=== PATIENT | female | born 1940 | race African-American/Black ===

== ENCOUNTER 2016-08-02 13:31 | Emergency (ER) | payer MEDICARE ==
[~2016-08-02] VITALS: Ht 160 cm; Wt 90.0 kg
[~2016-08-02 13:31] MED LIST changes: -CHLO25TA2 PO; -CLON0.1T PO; -HYDR-3800 PO; -HYDR25TA5 PO; -HYDR50TA15 PO; -METO100T9 PO
[2016-08-02 13:33] VITALS: BP 206/113; PULSE 68; RESP 14; TEMP 97.6; O2SAT 94
[2016-08-09] MEDS ORDERED: LOVA10TA PO (10:55)
[2016-08-09] MEDS ORDERED: HYDR25TA35 PO (10:55)
[2016-08-09] MEDS ORDERED: POTA-163 PO (10:55)
[2016-09-01] MEDS ORDERED: METO100T9 PO (11:51)
[2016-09-01] MEDS ORDERED: HYDR25TA5 PO (11:51)
[2016-09-13] MEDS ORDERED: HYDR25TA5 PO (10:25)
[2016-11-28] MEDS ORDERED: CHLO25TA2 PO (16:07)
[2016-11-28] MEDS ORDERED: HYDR50TA15 PO (16:07)
[2016-11-28] MEDS ORDERED: CLON0.1T PO ×2 (16:12→16:43)
[2016-12-30] MEDS ORDERED: HYDR-3800 PO (10:49)
[2016-12-30] MEDS ORDERED: CHLO25TA2 PO (10:49)
[2016-12-30] MEDS ORDERED: CLON0.1T PO (10:49)
[2017-01-10] MEDS ORDERED: METO100T PO (10:21)
== END 2016-08-02 18:50 | disposition left against medical advice (07) ==
LOC: NED 13:31
DX: R53.1 Weakness (principal)
CPT/HCPCS: 99281

== ENCOUNTER → 2016-08-02 | Outpatient (CLI) | payer MEDICARE ==
[~2016-08-02] MED LIST: ACET325T11 PO; CETI10 PO; CHLO25TA2 PO; CLON.1 PO; CLON0.1T PO; HYDR-2768 PO; HYDR-3800 PO; HYDR25TA35 PO; HYDR25TA5 PO; HYDR50TA15 PO; KCL20 PO; LOVA10TA PO; METO100T PO; METO100T9 PO; POTA-163 PO; PRED20 PO; VENTAER INH
[2016-08-02 15:37] LABS: AUTOMATED NEUTROPHIL # 4.2 TH/MM3 (1.8-7.7); BASOPHIL # 0.1 TH/MM3 (0-0.2); BASOPHIL % 1.3 % (0.0-2.0); EOSINOPHIL # 0.3 TH/MM3 (0-0.4); EOSINOPHIL % 3.6 % (0.0-4.0); HEMATOCRIT 45.7 % (35.0-46.0); HEMO FLAGS DIFF FINAL; LYMPH % 34.4 % (9.0-44.0); LYMPHOCYTE # 2.7 TH/MM3 (1.0-4.8); MEAN CELL VOLUME 78.1 FL (80.0-100.0); MEAN CORPUSCULAR HEMOGLOBIN 25.4 PG (27.0-34.0); MEAN CORPUSCULAR HGB CONC 32.5 % (32.0-36.0); MONO % 7.4 % (0.0-8.0); NEUT % 53.3 % (16.0-70.0); PLATELET COUNT 255 TH/MM3 (150-450); RED BLOOD COUNT 5.85 MIL/MM3 (4.00-5.30); RED CELL DISTRIBUTION WIDTH 15.7 % (11.6-17.2); WHITE BLOOD COUNT 7.9 TH/MM3 (4.0-11.0)
[2016-08-02 16:13] LABS: ALT (GPT) 33 U/L (10-53); ANION GAP 5 MEQ/L (5-15); AST (GOT) 23 U/L (15-37); BICARBONATE 33.3 MEQ/L (21.0-32.0); BLOOD UREA NITROGEN 9 MG/DL (7-18); CHLORIDE 98 MEQ/L (98-107); GLOMERULAR FILTRATION RATE 80 ML/MIN (>89); GLUCOSE,FASTING 96 MG/DL (74-99); SODIUM (NA) 136 MEQ/L (136-145)
[2016-08-02 16:31] LABS: POTASSIUM 3.7 MEQ/L (3.5-5.1)
[2016-08-02 16:36] LABS: ALKALINE PHOSPHATASE 70 U/L (45-117); TOTAL BILIRUBIN ADULT 0.6 MG/DL (0.2-1.0)
== END ==
LOC: CLAB 15:23
PROVIDERS: ATTEND Family Medicine
DX: E53.8 Deficiency of other specified B group vitamins (principal); J43.9 Emphysema, unspecified; E87.6 Hypokalemia; I10 Essential (primary) hypertension; D64.9 Anemia, unspecified
CPT/HCPCS: 36415; 80053; 82607; 85025

== ENCOUNTER → 2016-08-03 | Outpatient (CLI) | payer MEDICARE ==
[~2016-08-03] MED LIST changes: +CHLO25TA2 PO; +CLON0.1T PO; +HYDR-3800 PO; +HYDR25TA5 PO; +HYDR50TA15 PO; +METO100T9 PO
[2016-08-03 13:15] LABS: HDL CHOLESTEROL 48.8 MG/DL (40.0-60.0); LDL CHOLESTEROL 106 MG/DL (0-99)
[2016-08-03 17:31] LABS: HEMOGLOBIN A1a 1.2 %; HEMOGLOBIN A1b 0.9 %; HEMOGLOBIN Ao 85.1 %; HEMOGLOBIN F 1.2 %; HEMOGLOBIN LA1C 1.9 %; HEMOGLOBIN P3 3.6 %
== END ==
LOC: CLAB 12:17
PROVIDERS: ATTEND Family Medicine
DX: E78.5 Hyperlipidemia, unspecified (principal); M79.2 Neuralgia and neuritis, unspecified; R73.09 Other abnormal glucose
CPT/HCPCS: 36415; 80061; 83036

== ENCOUNTER → 2016-09-12 | Outpatient (CLI) | payer MEDICARE ==
[~2016-09-12] MED LIST changes: -ACET325T11 PO; -CETI10 PO; -HYDR-2768 PO; -KCL20 PO; -PRED20 PO
--- NOTE | 2016-09-14 08:59 | RSPPFT ---
DATE OF PROCEDURE: 09/12/16 COMMENTS: Spirometry shows FVC is 1.5 at 71% of predicted, FEV1 of 1.3 at 87%, FEV1/FVC ratio is normal. Flow is decreased at FEF 25, FEF 50, FEF 25-75. There is no response following acutely inhaled bronchodilator treatment. Lung volumes show residual volume is increased. TLC is normal. Diffusion capacity is decreased. Flow volume loop indicates a normal pattern. IMPRESSION: 1. Mild small airways obstructive lung disease. 2. No response after bronchodilator treatment. 3. Lung volumes show hyperinflation. 4. Moderate loss in diffusion capacity.
== END ==
LOC: HRSP 09:06
PROVIDERS: ATTEND Specialist
DX: J84.10 Pulmonary fibrosis, unspecified (principal)
CPT/HCPCS: 94060; 94726; 94729

== ENCOUNTER 2016-12-15 11:03 | Emergency (ER) | payer MEDICARE ==
[~2016-12-15 11:03] MED LIST changes: -HYDR-3800 PO; -HYDR25TA35 PO; -HYDR25TA5 PO; -METO100T PO
[2016-12-15 11:05] VITALS: BP 204/104; PULSE 90; RESP 20; TEMP 97.8; O2SAT 92
[2016-12-15 11:45] VITALS: O2SAT 96
[2016-12-15] MEDS ORDERED: SODIUM CHLORIDE 0.9% FLUSH 10 ML FLUSH IV FLUSH PRN (11:45)
[2016-12-15 12:05] LABS: AUTOMATED NEUTROPHIL # 2.6 TH/MM3 (1.8-7.7); BASOPHIL # 0.1 TH/MM3 (0-0.2); EOSINOPHIL # 0.1 TH/MM3 (0-0.4); EOSINOPHIL % 2.4 % (0.0-4.0); HEMATOCRIT 42.7 % (35.0-46.0); HEMO FLAGS DIFF FINAL; LYMPH % 42.1 % (9.0-44.0); LYMPHOCYTE # 2.3 TH/MM3 (1.0-4.8); MEAN CELL VOLUME 77.9 FL (80.0-100.0); MEAN CORPUSCULAR HEMOGLOBIN 25.9 PG (27.0-34.0); MEAN CORPUSCULAR HGB CONC 33.3 % (32.0-36.0); MONO % 7.3 % (0.0-8.0); NEUT % 47.2 % (16.0-70.0); PLATELET COUNT 240 TH/MM3 (150-450); RED BLOOD COUNT 5.48 MIL/MM3 (4.00-5.30); RED CELL DISTRIBUTION WIDTH 14.5 % (11.6-17.2); WHITE BLOOD COUNT 5.5 TH/MM3 (4.0-11.0)
[2016-12-15 12:20] LABS: BACTERIA, URINE RARE /hpf; BLOOD, URINE NEG (NEG); COMMENT (UR) CULT NOT INDICATED; CULTURE IF INDICATED CULT NOT INDICATED; GLUCOSE,URINE NEG (NEG); KETONE, URINE NEG (NEG); NITRITE,URINE NEG (NEG); PH, URINE 7.5 (5.0-8.5); RENAL EPITHELIAL CELLS <1 /hpf; SQUAMOUS EPITHELIAL CELL URINE 4 /hpf (0-5); TRANSITIONAL EPI CELLS, URINE <1 /hpf; URINE COLOR LIGHT-YELLOW (YELLW/STRAW)
[2016-12-15 12:27] LABS: ALT (GPT) 28 U/L (10-53); ANION GAP 8 MEQ/L (5-15); AST (GOT) 27 U/L (15-37); BICARBONATE 31.2 MEQ/L (21.0-32.0); BLOOD UREA NITROGEN 12 MG/DL (7-18); CHLORIDE 96 MEQ/L (98-107); GLOMERULAR FILTRATION RATE 79 ML/MIN (>89); POTASSIUM 3.2 MEQ/L (3.5-5.1); SODIUM (NA) 135 MEQ/L (136-145)
[2016-12-15 12:30] LABS: ALKALINE PHOSPHATASE 71 U/L (45-117); TOTAL BILIRUBIN ADULT 0.5 MG/DL (0.2-1.0)
--- NOTE | 2016-12-15 12:46 | RADRPT ---
EXAM DATE/TIME: 12/15/2016 12:06 [facility] COMPARISON: No previous studies available for comparison. INDICATIONS : Left leg swelling. MEDICAL HISTORY : Congestive heart failure. Hypercholesterolemia. Osteoporosis. Cataracts. Cardiomegaly. Chest pain. HTN. COPD. Dyspnea. Ulcer. GERD. Spinal stenosis. Arthritis. Anemia. SURGICAL HISTORY : Tubal ligation. Partial hysterectomy from tubal . Left breast biopsy. Blood transfusions. ENCOUNTER: Initial ACUITY: 4 - 6 days PAIN SCORE: 4/10 LOCATION: Left leg. TECHNIQUE: Venous ultrasound of the leg was performed from the inguinal ligament to the proximal calf. Real-yahaira e, color Doppler and spectral tracing, compression and augmentation techniques were used. FINDINGS: There is normal compressibility of the deep venous system from the inguinal region to the proximal ca lf. No echogenic clot is seen in the lumen of the common femoral, femoral, popliteal, and posterior tibial veins. There is a normal response of the venous system to proximal and distal augmentation an d respiration. CONCLUSION: No DVT is identified within the left lower extremity. Jose A Zhu MD on December 15, 2016 at 12:43 Board Certified Radiologist. This report was verified electronically.
--- NOTE | 2016-12-15 12:57 | PD ---
HPI Chief Complaint: Abdominal Pain Time Seen by Provider: 11:25 Travel History International Travel<30 days: No Contact w/Intl Traveler<30days: No Traveled to known affect area: No History of Present Illness HPI 76-year-old female complains of left leg pain and swelling with radiation into the L abdomen. As a stabbing quality. She reports feeling somewhat lightheaded which she describes as "feeling sick" with some intermittent cloudiness of vision. Dyspnea on exertion and orthopnea also reported. Patient recently changed multiple medications. She thinks that might be causing her symptoms. PFSH Past Medical History Hx Anticoagulant Therapy: No Anemia: Yes Arthritis: Yes Autoimmune Disease: No Cancer: No Cardiovascular Problems: No High Cholesterol: Yes Chemotherapy: No Chest Pain: Yes Congestive Heart Failure: Yes COPD: Yes Cerebrovascular Accident: No Diabetes: No Diminished Hearing: No Endocrine: Yes Gastrointestinal Disorders: Yes GERD: Yes Genitourinary: No Hypertension: Yes Immune Disorder: No Musculoskeletal: Yes ("DISC PROBLEMS" SPINAL STENOSIS) Neurologic: Yes Psychiatric: No Reproductive: No Respiratory: Yes Immunizations Current: Yes Ulcer: Yes (1979) Menopausal: Yes Tubal Ligation: Yes Past Surgical History Gynecologic Surgery: Yes (PARTIAL HYSTERECTOMY FOM TUBAL ) Hysterectomy: No Oral Surgery: Yes (TEETH PULLED) Other Surgery: Yes (BIOPSY LEFT BREAST, RESULTS NEGATIVE) Social History Alcohol Use: No Tobacco Use: No (QUIT SMOKING 1992 After 30 years) Substance Use: No Allergies-Medications (Allergen,Severity, Reaction): Coded Allergies: No Known Allergies (Unverified , 12/15/16) Reported Meds & Prescriptions Reported Meds & Active Scripts Active Clonidine (Clonidine HCl) 0.1 Mg Tab 0.1 Mg PO Q8HR PRN Chlorthalidone 25 Mg Tab 25 Mg PO DAILY Potassium Chloride ER (Potassium Chloride) 20 Meq Tab 20 Meq PO DAILY Ventolin Hfa 18 GM Inh (Albuterol Sulfate) 90 Mcg/Act Aer 2 Puff INH Q6H PRN Reported Metoprolol Tartrate 100 Mg Tab 100 Mg PO BID Hydralazine HCl 50 Mg Tablet 50 Mg PO TID Review of Systems Except as stated in HPI: all other systems reviewed are Neg Physical Exam Narrative GENERAL: 76 yo F, WNWD, NAD SKIN: Warm and dry. HEAD: Atraumatic. Normocephalic. EYES: Pupils equal and round. No scleral icterus. No injection or drainage. ENT: No nasal bleeding or discharge. Mucous membranes pink and moist. NECK: Trachea midline. No JVD. CARDIOVASCULAR: Regular rate and rhythm. RESPIRATORY: No accessory muscle use. Clear to auscultation. Breath sounds equal bilaterally. GASTROINTESTINAL: Abdomen soft, non-tender, nondistended. Hepatic and splenic margins not palpable. LLQ non-tender. MUSCULOSKELETAL: Minimal swelling LLE. No erythema/warmth/induration. Ambulatory. NEUROLOGICAL: Awake and alert. No obvious cranial nerve deficits. Motor grossly within normal limits. Five out of 5 muscle strength in the arms and legs. Normal speech. PSYCHIATRIC: Appropriate mood and affect; insight and judgment normal. Data Data Last Documented VS Vital Signs Date Time Temp Pulse Resp B/P Pulse Ox O2 Delivery O2 Flow Rate FiO2 12/15/16 11:45 96 Room Air 12/15/16 11:05 97.8 90 20 204/104 Orders Complete Blood Count With Diff (12/15/16 11:45) Comprehensive Metabolic Panel (12/15/16 11:45) Lipase (12/15/16 11:45) Urinalysis - C+S If Indicated (12/15/16 11:45) Iv Access Insert/Monitor (12/15/16 11:45) Ecg Monitoring (12/15/16 11:45) Oximetry (12/15/16 11:45) Sodium Chloride 0.9% Flush (Ns Flush) (12/15/16 11:45) Us Leg Venous Doppler (12/15/16 ) B-Type Natriuretic Peptide (12/15/16 12:57) Ckmb (Isoenzyme) Profile (12/15/16 12:57) Troponin I (12/15/16 12:57) Chest, Single Ap (12/15/16 12:57) Sodium Chloride 0.9% Flush (Ns Flush) (12/15/16 13:00) CKMB (12/15/16 11:45) CKMB% (12/15/16 11:45) Electrocardiogram (12/15/16 11:32) Labs Laboratory Tests Test 12/15/16 12/15/16 11:30 11:45 Urine Color LIGHT-YELLOW Urine Turbidity HAZY Urine pH 7.5 Urine Specific [place] 1.007 Urine Protein NEG mg/dL Urine Glucose (UA) NEG mg/dL Urine Ketones NEG mg/dL Urine Occult Blood NEG Urine Nitrite NEG Urine Bilirubin NEG Urine Urobilinogen LESS THAN 2.0 MG/DL Urine Leukocyte Esterase MOD Urine RBC 1 /hpf Urine WBC 8 /hpf Urine Squamous Epithelial 4 /hpf Cells Urine Transitional Epithelial <1 /hpf Cells Urine Renal Epithelial Cells <1 /hpf Urine Bacteria RARE /hpf Microscopic Urinalysis Comment CULT NOT INDICATED White Blood Count 5.5 TH/MM3 Red Blood Count 5.48 MIL/MM3 Hemoglobin 14.2 GM/DL Hematocrit 42.7 % Mean Corpuscular Volume 77.9 FL Mean Corpuscular Hemoglobin 25.9 PG Mean Corpuscular Hemoglobin 33.3 % Concent Red Cell Distribution Width 14.5 % Platelet Count 240 TH/MM3 Mean Platelet Volume 8.8 FL Neutrophils (%) (Auto) 47.2 % Lymphocytes (%) (Auto) 42.1 % Monocytes (%) (Auto) 7.3 % Eosinophils (%) (Auto) 2.4 % Basophils (%) (Auto) 1.0 % Neutrophils # (Auto) 2.6 TH/MM3 Lymphocytes # (Auto) 2.3 TH/MM3 Monocytes # (Auto) 0.4 TH/MM3 Eosinophils # (Auto) 0.1 TH/MM3 Basophils # (Auto) 0.1 TH/MM3 CBC Comment DIFF FINAL Differential Comment Sodium Level 135 MEQ/L Potassium Level 3.2 MEQ/L Chloride Level 96 MEQ/L Carbon Dioxide Level 31.2 MEQ/L Anion Gap 8 MEQ/L Blood Urea Nitrogen 12 MG/DL Creatinine 0.85 MG/DL Estimat Glomerular Filtration 79 ML/MIN Rate Random Glucose 106 MG/DL Calcium Level 9.3 MG/DL Total Bilirubin 0.5 MG/DL Aspartate Amino Transf 27 U/L (AST/SGOT) Alanine Aminotransferase 28 U/L (ALT/SGPT) Alkaline Phosphatase 71 U/L Total Creatine Kinase 231 U/L Creatine Kinase MB 1.2 NG/ML Creatine Kinase MB % 0.5 % Troponin I LESS THAN 0.02 NG/ML B-Type Natriuretic Peptide 50 PG/ML Total Protein 8.6 GM/DL Albumin 4.0 GM/DL Lipase 154 U/L [facility] Medical Decision Making Medical Screen Exam Complete: Yes Emergency Medical Condition: Yes Medical Record Reviewed: Yes Differential Diagnosis DVT, CHF, PNA, Cellulitis Narrative Course CBC & BMP Diagram 12/15/16 11:45 LFTs normal Lipase 154 BNP 50 Tn < 0.02 Total CK 231 UA: No UTI Last 24 hours Impressions Chest X-Ray 12/15/16 1257 Signed Impressions: Service Date/Time: November 12:59 - CONCLUSION: Stable chest x-ray with low lung volumes and chronic interstitial lung disease bilaterally. Jose A Zhu MD Lower Extremity Ultrasound 12/15/16 0000 Signed Impressions: Service Date/Time: November 12:06 - CONCLUSION: No DVT is identified within the left lower extremity. Jose A Zhu MD The patient is resting comfortably and feels better, is alert and in no distress. The patients results and examination findings were discussed. The repeat examination is unremarkable and benign. The history, exam, diagnostic testing, and current condition do not suggest any significant pathology to warrant further testing, continued ED treatment, admission, or surgical evaluation at this point. The vital signs have been stable. The patient does not have uncontrollable pain, intractable vomiting, or other significant symptoms. The patient's condition is stable and appropriate for discharge. The patient will pursue further outpatient evaluation with a primary care physician or other designated or consulting physician as indicated in the discharge instructions. The patient expressed understanding and was agreeable with this plan. Diagnosis Primary Impression: Leg pain, left Additional Impressions: Dyspnea Qualified Code: R06.00 - Dyspnea, unspecified type Hypertension Referrals: Anselmo Cope MD R3 2 days Additional Instructions: You have a choice when it comes to health care, and we are glad that you chose [facility]. Hopefully, we have met your expectations on today's visit. You are welcome to return to [facility] at any time, as we are committed to meeting the health care needs of our community. Med/Other Pt SpecificInfo: Med Stopped Disposition: DISCHARGE HOME Condition: Stable Escobar Sanchez MD December 15, 2016 12:57
[2016-12-15] MEDS ORDERED: SODIUM CHLORIDE 0.9% FLUSH 10 ML FLUSH IVF PRN (13:00)
--- NOTE | 2016-12-15 13:22 | RADRPT ---
EXAM DATE/TIME: 12/15/2016 12:59 [facility] COMPARISON: CT PULMONARY ANGIOGRAM, April 19, 2013, 21:14. CHEST PA & LAT, July 22, 2014, 9:47. CHEST S DESMOND AP, April 19, 2013, 18:33. INDICATIONS : Short of breath MEDICAL HISTORY : Hypertension. Chronic obstructive pulmonary disease. SURGICAL HISTORY : None. ENCOUNTER: Initial ACUITY: 4 - 6 days PAIN SCORE: 0/10 LOCATION: Bilateral chest FINDINGS: Portable AP view of the chest demonstrates a normal-sized cardiac silhouette. Lung volumes remain dec reased. There are normal coarse interstitial reticular opacities bilaterally being more severe in the mid and lower lung zones. No pleural effusion or pneumothorax is identified. The bones and soft tiss ues demonstrate no acute finding. There are degenerative changes of the right glenohumeral joint. CONCLUSION: Stable chest x-ray with low lung volumes and chronic interstitial lung disease bilaterally. Jose A Zhu MD on December 15, 2016 at 13:19 Board Certified Radiologist. This report was verified electronically.
[2016-12-15 13:38] LABS: CREATINE KINASE 231 U/L (26-192)
[2016-12-15 13:50] LABS: CKMB 1.2 NG/ML (0.5-3.6)
[2016-12-15] MEDS ORDERED: HYDR-3800 PO (14:57)
[2016-12-15] MEDS ORDERED: METO100T PO (15:01)
--- NOTE | 2016-12-16 14:31 | EKG ---
Date Performed: 12/15/2016 Time Performed: 11:32:02 PTAGE: 76 years EKG: Sinus rhythm NORMAL ECG Compared to prior tracing no significant change PREVIOUS TRACING : 04/19/2013 18.01 DOCTOR: Taran Becerra Interpretating Date/Time 12/16/2016 14:24:53
[2016-12-30] MEDS ORDERED: HYDR-3800 PO (10:49)
[2016-12-30] MEDS ORDERED: CLON0.1T PO (10:49)
[2016-12-30] MEDS ORDERED: CHLO25TA2 PO (10:49)
[2017-01-10] MEDS ORDERED: METO100T PO (10:21)
== END 2016-12-15 15:24 | disposition home or self-care (01) ==
LOC: NEPD 11:03
DX: M79.605 Pain in left leg (principal); R06.00 Dyspnea, unspecified; I10 Essential (primary) hypertension; D64.9 Anemia, unspecified
CPT/HCPCS: 71010; 80053; 81001; 82550; 82552; 83690; 83880; 84484; 85025; 93005; 93971; 99285

== ENCOUNTER 2017-03-13 07:07 | Observation (INO) | payer MEDICARE ==
[~2017-03-13] VITALS: Ht 160 cm; Wt 89.0 kg
[~2017-03-13 07:07] MED LIST changes: +HYDR-3800 PO; -HYDR50TA15 PO; -LOVA10TA PO; +METO100T PO; -METO100T9 PO
[2017-03-13 07:11] VITALS: BP 164/83; PULSE 80; RESP 24; TEMP 97.8; O2SAT 97
[2017-03-13 08:00] LABS: AUTOMATED NEUTROPHIL # 3.8 TH/MM3 (1.8-7.7); BASOPHIL # 0.1 TH/MM3 (0-0.2); BASOPHIL % 1.1 % (0.0-2.0); EOSINOPHIL # 0.2 TH/MM3 (0-0.4); EOSINOPHIL % 3.6 % (0.0-4.0); HEMATOCRIT 41.5 % (35.0-46.0); HEMO FLAGS DIFF FINAL; LYMPH % 29.8 % (9.0-44.0); MEAN CELL VOLUME 78.8 FL (80.0-100.0); MEAN CORPUSCULAR HEMOGLOBIN 25.5 PG (27.0-34.0); MEAN CORPUSCULAR HGB CONC 32.4 % (32.0-36.0); MONO % 8.3 % (0.0-8.0); NEUT % 57.2 % (16.0-70.0); PLATELET COUNT 191 TH/MM3 (150-450); RED BLOOD COUNT 5.27 MIL/MM3 (4.00-5.30); RED CELL DISTRIBUTION WIDTH 15.4 % (11.6-17.2); WHITE BLOOD COUNT 6.6 TH/MM3 (4.0-11.0)
[2017-03-13 08:14] LABS: APTT (PATIENT) 27.7 SEC (24.3-30.1); PROTHROMBIN TIME - PATIENT 10.6 SEC (9.8-11.6)
--- NOTE | 2017-03-13 08:17 | RADRPT ---
EXAM DATE/TIME: 03/13/2017 08:09 [facility] COMPARISON: CHEST SINGLE AP, December 15, 2016, 12:59. CHEST PA & LAT, July 22, 2014, 9:47. INDICATIONS : Pain on left side radiating down left shoulder and arm. MEDICAL HISTORY : Hypertension. Chronic obstructive pulmonary disease. SURGICAL HISTORY : None. ENCOUNTER: Initial ACUITY: 1 day PAIN SCORE: 7/10 LOCATION: Left chest FINDINGS: Redemonstration of diffuse mid to lower lobe predominance chronic interstitial opacities. There is im proved aeration in the left lower lung zone compared to remote prior exam. No significant new focal p leural or parenchymal opacities. Cardiomediastinal contours are within normal limits. Remainder of ex am is unchanged. CONCLUSION: 1. Stable chronic interstitial lung disease. 2. No significant interval change. Brock Chiu MD on March 13, 2017 at 8:11 Board Certified Radiologist. This report was verified electronically.
[2017-03-13 08:23] LABS: ANION GAP 6 MEQ/L (5-15); BLOOD UREA NITROGEN 10 MG/DL (7-18); CHLORIDE 93 MEQ/L (98-107); GLOMERULAR FILTRATION RATE 92 ML/MIN (>89); POTASSIUM 3.5 MEQ/L (3.5-5.1); SODIUM (NA) 131 MEQ/L (136-145)
[2017-03-13 08:27] LABS: CREATINE KINASE 108 U/L (26-192)
[2017-03-13 08:41] LABS: CKMB 0.8 NG/ML (0.5-3.6)
[2017-03-13 09:17] VITALS: BP 179/84; PULSE 85; RESP 20; TEMP 97.7; O2SAT 96
[2017-03-13] MEDS ORDERED: TYLE325T PO (09:28)
--- NOTE | 2017-03-13 09:55 | PD ---
HPI Chief Complaint: Chest Pain Time Seen by Provider: 09:16 Travel History International Travel<30 days: No Contact w/Intl Traveler<30days: No Traveled to known affect area: No History of Present Illness HPI c/o cp, pressure, 8/10, intermittently occurring for past 2 days, last episode about 4 hrs ago. no alleviating/aggravating factors PFSH Past Medical History Hx Anticoagulant Therapy: No Anemia: Yes Arthritis: Yes Autoimmune Disease: No Cancer: No Cardiovascular Problems: No High Cholesterol: Yes Chemotherapy: No Chest Pain: Yes Congestive Heart Failure: Yes COPD: Yes Cerebrovascular Accident: No Diabetes: No Diminished Hearing: No Endocrine: Yes Gastrointestinal Disorders: Yes GERD: Yes Genitourinary: No Hypertension: Yes Immune Disorder: No Implanted Vascular Access Dvce: No Musculoskeletal: Yes ("DISC PROBLEMS" SPINAL STENOSIS) Neurologic: Yes Psychiatric: No Reproductive: No Respiratory: Yes Immunizations Current: Yes Ulcer: Yes (1979) ?: Not Menopausal: Yes Tubal Ligation: Yes Past Surgical History Gynecologic Surgery: Yes (PARTIAL HYSTERECTOMY FOM TUBAL ) Hysterectomy: Yes (partial) Oral Surgery: Yes (TEETH PULLED) Other Surgery: Yes (BIOPSY LEFT BREAST, RESULTS NEGATIVE) Social History Alcohol Use: No Tobacco Use: No (QUIT SMOKING 1992 After 30 years) Substance Use: No Allergies-Medications (Allergen,Severity, Reaction): Coded Allergies: No Known Allergies (Unverified , 03/13/17) Reported Meds & Prescriptions Reported Meds & Active Scripts Active Metoprolol Tartrate 100 Mg Tab 100 Mg PO BID Hydralazine HCl 50 Mg Tablet 50 Mg PO TID Clonidine (Clonidine HCl) 0.1 Mg Tab 0.1 Mg PO Q8HR PRN Chlorthalidone 25 Mg Tab 25 Mg PO DAILY Potassium Chloride ER (Potassium Chloride) 20 Meq Tab 20 Meq PO DAILY Ventolin Hfa 18 GM Inh (Albuterol Sulfate) 90 Mcg/Act Aer 2 Puff INH Q6H PRN Reported Tylenol (Acetaminophen) 325 Mg Tab 500 Mg PO Q6H PRN Physical Exam Narrative GENERAL: SKIN: Warm and dry. no rash noted on chest wall HEAD: Atraumatic. Normocephalic. EYES: Pupils equal and round. No scleral icterus. No injection or drainage. ENT: No nasal bleeding or discharge. Mucous membranes pink and moist. NECK: Trachea midline. No JVD. CARDIOVASCULAR: Regular rate and rhythm. RESPIRATORY: No accessory muscle use. Clear to auscultation. Breath sounds equal bilaterally. GASTROINTESTINAL: Abdomen soft, non-tender, nondistended. Hepatic and splenic margins not palpable. MUSCULOSKELETAL: Extremities without clubbing, cyanosis, or edema. No obvious deformities. NEUROLOGICAL: Awake and alert. No obvious cranial nerve deficits. Motor grossly within normal limits. Five out of 5 muscle strength in the arms and legs. Normal speech. PSYCHIATRIC: Appropriate mood and affect; insight and judgment normal. Data Data Last Documented VS Vital Signs Date Time Temp Pulse Resp B/P (MAP) Pulse Ox O2 Delivery O2 Flow Rate FiO2 03/13/17 09:17 97.7 85 20 179/84 (115) 96 Room Air Orders Orders Electrocardiogram (03/13/17 07:19) Complete Blood Count With Diff (03/13/17 07:19) Basic Metabolic Panel (Bmp) (03/13/17 07:19) Ckmb (Isoenzyme) Profile (03/13/17 07:19) Troponin I (03/13/17 07:19) Iv Access Insert/Monitor (03/13/17 07:19) Ecg Monitoring (03/13/17 07:19) Oxygen Administration (03/13/17 07:19) Oximetry (03/13/17 07:19) Magnesium (Mg) (03/13/17 07:22) Prothrombin Time / Inr (Pt) (03/13/17 07:22) Act Partial Throm Time (Ptt) (03/13/17 07:22) Chest, Pa & Lat (03/13/17 07:19) CKMB (03/13/17 07:37) CKMB% (03/13/17 07:37) Labs Laboratory Tests Test 03/13/17 07:37 White Blood Count 6.6 TH/MM3 Red Blood Count 5.27 MIL/MM3 Hemoglobin 13.4 GM/DL Hematocrit 41.5 % Mean Corpuscular Volume 78.8 FL Mean Corpuscular Hemoglobin 25.5 PG Mean Corpuscular Hemoglobin Concent 32.4 % Red Cell Distribution Width 15.4 % Platelet Count 191 TH/MM3 Mean Platelet Volume 7.9 FL Neutrophils (%) (Auto) 57.2 % Lymphocytes (%) (Auto) 29.8 % Monocytes (%) (Auto) 8.3 % Eosinophils (%) (Auto) 3.6 % Basophils (%) (Auto) 1.1 % Neutrophils # (Auto) 3.8 TH/MM3 Lymphocytes # (Auto) 2.0 TH/MM3 Monocytes # (Auto) 0.5 TH/MM3 Eosinophils # (Auto) 0.2 TH/MM3 Basophils # (Auto) 0.1 TH/MM3 CBC Comment DIFF FINAL Differential Comment Prothrombin Time 10.6 SEC Prothromb Time International Ratio 1.0 RATIO Activated Partial Thromboplast Time 27.7 SEC Blood Urea Nitrogen 10 MG/DL Creatinine 0.74 MG/DL Random Glucose 107 MG/DL Calcium Level 8.4 MG/DL Sodium Level 131 MEQ/L Potassium Level 3.5 MEQ/L Chloride Level 93 MEQ/L Carbon Dioxide Level 32.0 MEQ/L Anion Gap 6 MEQ/L Estimat Glomerular Filtration Rate 92 ML/MIN Magnesium Level 2.0 MG/DL Total Creatine Kinase 108 U/L Creatine Kinase MB 0.8 NG/ML Troponin I LESS THAN 0.02 NG/ML MDM Medical Decision Making Medical Screen Exam Complete: Yes Emergency Medical Condition: Yes Medical Record Reviewed: Yes Interpretation(s) nsr 80, baseline motion artifact, j point elevation noted, no stemi pattern Differential Diagnosis pna v ptx v mi v nonstemi Narrative Course due to patient essentially neg cxr (only chronic interstitial changes), no pna found. based on evaluation, first set neg of troponin...however due to age and h/o cardiomegaly i believe it would be prudent to evaluate for possibility of nonstemi. Diagnosis Primary Impression: cp r/o mi Admitting Information Admitting Physician Requests: Observation Hong Hawthorne MD Mar 13, 2017 09:55
[2017-03-13] MEDS ORDERED: ASPIRIN 81 MG CHEW TAB PO ONE (10:15)
[2017-03-13] MEDS ORDERED: MORPHINE SULFATE 4 MG/ML INJ IV PUSH ONE (10:15)
[2017-03-13] MEDS ORDERED: NITROGLYCERIN 2% OINT 1 GM PACKET TOP ONE (10:15)
[2017-03-13 11:23] VITALS: BP 136/85
--- NOTE | 2017-03-13 12:36 | EKG ---
Date Performed: 03/13/2017 Time Performed: 07:30:14 PTAGE: 76 years EKG: Sinus rhythm POSSIBLE RIGHT VENTRICULAR CONDUCTION DELAY BORDERLINE ECG PREVIOUS TRACING : 12/15/2016 11.32 No significant change from previous tracing noted. DOCTOR: Juvencio Lazcano Interpretating Date/Time 03/13/2017 12:35:12
[2017-03-13] MEDS ORDERED: SODIUM CHLORIDE 0.9% FLUSH 10 ML FLUSH IV FLUSH PRN (12:45)
[2017-03-13] MEDS ORDERED: ONDANSETRON HCL 4 MG/2 ML VIAL IV PRN (12:45)
[2017-03-13] MEDS ORDERED: NITROGLYCERIN 0.4 MG SL 25 TABS/BTL SL PRN (12:45)
[2017-03-13] MEDS ORDERED: ACETAMINOPHEN 500 MG CPLT PO PRN (12:45)
[2017-03-13 13:30] VITALS: O2SAT 92
[2017-03-13 13:37] LABS: CREATINE KINASE 101 U/L (26-192)
[2017-03-13 13:49] LABS: CKMB 0.9 NG/ML (0.5-3.6)
--- NOTE | 2017-03-13 14:29 | HHI.HP ---
HPI Primary Care Physician Avila Becerra MD Chief Complaint Chest discomfort History of Present Illness Mrs. Neal is a 76-year-old female patient with a known medical history of COPD , hypertension, CHF, and dyslipidemia who presented to the ED with complaints of chest discomfort. Patient states that she has been having an intermittent, aching pain in her left chest, an 8/10 on pain scale, area radiating to her left arm and to her left posterior back for 5 days now. Does state it is worse with movement. Denies any relieving factors. Admits to associated dyspnea. Patient has been following up with Dr. Loco in the outpatient setting for chronic bronchitis, has been given a steroid taper and antibiotics 3 weeks ago with noticeable improvement in her breathing. She does state that the pain she has been having the last 5 days is a different pain than the pain related to her bronchitis. Does have a previous smoking history but has quit over 30 years ago. Review of Systems Respiratory: COMPLAINS OF: See HPI, Cough, Shortness of breath Cardiovascular: COMPLAINS OF: See HPI, Chest pain Past Family Social History Allergies: Coded Allergies: No Known Allergies (Unverified , 03/13/17) Past Medical History COPD HTN Dyslipidemia Anemia Arthritis CHF GERD Spinal stenosis Past Surgical History Partial hysterectomy Left breast biopsy Reported Medications Reported Meds & Active Scripts Active Metoprolol Tartrate 100 Mg Tab 100 Mg PO BID Hydralazine HCl 50 Mg Tablet 50 Mg PO TID Clonidine (Clonidine HCl) 0.1 Mg Tab 0.1 Mg PO Q8HR PRN Chlorthalidone 25 Mg Tab 25 Mg PO DAILY Potassium Chloride ER (Potassium Chloride) 20 Meq Tab 20 Meq PO DAILY Ventolin Hfa 18 GM Inh (Albuterol Sulfate) 90 Mcg/Act Aer 2 Puff INH Q6H PRN Reported Tylenol (Acetaminophen) 325 Mg Tab 500 Mg PO Q6H PRN Active Ordered Medications Current Medications Medications (Trade) Dose Ordered Sig/Damien Route Start Time Stop Time Status Last Admin (NS Flush) 2 ml UNSCH PRN IV FLUSH 03/13/17 12:45 (NS Flush) 2 ml BID IV FLUSH 03/13/17 21:00 (Tylenol) 500 mg Q4H PRN PO 03/13/17 12:45 (Zofran Inj) 4 mg Q6H PRN IV 03/13/17 12:45 (Nitrostat Sl) 0.4 mg Q5M PRN SL 03/13/17 12:45 (Aspirin) 325 mg DAILY PO 03/14/17 09:00 Family History Maternal family medical history significant for hypertension and SD at the age of 74 years. Patient's sister had an SD at the ago of 60. Social History Denies any current tobacco use. Denies any alcohol use. Denies any illicit drug use. Physical Exam Vital Signs Vital Signs Date Time Temp Pulse Resp B/P (MAP) Pulse Ox O2 Delivery O2 Flow Rate FiO2 03/13/17 13:30 92 21 03/13/17 11:23 136/85 (102) 03/13/17 09:17 97.7 85 20 179/84 (115) 96 Room Air 03/13/17 09:17 97.7 85 20 179/84 (115) 96 Room Air 03/13/17 09:17 85 20 96 Room Air 03/13/17 09:17 96 Room Air 03/13/17 07:11 97.8 80 24 164/83 (110) 97 Room Air Physical Exam GENERAL: Well-developed, obese female patient lying in bed comfortably, in nad. SKIN: Warm and dry. No rash. HEAD: Atraumatic. Normocephalic. EYES: Pupils equal and round. No scleral icterus. No injection or drainage. ENT: No nasal bleeding or discharge. Mucous membranes pink and moist. NECK: Trachea midline. No JVD. CARDIOVASCULAR: Regular rate and rhythm. No murmur appreciated. S1 and S2. RESPIRATORY: No accessory muscle use. Clear to auscultation. Breath sounds equal bilaterally. GASTROINTESTINAL: Abdomen soft, non-tender, obese. MUSCULOSKELETAL: Extremities without clubbing, cyanosis, or edema. No obvious deformities. NEUROLOGICAL: Awake and alert. No obvious cranial nerve deficits. Motor grossly within normal limits. Five out of 5 muscle strength in the arms and legs. Normal speech. PSYCHIATRIC: Appropriate mood and affect; insight and judgment normal. Laboratory Laboratory Tests Test 03/13/17 07:37 03/13/17 12:40 White Blood Count 6.6 Red Blood Count 5.27 Hemoglobin 13.4 Hematocrit 41.5 Mean Corpuscular Volume 78.8 Mean Corpuscular Hemoglobin 25.5 Mean Corpuscular Hemoglobin Concent 32.4 Red Cell Distribution Width 15.4 Platelet Count 191 Mean Platelet Volume 7.9 Neutrophils (%) (Auto) 57.2 Lymphocytes (%) (Auto) 29.8 Monocytes (%) (Auto) 8.3 Eosinophils (%) (Auto) 3.6 Basophils (%) (Auto) 1.1 Neutrophils # (Auto) 3.8 Lymphocytes # (Auto) 2.0 Monocytes # (Auto) 0.5 Eosinophils # (Auto) 0.2 Basophils # (Auto) 0.1 CBC Comment DIFF FINAL Differential Comment Prothrombin Time 10.6 Prothromb Time International Ratio 1.0 Activated Partial Thromboplast Time 27.7 Blood Urea Nitrogen 10 Creatinine 0.74 Random Glucose 107 Calcium Level 8.4 Sodium Level 131 Potassium Level 3.5 Chloride Level 93 Carbon Dioxide Level 32.0 Anion Gap 6 Estimat Glomerular Filtration Rate 92 Magnesium Level 2.0 Total Creatine Kinase 108 101 Creatine Kinase MB 0.8 0.9 Troponin I LESS THAN 0.02 LESS THAN 0.02 Result Diagram: 03/13/17 0737 03/13/17 0737 Caprini VTE Risk Assessment Caprini VTE Risk Assessment: No/Low Risk (score <= 1) Caprini Risk Assessment Model Point Value = 1 Point Value = 2 Point Value = 3 Point Value = 5 Age 41-60 Minor surgery BMI > 25 kg/m2 Swollen legs Varicose veins or History of unexplained or recurrent spontaneous Oral contraceptives or hormone replacement Sepsis (< 1 month) Serious lung disease, including pneumonia (< 1 month) Abnormal pulmonary function Acute myocardial infarction Congestive heart failure (< 1 month) History of inflammatory bowel disease Medical patient at bed rest Age 61-74 Arthroscopic surgery Major open surgery (> 45 min) Laparoscopic surgery (> 45 min) Malignancy Confined to bed (> 72 hours) Immobilizing plaster cast Central venous access Age >= 75 History of VTE Family history of VTE Factor V Leiden Prothrombin [id number] Lupus anticoagulant Anticardiolipin antibodies Elevated serum homocysteine Heparin-induced thrombocytopenia Other congenital or acquired thrombophilia Stroke (< 1 month) Elective arthroplasty Hip, pelvis, or leg fracture Acute spinal cord injury (< 1 month) Prophylaxis Regimen Total Risk Factor Score Risk Level Prophylaxis Regimen 0-1 Low Early ambulation 2 Moderate Order ONE of the following: *Sequential Compression Device (SCD) *Heparin 5000 units SQ BID 3-4 Higher Order ONE of the following medications: *Heparin 5000 units SQ TID *Enoxaparin/Lovenox 40 mg SQ daily (WT < 150 kg, CrCl > 30 mL/min) *Enoxaparin/Lovenox 30 mg SQ daily (WT < 150 kg, CrCl > 10-29 mL/min) *Enoxaparin/Lovenox 30 mg SQ BID (WT < 150 kg, CrCl > 30 mL/min) AND/OR *Sequential Compression Device (SCD) 5 or more Highest Order ONE of the following medications: *Heparin 5000 units SQ TID (Preferred with Epidurals) *Enoxaparin/Lovenox 40 mg SQ daily (WT < 150 kg, CrCl > 30 mL/min) *Enoxaparin/Lovenox 30 mg SQ daily (WT < 150 kg, CrCl > 10-29 mL/min) *Enoxaparin/Lovenox 30 mg SQ BID (WT < 150 kg, CrCl > 30 mL/min) AND *Sequential Compression Device (SCD) Assessment and Plan Assessment and Plan #1 Atypical chest pain: Admitted to the chest pain. Serial EKGs and troponins ordered for ruling out purposes. Troponin x 2 negative, awaiting third set. EKG unremarkable. CXR unremarkable for any acute cardiac disease. Patient was seen by Dr. Delgado in the chest pain center with recommendations to undergo a Lexiscan due to her risk factors. Also, Toradol 30 mg IV x 1 will be given for possible musculoskeletal source of pain as well. Patient is refusing further work up despite thorough education about the indication and importance of the test. Patient states she wants to follow up with her doctor in the outpatient setting and to take longer to think about undergoing the Lexiscan. Patient will be discharged and will be encouraged to follow up with PCP. #2 Hypertension: Continue home medications. Patient is stable at this time and adamant about refusal of Lexiscan. She is agreeable to the plan. Juanita Marlow Mar 13, 2017 14:29
--- NOTE | 2017-03-13 15:02 | HHI.DCPOC ---
Discharge Care Plan Diagnosis: (1) Musculoskeletal chest pain Goals to Promote Your Health * To prevent worsening of your condition and complications * To maintain your health at the optimal level Directions to Meet Your Goals Take your medications as prescribed Follow your dietary instruction Follow activity as directed Keep your appointments as scheduled Take your immunizations and boosters as scheduled If your symptoms worsen call your PCP, if no PCP go to Urgent Care Center or Emergency Room Smoking is Dangerous to Your Health. Avoid second hand smoke Call the 24-hour hour crisis hotline for domestic abuse at Juanita Marlow Mar 13, 2017 15:02
[2017-03-13] MEDS ORDERED: KETOROLAC TROMETHAMINE 30 MG/ML (IVP) VIAL IV PUSH ONE (15:15)
[2017-03-13 16:59] VITALS: BP 160/82
[2017-03-13] MEDS ORDERED: SODIUM CHLORIDE 0.9% FLUSH 10 ML FLUSH IV FLUSH SCH (21:00)
[2017-03-14] MEDS ORDERED: ASPIRIN 325 MG TAB PO SCH (09:00)
--- NOTE | 2017-03-14 16:36 | EKG ---
Date Performed: 03/13/2017 Time Performed: 12:48:47 PTAGE: 76 years EKG: Sinus rhythm POSSIBLE RIGHT VENTRICULAR CONDUCTION DELAY BORDERLINE ECG Since PREVIOUS TRACING , no significant change noted PREVIOUS TRACIN03/13/2017 07.30 DOCTOR: Yuliya Saenz Interpretating Date/Time 03/14/2017 16:35:25
[2017-04-13] MEDS ORDERED: CHOL1CAP6 PO (09:35)
[2017-04-13] MEDS ORDERED: DILT0.05 PO (09:52)
[2017-04-13] MEDS ORDERED: POTA-163 PO (10:05)
[2017-04-13] MEDS ORDERED: CHLO25TA2 PO (10:05)
[2017-04-13] MEDS ORDERED: CLON0.1T PO (10:05)
[2017-04-13] MEDS ORDERED: HYDR-3800 PO (10:05)
== END 2017-03-13 16:59 | disposition home or self-care (01) ==
LOC: NEPD 07:07 → NEDA 10:03
DX: R07.89 Other chest pain (principal); E78.00 Pure hypercholesterolemia, unspecified; I11.0 Hypertensive heart disease with heart failure; I50.9 Heart failure, unspecified; J44.9 Chronic obstructive pulmonary disease, unspecified; K21.9 Gastro-esophageal reflux disease without esophagitis; D64.9 Anemia, unspecified; M19.90 Unspecified osteoarthritis, unspecified site; Z87.891 Personal history of nicotine dependence; E78.5 Hyperlipidemia, unspecified; Z79.899 Other long term (current) drug therapy
CPT/HCPCS: 71020; 80048; 82550; 82552; 83735; 84484; 85025; 85610; 85730; 93005; 96374; 96375; 99285; G0378; J1885; J2270

== ENCOUNTER → 2017-03-17 | Outpatient (CLI) | payer MEDICARE ==
[~2017-03-17] MED LIST changes: +CHOL1CAP6 PO; +DILT0.05 PO; +TYLE325T PO
[2017-03-17 09:03] LABS: HEMATOCRIT 40.3 % (35.0-46.0); MEAN CELL VOLUME 78.3 FL (80.0-100.0); MEAN CORPUSCULAR HEMOGLOBIN 24.9 PG (27.0-34.0); MEAN CORPUSCULAR HGB CONC 31.8 % (32.0-36.0); PLATELET COUNT 196 TH/MM3 (150-450); RED BLOOD COUNT 5.15 MIL/MM3 (4.00-5.30); REVIEW FLAG FINAL; WHITE BLOOD COUNT 5.2 TH/MM3 (4.0-11.0)
[2017-03-17 09:38] LABS: ANION GAP 8 MEQ/L (5-15); AST (GOT) 20 U/L (15-37); BICARBONATE 27.9 MEQ/L (21.0-32.0); BLOOD UREA NITROGEN 7 MG/DL (7-18); CHLORIDE 95 MEQ/L (98-107); GLOMERULAR FILTRATION RATE 91 ML/MIN (>89); GLUCOSE,FASTING 112 MG/DL (74-99); POTASSIUM 3.3 MEQ/L (3.5-5.1); SODIUM (NA) 131 MEQ/L (136-145)
[2017-03-17 09:39] LABS: ALT (GPT) 28 U/L (10-53)
[2017-03-17 09:41] LABS: ALKALINE PHOSPHATASE 66 U/L (45-117); TOTAL BILIRUBIN ADULT 0.6 MG/DL (0.2-1.0)
== END ==
LOC: CLAB 08:33
PROVIDERS: ATTEND Family Medicine
DX: I10 Essential (primary) hypertension (principal); D64.9 Anemia, unspecified; R06.02 Shortness of breath; E55.9 Vitamin D deficiency, unspecified
CPT/HCPCS: 36415; 80053; 82306; 85027

== ENCOUNTER → 2017-04-20 | Outpatient (CLI) | payer MEDICARE ==
[~2017-04-20] MED LIST changes: +ALBUAER3 INH; +FLUT1INH7 INH; +LEVO500T8 PO; +METO50TA PO; +ZITH250T PO
[2017-04-20 09:26] LABS: POTASSIUM 3.4 MEQ/L (3.5-5.1)
[2017-04-20 15:47] LABS: HEMOGLOBIN A1a 1.2 %; HEMOGLOBIN A1b 0.9 %; HEMOGLOBIN Ao 84.2 %; HEMOGLOBIN F 1.3 %; HEMOGLOBIN LA1C 1.9 %; HEMOGLOBIN P3 3.9 %
== END ==
LOC: CLAB 08:19
PROVIDERS: ATTEND Family Medicine
DX: R73.01 Impaired fasting glucose (principal); E87.6 Hypokalemia
CPT/HCPCS: 36415; 83036; 84132

== ENCOUNTER 2017-05-17 09:29 | Inpatient (IN) | payer MEDICARE ==
[2017-05-17] VITALS (7 sets, daily range): BP systolic 156–210; BP diastolic 83–104; PULSE 88–103; RESP 18–24; TEMP 95.7–97.8; O2SAT 92–98
[~2017-05-17] VITALS: Ht 160 cm; Wt 86.1 kg
[~2017-05-17 09:29] MED LIST changes: -ALBUAER3 INH; -FLUT1INH7 INH; -LEVO500T8 PO; -METO50TA PO; -ZITH250T PO
[2017-05-17] MEDS ORDERED: FLUT1INH7 INH ×2 (09:50→16:34)
[2017-05-17] MEDS ORDERED: METO50TA PO (09:50)
[2017-05-17] MEDS ORDERED: ZITH250T PO (09:50)
--- NOTE | 2017-05-17 10:24 | PD ---
HPI Chief Complaint: Respiratory Symptoms Time Seen by Provider: 09:49 Travel History International Travel<30 days: No Contact w/Intl Traveler<30days: No Traveled to known affect area: No History of Present Illness HPI PATIENT C/O SOB, COUGH, ONGOING FOR AT LEAST A WEEK, PATIENT WAS GIVEN ZPAK, PREDNISONE AND SAW PCP YESTERDAY AFTER STATING IT HAD NOT GOTTEN BETTER, AND GIVEN LEVAQUIN....HOWEVER THROUGH ALL OF THIS PATIENT HAS BEEN HESITANT TO FULLY FINISH ANY OF HER REGIMEN PRESCRIBED...PATIENTS PCP IS [facility]. PULMONARY PCP: [facility] PMHX: COPD PFSH Past Medical History Hx Anticoagulant Therapy: No Anemia: Yes Arthritis: Yes Autoimmune Disease: No Cancer: No Cardiovascular Problems: Yes High Cholesterol: Yes Chemotherapy: No Chest Pain: Yes Congestive Heart Failure: Yes COPD: Yes Cerebrovascular Accident: No Diabetes: No Diminished Hearing: No Endocrine: Yes Gastrointestinal Disorders: Yes GERD: Yes Genitourinary: No Hypertension: Yes Immune Disorder: No Implanted Vascular Access Dvce: No Musculoskeletal: Yes ("DISC PROBLEMS" SPINAL STENOSIS) Neurologic: Yes Psychiatric: No Reproductive: No Respiratory: Yes Immunizations Current: Yes Ulcer: Yes (1979) Menopausal: Yes Tubal Ligation: Yes Past Surgical History Gynecologic Surgery: Yes (PARTIAL HYSTERECTOMY FOM TUBAL ) Hysterectomy: Yes (partial) Oral Surgery: Yes (TEETH PULLED) Other Surgery: Yes (BIOPSY LEFT BREAST, RESULTS NEGATIVE) Social History Alcohol Use: No Tobacco Use: No (QUIT SMOKING 1992 After 30 years) Substance Use: No Allergies-Medications (Allergen,Severity, Reaction): Coded Allergies: No Known Allergies (Unverified , 05/17/17) Reported Meds & Prescriptions Reported Meds & Active Scripts Active Hydralazine HCl 50 Mg Tablet 50 Mg PO TID Clonidine (Clonidine HCl) 0.1 Mg Tab 0.1 Mg PO Q8HR PRN Chlorthalidone 25 Mg Tab 25 Mg PO DAILY Potassium Chloride ER (Potassium Chloride) 20 Meq Tab 20 Meq PO DAILY Diltiazem ER 24 HR 180 Mg Belle 180 Mg PO DAILY Vitamin D-3 (Cholecalciferol) 1,000 Unit Cap 1,000 Units PO DAILY Ventolin Hfa 18 GM Inh (Albuterol Sulfate) 90 Mcg/Act Aer 2 Puff INH Q6H PRN Reported Breo Ellipta Inh (Fluticasone/Vilanterol) 200-25 Mcg/Act Inh 1 Puff INH DAILY Use daily at the same time. Proair Hfa 8.5 GM Inh (Albuterol Sulfate) 90 Mcg/Act Aer 2 Puff INH Q6H PRN 108 mcg/actuation Breo Ellipta Inh (Fluticasone/Vilanterol) 200-25 Mcg/Act Inh 1 Puff INH DAILY Use daily at the same time. Metoprolol Tartrate 50 Mg Tab 50 Mg PO BID Tylenol (Acetaminophen) 325 Mg Tab 500 Mg PO Q6H PRN Review of Systems Except as stated in HPI: all other systems reviewed are Neg General / Constitutional: No: Fever Eyes: No: Visual changes HENT: No: Headaches Cardiovascular: No: Chest Pain or Discomfort Respiratory: Positive: Cough, Shortness of Breath Gastrointestinal: No: Abdominal Pain Genitourinary: No: Dysuria Musculoskeletal: No: Pain Skin: No Rash Neurologic: No: Weakness Psychiatric: No: Depression Endocrine: No: Polydipsia Hematologic/Lymphatic: No: Easy Bruising Physical Exam Narrative GENERAL: SKIN: Warm and dry. HEAD: Atraumatic. Normocephalic. EYES: Pupils equal and round. No scleral icterus. No injection or drainage. ENT: No nasal bleeding or discharge. Mucous membranes pink and moist. NECK: Trachea midline. No JVD. CARDIOVASCULAR: Regular rate and rhythm. RESPIRATORY: No accessory muscle use. WHEEZING, GOOD TIDAL VOLUME, LEFT ?RONCHI? GASTROINTESTINAL: Abdomen soft, non-tender, nondistended. MUSCULOSKELETAL: Extremities without clubbing, cyanosis, or edema. No obvious deformities. NEUROLOGICAL: Awake and alert. No obvious cranial nerve deficits. Motor grossly within normal limits. Five out of 5 muscle strength in the arms and legs. Normal speech. PSYCHIATRIC: Appropriate mood and affect; insight and judgment normal. Data Data Last Documented VS Vital Signs Date Time Temp Pulse Resp B/P (MAP) Pulse Ox O2 Delivery O2 Flow Rate FiO2 05/17/17 10:21 98 Room Air 05/17/17 10:00 102 05/17/17 09:59 24 05/17/17 09:31 97.8 Orders Orders Electrocardiogram (05/17/17 09:59) Complete Blood Count With Diff (05/17/17 09:59) Comprehensive Metabolic Panel (05/17/17 09:59) Ckmb (Isoenzyme) Profile (05/17/17 09:59) Troponin I (05/17/17 09:59) B-Type Natriuretic Peptide (05/17/17 09:59) Prothrombin Time / Inr (Pt) (05/17/17 09:59) Act Partial Throm Time (Ptt) (05/17/17 09:59) Influenzae A/B Antigen (05/17/17 09:59) Chest, Single Ap (05/17/17 09:59) Iv Access Insert/Monitor (05/17/17 09:59) Ecg Monitoring (05/17/17 09:59) Oximetry (05/17/17 09:59) Ct Pulmonary Angiogram (05/17/17 10:01) CKMB (05/17/17 10:05) CKMB% (05/17/17 10:05) Iohexol 350 Inj (Omnipaque 350 Inj) (05/17/17 11:15) Admit Order (Ed Use Only) (05/17/17 13:25) Border Guard / Telemetry JOLIE.Q8H (05/17/17 13:25) Diet Npo (05/17/17 Lunch) Activity Bed Rest (05/17/17 13:25) Notify Dr: Other (05/17/17 13:25) Labs Laboratory Tests Test 05/17/17 10:05 White Blood Count 6.7 TH/MM3 Red Blood Count 5.28 MIL/MM3 Hemoglobin 13.4 GM/DL Hematocrit 40.3 % Mean Corpuscular Volume 76.3 FL Mean Corpuscular Hemoglobin 25.4 PG Mean Corpuscular Hemoglobin Concent 33.2 % Red Cell Distribution Width 16.6 % Platelet Count 226 TH/MM3 Mean Platelet Volume 8.3 FL Neutrophils (%) (Auto) 58.8 % Lymphocytes (%) (Auto) 26.8 % Monocytes (%) (Auto) 7.3 % Eosinophils (%) (Auto) 6.1 % Basophils (%) (Auto) 1.0 % Neutrophils # (Auto) 3.9 TH/MM3 Lymphocytes # (Auto) 1.8 TH/MM3 Monocytes # (Auto) 0.5 TH/MM3 Eosinophils # (Auto) 0.4 TH/MM3 Basophils # (Auto) 0.1 TH/MM3 CBC Comment DIFF FINAL Differential Comment Prothrombin Time 11.2 SEC Prothromb Time International Ratio 1.0 RATIO Activated Partial Thromboplast Time 27.6 SEC Blood Urea Nitrogen 8 MG/DL Creatinine 0.84 MG/DL Random Glucose 118 MG/DL Total Protein 8.9 GM/DL Albumin 3.9 GM/DL Calcium Level 9.5 MG/DL Alkaline Phosphatase 77 U/L Aspartate Amino Transf (AST/SGOT) 24 U/L Alanine Aminotransferase (ALT/SGPT) 25 U/L Total Bilirubin 0.5 MG/DL Sodium Level 132 MEQ/L Potassium Level 3.3 MEQ/L Chloride Level 97 MEQ/L Carbon Dioxide Level 27.0 MEQ/L Anion Gap 8 MEQ/L Estimat Glomerular Filtration Rate 80 ML/MIN Total Creatine Kinase 197 U/L Creatine Kinase MB 1.3 NG/ML Creatine Kinase MB % 0.7 % Troponin I LESS THAN 0.02 NG/ML B-Type Natriuretic Peptide 33 PG/ML MDM Medical Decision Making Medical Screen Exam Complete: Yes Emergency Medical Condition: Yes Medical Record Reviewed: Yes Interpretation(s) NSR 92, IRBBB, NO STEMI PATTERN Differential Diagnosis COPD V PE V PNA V PTX V PERICARDIAL EFFUSION Narrative Course during evaluation patient cxr did not show any ptx/pna, but cat scan ordered to ensure no pericardial effusion was present. pt did not have pericardial effusion but did show multiple pleural based masses (malignancy is implied , possibly mesothelioma)...this finding was communicated to patient and made her aware that these findings were not noted on cxr but only on cat scan, however there is need for further evaluation and care. however this could explain her "fail outpt therapy" scenarios Critical Care Narrative CRITICAL CARE NOTE: With evaluation of the patient, labs, EKG, receipt of radiologic studies, administration of medications, reevaluation the patient and discussion of the patient with the admitting physicians, the total critical care time was [30] minutes. Time to perform other separately billable procedures was not included in the critical care time. Diagnosis Primary Impression: Dyspnea Qualified Codes: R06.09 - Other forms of dyspnea Additional Impression: MULTIPLE LEFT PLEURAL MASSES Admitting Information Admitting Physician Requests: Admit Scripts Prednisone (Prednisone) 20 Mg Tab 40 MG PO DAILY, #3 TAB 0 Refills Prov: Mike Dillon MD R3 05/19/17 Hong Hawthorne MD May 17, 2017 10:24
[2017-05-17 10:28] LABS: AUTOMATED NEUTROPHIL # 3.9 TH/MM3 (1.8-7.7); BASOPHIL # 0.1 TH/MM3 (0-0.2); EOSINOPHIL # 0.4 TH/MM3 (0-0.4); EOSINOPHIL % 6.1 % (0.0-4.0); HEMATOCRIT 40.3 % (35.0-46.0); HEMO FLAGS DIFF FINAL; LYMPH % 26.8 % (9.0-44.0); LYMPHOCYTE # 1.8 TH/MM3 (1.0-4.8); MEAN CELL VOLUME 76.3 FL (80.0-100.0); MEAN CORPUSCULAR HEMOGLOBIN 25.4 PG (27.0-34.0); MEAN CORPUSCULAR HGB CONC 33.2 % (32.0-36.0); MONO % 7.3 % (0.0-8.0); NEUT % 58.8 % (16.0-70.0); PLATELET COUNT 226 TH/MM3 (150-450); RED BLOOD COUNT 5.28 MIL/MM3 (4.00-5.30); RED CELL DISTRIBUTION WIDTH 16.6 % (11.6-17.2); WHITE BLOOD COUNT 6.7 TH/MM3 (4.0-11.0)
[2017-05-17 10:34] LABS: APTT (PATIENT) 27.6 SEC (24.3-30.1); PROTHROMBIN TIME - PATIENT 11.2 SEC (9.8-11.6)
--- NOTE | 2017-05-17 10:38 | RADRPT ---
EXAM DATE/TIME: 05/17/2017 10:14 [facility] COMPARISON: CHEST PA & LAT, July 22, 2014, 9:47. CHEST PA & LAT, March 13, 2017, 8:09. INDICATIONS : Short of breath, wheezing MEDICAL HISTORY : Chronic obstructive pulmonary disease. enlarged heart, cystic fibrosis SURGICAL HISTORY : None. ENCOUNTER: Initial ACUITY: 1 day PAIN SCORE: 0/10 LOCATION: Bilateral chest FINDINGS: Coarse bilateral interstitial opacities are again noted, similar to prior studies. No definite acute pneumonia. No pleural effusion or pneumothorax. Heart size stable, within normal limits. CONCLUSION: Chronic findings without definite acute infiltrate. Jose A Mustafa MD on May 17, 2017 at 10:35 Board Certified Radiologist. This report was verified electronically.
[2017-05-17 10:48] LABS: ANION GAP 8 MEQ/L (5-15); AST (GOT) 24 U/L (15-37); BLOOD UREA NITROGEN 8 MG/DL (7-18); CHLORIDE 97 MEQ/L (98-107); GLOMERULAR FILTRATION RATE 80 ML/MIN (>89); POTASSIUM 3.3 MEQ/L (3.5-5.1); SODIUM (NA) 132 MEQ/L (136-145)
[2017-05-17 10:54] LABS: ALKALINE PHOSPHATASE 77 U/L (45-117); ALT (GPT) 25 U/L (10-53); CREATINE KINASE 197 U/L (26-192); TOTAL BILIRUBIN ADULT 0.5 MG/DL (0.2-1.0)
[2017-05-17 11:07] LABS: CKMB 1.3 NG/ML (0.5-3.6)
[2017-05-17] MEDS ORDERED: IOHEXOL 350 MG/ML 10 ML VIAL (for RAD DIAG) IVCONTRAST ONE (11:15)
--- NOTE | 2017-05-17 11:40 | RADRPT ---
EXAM DATE/TIME: 05/17/2017 11:14 [facility] COMPARISON: CT PULMONARY ANGIOGRAM, April 19, 2013, 21:14. INDICATIONS : Chest discomfort and short of breath , evaluate for pulmonary emoblism IV CONTRAST: 89 cc Omnipaque 350 (iohexol) IV RADIATION DOSE: 23.25 CTDIvol (mGy) MEDICAL HISTORY : Congestive hearrt failure. Hypertension. Chronic obstructive pulmonary disease. SURGICAL HISTORY : Tubal ligation. Hysterectomy. ENCOUNTER: Initial ACUITY: 1 week PAIN SCALE: 3/10 LOCATION: chest TECHNIQUE: Volumetric scanning of the chest was performed using a pulmonary embolism protocol MIP images were re constructed. Using automated exposure control and adjustment of the mA and/or kV according to patien t size, radiation dose was kept as low as reasonably achievable to obtain optimal diagnostic quality images. DICOM format image data is available electronically for review and comparison. Follow-up recommendations for detected pulmonary nodules are based at a minimum on nodule size and pa tient risk factors according to Fleischner Society Guidelines. FINDINGS: There is no pulmonary embolus. Large pleural-based mass is seen of the left upper lobe, no. The mass is very irregular but appr oximately 2.5 x 6.8 cm in greatest transaxial dimension and 6.2 cm craniocaudal. Several similar mass es abut the left diaphragmatic pleura, largest measuring 1.8 and 2.3 cm in size. A 2.2 x 4.5 cm left paramediastinal mass is seen on series 4 image 47. There is a 2.2 x 3.9 cm subcarinal lymph node. Chr onic interstitial changes with subpleural fibrosis again noted of both lungs. Heart size within normal limits. Coronary artery calcification noted, most conspicuous proximall y of the left main. Upper abdomen only partly included on this study. Numerous small to medium stones are seen in th e gallbladder. CONCLUSION: 1. No pulmonary embolus. 2. Multiple left-sided pleural-based masses, malignant until proven otherwise. Metastatic disease and mesothelioma would be in the differential. 3. Subcarinal lymphadenopathy of concern for metastatic disease. 4. Chronic pulmonary fibrosis again noted. Jose A Mustafa MD on May 17, 2017 at 11:33 Board Certified Radiologist. This report was verified electronically.
--- NOTE | 2017-05-17 14:09 | HHI.HP ---
[facility] Service Family Medicine Primary Care Physician Avila Becerra MD Admission Diagnosis LEFT PLEURAL BASED MASSES/COPD EXACERBATION Diagnoses: International Travel<30 Days: No Contact w/Intl Traveler<30days: No Known Affected Area: No History of Present Illness 77 year old female with a history of COPD and pulmonary fibrosis, followed by Dr. Loco (scagliola mechanic), presents with chronic left sided chest pain and increasing shortness of breath. Symptoms started 6 months ago but have been worsening over the past week. She saw Dr. Loco for the worsening shortness of breath and was put on Azithromycin 5 days course (last dose today) and prednisone. The chest pain is located down the entire left side of her thorax and is associated with breathing. She reports increased wheezing and coughing up phlegm that ranges from white to yellow. She has no hemoptysis. She becomes short of breath just walking across the house. She feels generally fatigued. She has no fevers. She reports weight loss but chart review reveals no weight loss. She quit smoking 40 years ago but smoked a PPD before then. She had an ECHO done in 2010 that showed increased right ventricular pressure and mild LVH but normal ejection fraction. She reports no recent travel. She reports no sick contacts. She is accompanied by her and daughter. The etiology of her pulmonary fibrosis is not clear from the records, will continued to investigate. She reports no history of rheumatoid arthritis, lupus, or sarcoidosis. Review of Systems Constitutional: COMPLAINS OF: Fatigue, Weight loss, Night Sweats, DENIES: Fever , Weight gain, Chills Endocrine: COMPLAINS OF: Heat/cold intolerance, Polyuria, DENIES: Polydipsia, Polyphagia Eyes: DENIES: Blurred vision, Diplopia, Eye pain, Vision loss, Double Vision Ears, nose, mouth, throat: COMPLAINS OF: Nasal discharge, Running Nose, DENIES : Throat pain, Epistaxis Respiratory: COMPLAINS OF: Cough, Wheezing, Sputum production, Shortness of breath, DENIES: Snoring, Hemoptysis Cardiovascular: COMPLAINS OF: Chest pain, Dyspnea on Exertion, Orthopnea, DENIES: Syncope, Lower Extremity Edema Gastrointestinal: COMPLAINS OF: Constipation, DENIES: Black stools, Bloody stools, Diarrhea, Nausea, Vomiting, Difficulty Swallowing Genitourinary: COMPLAINS OF: Urinary frequency, Urgency, Dysuria, Nocturia, DENIES: Abnormal vaginal bleeding, Urinary incontinence Hematologic/lymphatic: DENIES: Lymphadenopathy Immunologic/allergic: DENIES: Urticaria Neurologic: COMPLAINS OF: Headache, DENIES: Seizures Psychiatric: COMPLAINS OF: Anxiety, DENIES: Mood changes, Depression Past Family Social History Past Medical History COPD Pulmonary fibrosis: unknown etiology Hypertension Bilateral cataracts Anemia Low B12 Medical non-compliance Dr. Loco : scagliola mechanic Dr. Avila Becerra: PCP Dr. Marcelino (Ophthomologist) Other studies: ECHO 11/04/2010 55-60% EF, mild LVH, increased pressure in R ventricle and pulm arteries ECHO 11/2015 ejection fraction of 55-60% -Health Maintenance: Pt states Last Pap smear in 2007. As we do not have one on file would like to complete one here, and if normal does not need anymore. Pt continues to decline breast, pelvic exam, and rectal exam. Pt has never had colonoscopy, states her sister had a bad experience with perforation of bowel and continues to decline. Discussed CT Colonogram as alternative for colon cancer screening. Pt has not completed, states she "needs help with her insurance" before she can get these completed. Urged her to get these done. The patient's last tetanus shot was in September 2004. Declines Flu shot. Declines Pneumovax. Past Surgical History Tubal with removal of right tube and ovary 1960s left breast biopsy for benign breast condition many years ago Reported Medications Reported Meds & Active Scripts Active Hydralazine HCl 50 Mg Tablet 50 Mg PO TID Clonidine (Clonidine HCl) 0.1 Mg Tab 0.1 Mg PO Q8HR PRN Chlorthalidone 25 Mg Tab 25 Mg PO DAILY Potassium Chloride ER (Potassium Chloride) 20 Meq Tab 20 Meq PO DAILY Diltiazem ER 24 HR 180 Mg Belle 180 Mg PO DAILY Vitamin D-3 (Cholecalciferol) 1,000 Unit Cap 1,000 Units PO DAILY Ventolin Hfa 18 GM Inh (Albuterol Sulfate) 90 Mcg/Act Aer 2 Puff INH Q6H PRN Reported Breo Ellipta Inh (Fluticasone/Vilanterol) 200-25 Mcg/Act Inh 1 Puff INH DAILY Use daily at the same time. Zithromax (Azithromycin) 250 Mg Tab 250 Mg PO DIRECTED Take 2 tabs (500 mg) on day 1 then 1 tab daily x 4 days. Metoprolol Tartrate 50 Mg Tab 50 Mg PO BID Tylenol (Acetaminophen) 325 Mg Tab 500 Mg PO Q6H PRN Allergies: Coded Allergies: No Known Allergies (Unverified , 05/17/17) Active Ordered Medications Inpatient Medications Acetaminophen (Tylenol) 650 mg Q4H PRN PO Temp > 100.4; Start 05/17/17 at 15: 30; Status UNV Albuterol Sulfate (Albuterol Neb) 2.5 mg Q2HR NEB PRN INH SHORTNESS OF BREATH; Start 05/17/17 at 15:30; Status UNV Albuterol/ Ipratropium (Duoneb Neb) 1 ampule Q4HR NEB INH ; Start 05/17/17 at 16:00; Status UNV Bisacodyl (Dulcolax Supp) 10 mg DAILY PRN RECTAL SEVERE CONSITIPATION; Start 05/17/17 at 15:30; Status UNV Clonidine (Catapres) 0.1 mg Q8HR PRN PO SBP>160, DBP>90; Start 05/17/17 at 14: 45; Status UNV Diltiazem HCl (Cardizem Cd) 180 mg DAILY PO ; Start 05/18/17 at 09:00; Status UNV Enoxaparin Sodium (Lovenox Inj) 40 mg Q24H SQ ; Start 05/17/17 at 15:30; Status UNV Fluticasone/ Vilanterol (Breo Ellipta 200-25 Inh) 1 puff DAILY INH ; Start at 09:00; Status UNV Hydralazine HCl (Apresoline) 50 mg TID PO ; Start 05/17/17 at 18:00; Status UNV Lactulose (Lactulose Liq) 30 ml DAILY PRN PO SEVERE CONSITIPATION; Start 05/17 at 15:30; Status UNV Magnesium Hydroxide (Milk Of Magnesia Liq) 30 ml Q12H PRN PO Mild constipation ; Start 05/17/17 at 15:30; Status UNV Metoprolol Tartrate (Lopressor) 50 mg BID PO ; Start 05/17/17 at 21:00; Status UNV Naloxone HCl (Narcan Inj) 0.4 mg UNSCH PRN IV PUSH SEE LABEL COMMENTS; Start 05/17/17 at 15:30; Status UNV Non-Formulary Medication 1,000 units DAILY PO ; Start 05/18/17 at 09:00; Status UNV Ondansetron HCl (Zofran Inj) 4 mg Q6H PRN IV PUSH NAUSEA; Start 05/17/17 at 15 :30; Status UNV Potassium Chloride (KCl) 20 meq DAILY PO ; Start 05/18/17 at 09:00; Status UNV Prednisone (Deltasone) 40 mg DAILY PO ; Start 05/18/17 at 09:00; Status UNV Senna/Docusate Sodium (Bre-Colace) 1 tab BID PO ; Start 05/17/17 at 21:00; Status UNV Sennosides (Senokot) 17.2 mg Q12H PRN PO Moderate constipation; Start at 15:30; Status UNV Sodium Chloride (NS Flush) 2 ml BID IV FLUSH ; Start 05/17/17 at 21:00; Status UNV Family History Stroke, CVD, CHF, cataracts, glaucoma. No cancers, no diabetes. Social History Smoking: Quit smoking 30 years ago, was PPD, started very young Alcohol: Quit 30 years ago Drug use: none Physical Exam Vital Signs Vital Signs Date Time Temp Pulse Resp B/P (MAP) Pulse Ox O2 Delivery O2 Flow Rate FiO2 05/17/17 10:21 98 Room Air 05/17/17 10:00 102 05/17/17 09:59 102 24 182/91 (121) 98 Room Air 05/17/17 09:52 99 Room Air 05/17/17 09:31 97.8 103 20 210/104 (139) 94 Room Air Physical Exam General: Sitting up in bed, no acute distress, normal O2 saturation on room air , pleasant demeanor Skin: No rashes or lesions HEENT: Normocephalic, no conjunctivitis, no nasal discharge, no oral ulcers, pharynx normal, dentures in place. Neck: No lymphadenopathy, no thyromegaly. CV: RRR, no murmurs, rubs, or gallops. Pulses symmetrical and intact. Normal capillary refill. Hypertensive. Lungs: Significant rales present bilaterally. On room air, no respiratory distress. Productive cough during exam. Pain in left chest with deep inspiration. Abdomen: Soft, nontender, non-distended. No abdominal masses felt. Ext: No edema, fair range of motion. Neuro: Awake, alert. CN intact. Normal strength and sensation peripherally. Laboratory Laboratory Tests Test 05/17/17 10:05 White Blood Count 6.7 Red Blood Count 5.28 Hemoglobin 13.4 Hematocrit 40.3 Mean Corpuscular Volume 76.3 Mean Corpuscular Hemoglobin 25.4 Mean Corpuscular Hemoglobin Concent 33.2 Red Cell Distribution Width 16.6 Platelet Count 226 Mean Platelet Volume 8.3 Neutrophils (%) (Auto) 58.8 Lymphocytes (%) (Auto) 26.8 Monocytes (%) (Auto) 7.3 Eosinophils (%) (Auto) 6.1 Basophils (%) (Auto) 1.0 Neutrophils # (Auto) 3.9 Lymphocytes # (Auto) 1.8 Monocytes # (Auto) 0.5 Eosinophils # (Auto) 0.4 Basophils # (Auto) 0.1 CBC Comment DIFF FINAL Differential Comment Prothrombin Time 11.2 Prothromb Time International Ratio 1.0 Activated Partial Thromboplast Time 27.6 Blood Urea Nitrogen 8 Creatinine 0.84 Random Glucose 118 Total Protein 8.9 Albumin 3.9 Calcium Level 9.5 Alkaline Phosphatase 77 Aspartate Amino Transf (AST/SGOT) 24 Alanine Aminotransferase (ALT/SGPT) 25 Total Bilirubin 0.5 Sodium Level 132 Potassium Level 3.3 Chloride Level 97 Carbon Dioxide Level 27.0 Anion Gap 8 Estimat Glomerular Filtration Rate 80 Total Creatine Kinase 197 Creatine Kinase MB 1.3 Creatine Kinase MB % 0.7 Troponin I LESS THAN 0.02 B-Type Natriuretic Peptide 33 Date/Time Source Procedure Growth Status 05/17/17 10:05 Nasal Washing Influenza Types A,B Antigen (KARLA) - Final NEGATIVE FOR FLU A AND B ANTIGEN.... Complete Result Diagram: 05/17/17 1005 05/17/17 1005 Imaging Last [address] Angiography 05/17/17 1001 Signed Impressions: Service Date/Time: Wednesday, May 17, 2017 11:14 - CONCLUSION: 1. No pulmonary embolus. 2. Multiple left-sided pleural-based masses, malignant until proven otherwise. Metastatic disease and mesothelioma would be in the differential. 3. Subcarinal lymphadenopathy of concern for metastatic disease. 4. Chronic pulmonary fibrosis again noted. Jose A Mustafa MD Chest X-Ray 05/17/17 0967 Signed Impressions: Service Date/Time: Wednesday, May 17, 2017 10:14 - CONCLUSION: Chronic findings without definite acute infiltrate. Jose A Mustafa MD Septic Shock Reassessment Heart: Regular rate and rhythm Lungs: Course, Other (Rales) Skin: Warm Capillary Refill: <2 seconds Caprini VTE Risk Assessment Caprini VTE Risk Assessment: Mod/High Risk (score >= 2) Caprini Risk Assessment Model Point Value = 1 Point Value = 2 Point Value = 3 Point Value = 5 Age 41-60 Minor surgery BMI > 25 kg/m2 Swollen legs Varicose veins or History of unexplained or recurrent spontaneous Oral contraceptives or hormone replacement Sepsis (< 1 month) Serious lung disease, including pneumonia (< 1 month) Abnormal pulmonary function Acute myocardial infarction Congestive heart failure (< 1 month) History of inflammatory bowel disease Medical patient at bed rest Age 61-74 Arthroscopic surgery Major open surgery (> 45 min) Laparoscopic surgery (> 45 min) Malignancy Confined to bed (> 72 hours) Immobilizing plaster cast Central venous access Age >= 75 History of VTE Family history of VTE Factor V Leiden Prothrombin [id number] Lupus anticoagulant Anticardiolipin antibodies Elevated serum homocysteine Heparin-induced thrombocytopenia Other congenital or acquired thrombophilia Stroke (< 1 month) Elective arthroplasty Hip, pelvis, or leg fracture Acute spinal cord injury (< 1 month) Prophylaxis Regimen Total Risk Factor Score Risk Level Prophylaxis Regimen 0-1 Low Early ambulation 2 Moderate Order ONE of the following: *Sequential Compression Device (SCD) *Heparin 5000 units SQ BID 3-4 Higher Order ONE of the following medications: *Heparin 5000 units SQ TID *Enoxaparin/Lovenox 40 mg SQ daily (WT < 150 kg, CrCl > 30 mL/min) *Enoxaparin/Lovenox 30 mg SQ daily (WT < 150 kg, CrCl > 10-29 mL/min) *Enoxaparin/Lovenox 30 mg SQ BID (WT < 150 kg, CrCl > 30 mL/min) AND/OR *Sequential Compression Device (SCD) 5 or more Highest Order ONE of the following medications: *Heparin 5000 units SQ TID (Preferred with Epidurals) *Enoxaparin/Lovenox 40 mg SQ daily (WT < 150 kg, CrCl > 30 mL/min) *Enoxaparin/Lovenox 30 mg SQ daily (WT < 150 kg, CrCl > 10-29 mL/min) *Enoxaparin/Lovenox 30 mg SQ BID (WT < 150 kg, CrCl > 30 mL/min) AND *Sequential Compression Device (SCD) Assessment and Plan Assessment and Plan 77 year old female with a history of emphysema/COPD and pulmonary fibrosis presents with shortness of breath. CTA showing multiple left-sided pleural based masses and subcarinal lymphadenopathy suspicious for malignant process. Code Status FULL CODE Discussed Condition With Will discuss with Dr. Templeton Problem List: (1) Shortness of breath ICD Codes: R06.02 - Shortness of breath Status: Acute Plan: Presenting with shortness of breath and left sided chest pain that is chronic. PE ruled out with CTA. Has history of COPD. Last ECHO 2010 showed PA peak pressure of 36 mmHg, EF of 55-60%, mild LVH, increased right ventricular systolic pressure. Has history of pulmonary fibrosis and sees Dr. Loco. Unclear etiology of pulmonary fibrosis, possibly idiopathic. BNP is normal. Initial Troponin and EKG is normal. Chest x-ray normal. CTA showing lung masses and subcarinal lymphadenopathy. - Trend Troponin levels and EKG's. - See plan for lung masses and pulmonary fibrosis, COPD. (2) Mass of left lung ICD Codes: R91.8 - Other nonspecific abnormal finding of lung field Status: Acute Plan: CTA for PE revealed multiple left-sided pleural based masses, malignant until proven otherwise. Also showed subcarinal lymphadenopathy concerning for possible metastatic disease. History of smoking, quit 30 years ago. Differential includes infection, inflammatory, malignancy, granulomata scars, fungi, mycobacteria, rheumatoid arthritis, amyloidosis, sarcoidosis, granulomatosis polyangiitis, abscesses. - Consult medical oncology. - Consult pulmonology - Consult IR for CT guided biopsy - Defer further imaging/workup to above, may need further imaging and possible biopsy. (3) Emphysema/COPD ICD Codes: J43.9 - Emphysema, unspecified Status: Chronic Plan: History of COPD/emphysema, follows with Dr. Loco. Possibly having a COPD exacerbation. Quit smoking 30 yrs ago. - Fluticasone/Vilanterol 200-25 1 puff daily continued from home - DuoNeb q4hrs - Albuterol PRN for SOB or wheezing - Continue prednisone 40 mg daily - Completed a 5 day course of Azithromycin - Consult pulmonology - Influenza and pneumococcal vaccine if not already done (4) pulmonary fibrosis Status: Chronic Plan: Unclear etiology, possibly idiopathic. - Consult her scagliola mechanic, Dr. Loco - Attempt to find more records, communicate with scagliola mechanic (5) Hypertension ICD Codes: I10 - Hypertension Status: Chronic Plan: Chronic hypertension, questionable compliance with blood pressure medicines at home. - Metoprolol 50 mg bid - Diltiazem 180 mg daily. - Hydralazine 50 mg tid - Chlorthalidone 25 mg daily - Clonidine 0.1 mg PRN (6) No contraindication to deep vein thrombosis (DVT) prophylaxis ICD Codes: Z78.9 - Other specified health status Status: Acute Plan: High risk of DVT/PE if malignant process is occurring - Lovenox 40 mg a day (7) Nutrition, metabolism, and development symptoms ICD Codes: R63.8 - Other symptoms and signs concerning food and fluid intake Status: Acute Plan: PO fluids Stable electrolytes Normal kidney function for age Hyponatremic/hypochloremic/hypokalemic mild Takes chlorthalidone for BP Encourage good PO intake Physician Certification 2 Midnight Certification Type: Admission for Inpatient Services Order for Inpatient Services The services are ordered in accordance with Medicare regulations or non- Medicare payer requirements, as applicable. In the case of services not specified as inpatient-only, they are appropriately provided as inpatient services in accordance with the 2-midnight benchmark. Estimated LOS (days): 3 days is the estimated time the patient will need to remain in the hospital, assuming treatment plan goals are met and no additional complications. Post-Hospital Plan: Not yet determined Mike Dillon MD R3 May 17, 2017 14:09
[2017-05-17] MEDS ORDERED: cloNIDine HCL 0.1 MG TAB PO PRN (14:45)
[2017-05-17] MEDS ORDERED: BISACODYL 10 MG SUPP RECTAL PRN (15:30)
[2017-05-17] MEDS ORDERED: ONDANSETRON HCL 4 MG/2 ML VIAL IV PUSH PRN (15:30)
[2017-05-17] MEDS ORDERED: LACTULOSE SYRUP 20 GM/30 ML CUP PO PRN (15:30)
[2017-05-17] MEDS ORDERED: RESP: ALBUTEROL 2.5 MG/3 ML NEB (PRN) INH (15:30)
[2017-05-17] MEDS ORDERED: MAGNESIUM HYDROXIDE SUSP 30 ML CUP PO PRN (15:30)
[2017-05-17] MEDS ORDERED: SENNOSIDES 8.6 MG TAB PO PRN (15:30)
[2017-05-17] MEDS ORDERED: NALOXONE HCL 0.4 MG/ML AMP IV PUSH PRN (15:30)
[2017-05-17] MEDS ORDERED: SODIUM CHLORIDE 0.9% FLUSH 10 ML FLUSH IV FLUSH PRN (15:30)
[2017-05-17] MEDS: hydrALAZINE HCL 50 MG TAB PO SCH (16:16)
[2017-05-17] MEDS: ENOXAPARIN SODIUM 40 MG/0.4 ML SYRINGE SQ SCH (16:17)
[2017-05-17] MEDS: RESP: ALBUTEROL 2.5 MG/IPRATROPIUM 0.5 MG NEB (SCH) INH ×2 (16:25→21:12)
[2017-05-17] MEDS ORDERED: ALBUAER3 INH (16:34)
[2017-05-17] MEDS ORDERED: LEVO500T8 PO (16:34)
[2017-05-17 19:16] LABS: BASOPHIL # 0.1 TH/MM3 (0-0.2); BASOPHIL % 1.1 % (0.0-2.0); EOSINOPHIL # 0.4 TH/MM3 (0-0.4); EOSINOPHIL % 5.2 % (0.0-4.0); HEMATOCRIT 39.1 % (35.0-46.0); HEMO FLAGS DIFF FINAL; LYMPH % 29.2 % (9.0-44.0); LYMPHOCYTE # 2.1 TH/MM3 (1.0-4.8); MEAN CELL VOLUME 75.9 FL (80.0-100.0); MEAN CORPUSCULAR HEMOGLOBIN 24.9 PG (27.0-34.0); MEAN CORPUSCULAR HGB CONC 32.8 % (32.0-36.0); NEUT % 56.5 % (16.0-70.0); PLATELET COUNT 247 TH/MM3 (150-450); RED BLOOD COUNT 5.16 MIL/MM3 (4.00-5.30); RED CELL DISTRIBUTION WIDTH 16.6 % (11.6-17.2); WHITE BLOOD COUNT 7.1 TH/MM3 (4.0-11.0)
[2017-05-17 19:26] LABS: APTT (PATIENT) 31.7 SEC (24.3-30.1); PROTHROMBIN TIME - PATIENT 11.2 SEC (9.8-11.6)
[2017-05-17] MEDS: DOCUSATE SODIUM 50 MG/SENNA 8.6 MG TAB PO SCH (20:23)
[2017-05-17] MEDS: METOPROLOL TARTRATE 50 MG TAB PO SCH (20:23)
[2017-05-17] MEDS: SODIUM CHLORIDE 0.9% FLUSH 10 ML FLUSH IV FLUSH SCH (20:31)
--- NOTE | 2017-05-17 21:05 | EKG ---
Date Performed: 05/17/2017 Time Performed: 10:15:27 PTAGE: 77 years EKG: Sinus rhythm NORMAL ECG PREVIOUS TRACING : 03/13/2017 12.48 Compared to prior tracing no significant change DOCTOR: Pushpa Mcqueen Interpretating Date/Time 05/17/2017 21:04:19
[2017-05-17 22:11] LABS: BLOOD, URINE NEG (NEG); COMMENT (UR) CULT NOT INDICATED; CULTURE IF INDICATED CULT NOT INDICATED; GLUCOSE,URINE NEG (NEG); KETONE, URINE NEG (NEG); NITRITE,URINE NEG (NEG); SQUAMOUS EPITHELIAL CELL URINE 1 /hpf (0-5); URINE COLOR LIGHT-YELLOW (YELLW/STRAW)
--- NOTE | 2017-05-17 22:49 | MB ---
cc: GALINDO VARGAS DATE OF CONSULTATION 05/17/[address] Mike Dillon REASON FOR CONSULTATION Shortness of breath and lung masses. HISTORY OF PRESENT ILLNESS Ms. Neal is a pleasant 77-year-old -[place] female with history of pulmonary fibrosis, pulmonary hypertension. The patient has not been doing well over the last week to 10 days. Earlier she was having intermittent chest pain. She was advised to see full stack web developer. She was seen in the office last week. She was complaining of cough and congestion, worsening shortness of breath. She was started on Zithromax. Yesterday she came back because she was not feeling well and more short of breath and had wheezing. She was started on IV steroids and Levaquin with the advice to come to the hospital if she does not get better. She did not feel any better and decided to come to the emergency room. She had a workup done. She had a CTA of the chest done. It does not show any pulmonary embolism. It shows multiple left-sided pleural base masses with subcarinal lymphadenopathy concerning for malignancy. She has chronic pulmonary fibrosis. Her CBC showed WBC count 6.7, hemoglobin 13.4, hematocrit 40.3, MCV 76, platelet count 226, sodium 132, potassium 3.3, chloride 97, CO2 27, BUN 8, creatinine 0.84. PAST MEDICAL HISTORY Significant history of pulmonary fibrosis, pulmonary hypertension, anemia. MEDICATIONS She is currently taking 1. Diltiazem 180 milligrams a day. 2. Breo Ellipta 200/25 once a day. 3. Potassium supplement. 4. Chlorthalidone 25 milligrams a day. 5. Vitamin D3 1,000 units a day. 6. Prednisone 40 milligrams a day. 7. Metoprolol 50 milligrams twice a day. 8. Lovenox 40 milligrams a day. 9. Hydralazine 50 milligrams three times a day. 10. Albuterol, Atrovent nebulizer treatment. ALLERGIES NO KNOWN DRUG ALLERGIES. SOCIAL HISTORY She is . She has no history of smoking, alcohol abuse. FAMILY HISTORY Noncontributory. REVIEW OF SYSTEMS She is normally up around and ative. Has been having increasing shortness of breath. No DVT or pulmonary embolism. No prior malignancy. No seizure, stroke or epilepsy. PHYSICAL EXAMINATION GENERAL: Elderly female, mild short of breath. VITAL SIGNS: Blood pressure 156/83, heart rate 76. Respiration 18, temperature 95.7. HEENT: On examination pupils are equal and reactive to light. Oral mucosa, nasal mucosa normal. NECK: Supple. JVP not raised. CHEST: Equal bilaterally. She has bilateral inspiratory rales. CARDIOVASCULAR: S1-S2 are normal. ABDOMEN: Soft, nontender, nondistended. Bowel sounds present. EXTREMITIES: No edema. IMPRESSION 1. Multiple lung masses pleural-based, need to rule out malignancy. Also possibility of sarcoidosis. She also has subcarinal lymphadenopathy. 2. Extensive pulmonary fibrosis. 3. Hypertension. 4. Pulmonary hypertension. I discussed with the patient, her daughter and at the bedside. She will need CT-guided lung biopsy. I explained the procedure and the complications including complication of anesthesia, pneumothorax requiring chest tube, bleeding complication, injury to the blood vessels, lungs, nerves, arrhythmia, hypoxia which she understood well and wanted to proceed. She will be scheduled for CT-guided lung biopsy. Will continue her aerosol treatment, p.o. steroids. She is currently stable on room air. I will also check her PFT and room air blood gas when she gets better. Further treatment will depend on the course in the hospital. Thank you Dr. Mike Dillon for this consultation. MD CLAUDY Lau/VIANCA /6:33 PM /10:16 PM NICOLASA
--- NOTE | 2017-05-17 23:30 | MB ---
cc: ISABELL STILL MD DATE OF CONSULTATION 05/17/17 REASON FOR CONSULTATION Pulmonary mass. HISTORY OF PRESENT ILLNESS Ms. Neal is a 77-year-old lady with a history of COPD, pulmonary fibrosis who follows with Dr. Loco in pulmonology clinic. She presented with left-sided chest pain and worsening shortness of breath that has been present for the past several months. The pain and shortness of breath worsened acutely over the past 1 week prompting her to go for further evaluation. She had a CT angiogram performed which showed a large pleural base mass seen in the left upper lobe. The mass is very regular but approximately 2.5 x 6.8 cm in greatest transaxial dimension and 6.2 cm cranial caudal. Several similar masses with the left diaphragmatic pleura largest measuring 1.8 and 2.3 cm in size. A 2.2 x 4.5 cm mediastinal mass is seen. There is a 2.2 x 3.9 cm subcarinal lymph node. Chronic interstitial changes with subpleural fibrosis again noted in both of the lungs. Laboratory studies from admission with normal coags. Total bili of 0.5. CBC with white blood cell count of 6.7, hemoglobin 13.4, MCV is 76.3 and a platelet count of 226,000. PAST MEDICAL HISTORY 1. COPD. 2. Pulmonary fibrosis. 3. Hypertension. PAST SURGICAL HISTORY 1. Tubal with removal of right fallopian tube and ovary in the 1960s. FAMILY HISTORY No family history of malignancy. Strong family history of coronary artery disease. SOCIAL HISTORY The patient lives in the [place] area. She has a good support system with her extended family. She has a past history of heavy smoking, however, she quit approximately 30 years ago. She also reports a past history of alcohol abuse and quit 30 years ago. ALLERGIES She has no known drug allergies. REVIEW OF SYSTEMS On review of systems she reports chronic left-sided chest pain and shortness of breath. All of her other review of systems are negative. PHYSICAL EXAMINATION GENERAL: Well-developed, well-nourished lady in no distress. EYES: With no scleral icterus. EAR, NOSE, THROAT: With clear oropharynx. CARDIOVASCULAR: Regular rate and rhythm with no murmurs. RESPIRATORY: Clear to auscultation bilaterally. ' GI: Soft, nontender, nondistended with bowel sounds present. SKIN: With no rashes or bruising. NEURO: No focal deficits. PSYCH: Appropriate mood and affect. HEME: Lymph, with no palpable lymph nodes in the cervical, supraclavicular areas. NECK: Neck is supple. ASSESSMENT/PLAN 1. Lung masses, suspicious for malignancy, status post consult by the pulmonology team with plan for bronchoscopy while inpatient. Will follow up results of pathology. Thank you for this consult. Isabell Still MD GROVER/VIANCA /7:11 PM /11:17 PM MTDD
[2017-05-18] VITALS (12 sets, daily range): BP systolic 111–146; BP diastolic 63–89; PULSE 75–99; RESP 16–24; TEMP 96.1–97.7; O2SAT 92–97
[2017-05-18] MEDS: RESP: ALBUTEROL 2.5 MG/IPRATROPIUM 0.5 MG NEB (SCH) INH ×6 (00:39→21:14)
[2017-05-18 01:40] LABS: BASOPHIL # 0.1 TH/MM3 (0-0.2); EOSINOPHIL # 0.4 TH/MM3 (0-0.4); EOSINOPHIL % 4.9 % (0.0-4.0); HEMO FLAGS DIFF FINAL; LYMPH % 33.5 % (9.0-44.0); LYMPHOCYTE # 2.5 TH/MM3 (1.0-4.8); MEAN CELL VOLUME 75.9 FL (80.0-100.0); MEAN CORPUSCULAR HEMOGLOBIN 24.9 PG (27.0-34.0); MEAN CORPUSCULAR HGB CONC 32.8 % (32.0-36.0); MONO % 7.7 % (0.0-8.0); NEUT % 52.9 % (16.0-70.0); PLATELET COUNT 227 TH/MM3 (150-450); RED BLOOD COUNT 5.14 MIL/MM3 (4.00-5.30); RED CELL DISTRIBUTION WIDTH 16.8 % (11.6-17.2); WHITE BLOOD COUNT 7.6 TH/MM3 (4.0-11.0)
[2017-05-18 02:01] LABS: ALT (GPT) 25 U/L (10-53); ANION GAP 8 MEQ/L (5-15); AST (GOT) 20 U/L (15-37); BLOOD UREA NITROGEN 6 MG/DL (7-18); CHLORIDE 96 MEQ/L (98-107); GLOMERULAR FILTRATION RATE 97 ML/MIN (>89); POTASSIUM 3.1 MEQ/L (3.5-5.1); SODIUM (NA) 133 MEQ/L (136-145)
[2017-05-18 02:05] LABS: ALKALINE PHOSPHATASE 74 U/L (45-117); TOTAL BILIRUBIN ADULT 0.6 MG/DL (0.2-1.0)
[2017-05-18] MEDS ORDERED: POTASSIUM CHLORIDE 10 MEQ CONTROLLED RELEASE TAB PO ONE (08:00)
[2017-05-18] MEDS: DOCUSATE SODIUM 50 MG/SENNA 8.6 MG TAB PO SCH ×2 (09:00→21:19)
[2017-05-18] MEDS ORDERED: DILTIAZEM-CD 180 MG CAP ER PO SCH (09:00)
[2017-05-18] MEDS ORDERED: PILL SPLITTER OTHER PRN (09:00)
[2017-05-18] MEDS: POTASSIUM CHLORIDE 20 MEQ CONTROLLED RELEASE TAB PO SCH (09:47)
[2017-05-18] MEDS: hydrALAZINE HCL 50 MG TAB PO SCH ×3 (09:49→18:00)
[2017-05-18] MEDS: CHOLECALCIFEROL (VIT D3) 1000 UNIT TAB PO SCH (09:49)
[2017-05-18] MEDS: predniSONE 20 MG TAB PO SCH (09:49)
[2017-05-18] MEDS: METOPROLOL TARTRATE 50 MG TAB PO SCH ×2 (09:49→21:20)
[2017-05-18] MEDS: CHLORTHALIDONE 50 MG TAB PO SCH (09:49)
[2017-05-18] MEDS: SODIUM CHLORIDE 0.9% FLUSH 10 ML FLUSH IV FLUSH SCH ×2 (09:58→21:18)
[2017-05-18] MEDS: FLUTICASONE 200 MCG/VILANTEROL 25 MCG INHALER INH SCH (10:17)
[2017-05-18] MEDS ORDERED: TEMAZEPAM 15 MG CAP PO PRN (11:00)
--- NOTE | 2017-05-18 11:41 | HHI.FPPN ---
Subjective Remarks Breathing much better this morning. No more wheezing overnight. Improved with breathing treatments and steroids. Left sided chest pain is gone. No abdominal pain, nausea, vomiting, diarrhea. No calf tenderness. Feels much better this morning. She is NPO and waiting for CT biopsy of lung masses. Discussed with two daughters and at bedside. (Mike Dillon MD R3) Objective Vitals Vital Signs Date Time Temp Pulse Resp B/P (MAP) Pulse Ox O2 Delivery O2 Flow Rate FiO2 05/18/17 08:36 96 05/18/17 08:00 97.1 96 18 144/89 (107) 92 05/18/17 07:24 93 21 05/18/17 04:00 97.6 80 20 119/81 (94) 95 05/18/17 00:00 97.7 84 18 146/84 (104) 96 05/17/17 19:35 96.8 88 20 163/94 (117) 92 05/17/17 19:29 88 05/17/17 16:26 98 21 05/17/17 16:25 95.7 88 18 156/83 (107) 96 05/17/17 15:47 I/O 05/17/17 05/17/17 05/17/17 05/18/17 05/18/17 05/18/17 07:00 15:00 23:00 07:00 15:00 23:00 Output Total 600 ml Balance -600 ml Output Urine Total 600 ml (Mike Dillon MD R3) Result Diagram: 05/18/17 0118 05/18/17 0118 Imaging Last [address] Angiography 05/17/17 1001 Signed Impressions: Service Date/Time: Wednesday, May 17, 2017 11:14 - CONCLUSION: 1. No pulmonary embolus. 2. Multiple left-sided pleural-based masses, malignant until proven otherwise. Metastatic disease and mesothelioma would be in the differential. 3. Subcarinal lymphadenopathy of concern for metastatic disease. 4. Chronic pulmonary fibrosis again noted. Jose A Mustafa MD Chest X-Ray 05/17/17 0959 Signed Impressions: Service Date/Time: Wednesday, May 17, 2017 10:14 - CONCLUSION: Chronic findings without definite acute infiltrate. Jose A Mustafa MD Objective Remarks General: Sitting up in bed, in good spirits, no breathing difficulties, no coughing heard, looks better than yesterday. Skin: No rashes or lesions HEENT: Normocephalic, no conjunctivitis, no nasal discharge, no oral ulcers, pharynx normal, dentures in place. Neck: No lymphadenopathy, no thyromegaly. CV: RRR, no murmurs, rubs, or gallops. Pulses symmetrical and intact. Normal capillary refill. Lungs: Significant rales present bilaterally. Wheezing is gone. Breathing comfortably. No coughing heard during exam. Abdomen: Soft, nontender, non-distended. No abdominal masses felt. Ext: No edema, fair range of motion. Neuro: Awake, alert. (Mike Dillon MD R3) A/P Assessment and Plan 77 year old female with a history of emphysema/COPD and pulmonary fibrosis presents with shortness of breath. CTA showing multiple left-sided pleural based masses and subcarinal lymphadenopathy suspicious for malignant process. Discharge Planning Pending biopsy results, recommendations from digitizer, arrangement with outpatient care as needed. (Mike Dillon MD R3) Attending Attestation A detailed discussion regarding patients diagnosis was held with Dr Dillon,Seen and examined EMR reviewed, Agree with contents of note and dianosis, See Orders.Discussed complication risk of needle biopsy with patient and family, (Andry Templeton MD) Problem List: (1) Shortness of breath ICD Codes: R06.02 - Shortness of breath Status: Acute Plan: Presenting with shortness of breath and left sided chest pain that is chronic. PE ruled out with CTA. Has history of COPD. Last ECHO 2010 showed PA peak pressure of 36 mmHg, EF of 55-60%, mild LVH, increased right ventricular systolic pressure. Has history of pulmonary fibrosis and sees Dr. Loco. Unclear etiology of pulmonary fibrosis, possibly idiopathic. BNP is normal. Initial Troponin and EKG is normal. Chest x-ray normal. CTA showing lung masses and subcarinal lymphadenopathy. Troponin and EKG's normal. - See plan for lung masses and pulmonary fibrosis, COPD. (2) Mass of left lung ICD Codes: R91.8 - Other nonspecific abnormal finding of lung field Status: Acute Plan: CTA for PE revealed multiple left-sided pleural based masses, malignant until proven otherwise. Also showed subcarinal lymphadenopathy concerning for possible metastatic disease. History of smoking, quit 30 years ago. Differential includes infection, inflammatory, malignancy, granulomata scars, fungi, mycobacteria, rheumatoid arthritis, amyloidosis, sarcoidosis, granulomatosis polyangiitis, abscesses. - Consult medical oncology. - Consult pulmonology - Consult IR for CT guided biopsy - Further workup depending on biopsy results. (3) Emphysema/COPD ICD Codes: J43.9 - Emphysema, unspecified Status: Chronic Plan: History of COPD/emphysema, follows with Dr. Loco. Possibly having a COPD exacerbation. Quit smoking 30 yrs ago. - Fluticasone/Vilanterol 200-25 1 puff daily continued from home - DuoNeb q4hrs - Albuterol PRN for SOB or wheezing - Continue prednisone 40 mg daily - Completed a 5 day course of Azithromycin - Consult pulmonology - Influenza and pneumococcal vaccine if not already done (4) pulmonary fibrosis Status: Chronic Plan: Unclear etiology, possibly idiopathic. - Consult her digitizer, Dr. Loco - Attempt to find more records, communicate with digitizer (5) Hypertension ICD Codes: I10 - Hypertension Status: Chronic Plan: Chronic hypertension, questionable compliance with blood pressure medicines at home. - Metoprolol 50 mg bid - Diltiazem 180 mg daily, reports she wasn't taking so will hold. - Hydralazine 50 mg tid - Chlorthalidone 25 mg daily - Clonidine 0.1 mg PRN (6) No contraindication to deep vein thrombosis (DVT) prophylaxis ICD Codes: Z78.9 - Other specified health status Status: Acute Plan: High risk of DVT/PE if malignant process is occurring - Lovenox 40 mg a day (7) Nutrition, metabolism, and development symptoms ICD Codes: R63.8 - Other symptoms and signs concerning food and fluid intake Status: Acute Plan: PO fluids Stable electrolytes Normal kidney function for age Encourage good PO intake (Mike Dillon MD R3) Mike Dillon MD R3 May 18, 2017 11:41 Andry Templeton MD May 19, 2017 15:22
--- NOTE | 2017-05-18 15:01 | EKG ---
Date Performed: 05/17/2017 Time Performed: 21:22:59 PTAGE: 77 years EKG: Sinus rhythm POSSIBLE RIGHT VENTRICULAR CONDUCTION DELAY BORDERLINE ECG PREVIOUS TRACING : 05/17/2017 10.15 Compared to prior tracing no significant change DOCTOR: Rola Garduno Interpretating Date/Time 05/18/2017 14:54:49
[2017-05-18] MEDS ORDERED: LIDOCAINE 1%/EPINEPHrine 1:100,000 SOLN 20 ML VIAL ONE (15:31)
[2017-05-18] MEDS ORDERED: MIDAZOLAM HCL 2 MG/2 ML VIAL ONE (15:40)
--- NOTE | 2017-05-18 16:43 | PD.RAD ---
Post CT Procedure Prog Note Pre Procedure Diagnosis: (1) Mass of left lung Post Procedure Diagnosis: (1) Mass of left lung Procedure Date: May 18, 2017 Supervising Radiologist: Dalton Infante JR Anesthesia: Conscious Sedation Plan of Activity Patient to Unit: [facility] Patient Condition: Good See PACS Report for procedural detail/treatment Biopsy Imaging Guidance: CT Side: Left Biopsy Procedure: Lung Specimen: Core Biopsy Findings: Two core samples and one micro sample of pleural based mass in left upper hemithorax. No PTX on post images. Jr. Naresh,Dalton Acuna MD May 18, 2017 16:43
[2017-05-18] MEDS ORDERED: oxyCODONE/ACETAMINOPHEN 5 MG/325 MG TAB PO PRN (16:45)
[2017-05-18] MEDS: ENOXAPARIN SODIUM 40 MG/0.4 ML SYRINGE SQ SCH (17:00)
--- NOTE | 2017-05-18 17:38 | RADRPT ---
EXAM DATE/TIME: 05/18/2017 16:16 [facility] COMPARISON: CT PULMONARY ANGIOGRAM, May 17, 2017, 11:14. INDICATIONS : Left lung masses with subcarinal lymphadenopathy. SEDATION TIME: 20 minutes BIOPSY SITE: Left Anterior chest MEDICATION(S): 1.) 3 mg midazolam (Versed) IV 2.) 150 mcg fentanyl (Sublimaze) IV DEVICE(S): 1.) 19 gauge micropuncture introducer 2.) 20 gauge Temno core biopsy needle MEDICAL HISTORY : Chronic obstructive pulmonary disease. Congestive heart failure. Hypertension. SURGICAL HISTORY : None. ENCOUNTER: Initial ACUITY: 1 day PAIN SCORE: 0/10 LOCATION: Left chest A total of two core specimen(s) were obtained and sent to the laboratory for pathologic evaluation. PROCEDURE: 1. CT guided lung biopsy. Prior to the procedure informed consent was obtained. Any appropriate prior imaging studies were rev iewed. Using automated exposure control and adjustment of the mA and/or kV according to patient size, radiation dose was kept as low as reasonably achievable to obtain optimal diagnostic quality images. DICOM format image data is available electronically for review and comparison. The site was prepped in a sterile fashion. Full sterile technique was used, including cap, mask, marilu rile gloves and gown and a large sterile sheet. Hand hygiene and 2% chlorhexidine and/or betadine/al cohol prep was utilized per protocol for cutaneous antisepsis. The skin and subcutaneous tissues wer e infiltrated with local anesthetic solution. With CT guidance the pleural based mass involving the anterior left hemithorax was localized. Biopsy was performed using a coaxial technique with 19 gauge introducer needle and 20 gauge core needle. 2 c ore samples were taken and placed in formalin. Micro-culture sample was also obtained. Adequate hemos tasis was obtained with compression at the puncture site. Follow-up CT scan reveals no pneumothorax. Conscious sedation was performed with the prescribed dosages and duration as above in the presence of an independent trained radiology nurse to assist in the monitoring of the patient. EKG and oximetry remained stable throughout the procedure. The patient tolerated the procedure well and there were no complications. The patient was sent to Radiology Outpatient Unit in stable condition. CONCLUSION: Uncomplicated CT guided biopsy of a pleural-based mass involving the left chest. Samples sent for his tology and microbiology. Dalton Infante Jr., MD on May 18, 2017 at 17:35 Board Certified Radiologist. This report was verified electronically.
--- NOTE | 2017-05-18 18:03 | HHI.PR ---
Subjective Remarks 77 YOAA female with lung masses, PF,PHTN Had CT guided bx done mild sob No Fever Objective Vital Signs Vital Signs Date Time Temp Pulse Resp B/P (MAP) Pulse Ox O2 Delivery O2 Flow Rate FiO2 05/18/17 17:30 83 16 119/63 (81) 96 05/18/17 17:15 85 16 111/67 (82) 96 05/18/17 17:00 96.8 85 16 120/74 (89) 94 05/18/17 08:36 96 05/18/17 08:00 97.1 96 18 144/89 (107) 92 05/18/17 07:24 93 21 05/18/17 04:00 97.6 80 20 119/81 (94) 95 05/18/17 00:00 97.7 84 18 146/84 (104) 96 05/17/17 19:35 96.8 88 20 163/94 (117) 92 05/17/17 19:29 88 I/O 05/17/17 05/17/17 05/17/17 05/18/17 05/18/17 05/18/17 07:00 15:00 23:00 07:00 15:00 23:00 Output Total 600 ml Balance -600 ml Output Urine Total 600 ml Result Diagram: 05/18/178 05/18/17117 Objective Remarks GENERAL: Elderly female, mild sob SKIN: Warm and dry. HEAD: Normocephalic. EYES: No scleral icterus. No injection or drainage. NECK: Supple, trachea midline. No JVD or lymphadenopathy. CARDIOVASCULAR: Regular rate and rhythm without murmurs, gallops, or rubs. RESPIRATORY: Breath sounds equal bilaterally. No accessory muscle use. GASTROINTESTINAL: Abdomen soft, non-tender, nondistended. MUSCULOSKELETAL: No cyanosis, or edema. BACK: Nontender without obvious deformity. No CVA tenderness. A/P Assessment and Plan Lung masses S/p CT guided bx PHTN Pulm Fibrosis HTN PLAN: Dw pt and family Check Bx results Cont steroids Aerosol Jamil Maldonado MD May 18, 2017 18:03
[2017-05-19] VITALS (9 sets, daily range): BP systolic 115–148; BP diastolic 73–90; PULSE 81–91; RESP 18–20; TEMP 96.3–97.9; O2SAT 93–97
[2017-05-19] MEDS: RESP: ALBUTEROL 2.5 MG/IPRATROPIUM 0.5 MG NEB (SCH) INH ×6 (00:10→20:48)
[2017-05-19] MEDS: ACETAMINOPHEN 325 MG TAB PO PRN ×4 (03:34→22:07)
[2017-05-19 07:42] LABS: HEMATOCRIT 38.5 % (35.0-46.0); MEAN CELL VOLUME 76.5 FL (80.0-100.0); MEAN CORPUSCULAR HEMOGLOBIN 25.2 PG (27.0-34.0); MEAN CORPUSCULAR HGB CONC 32.9 % (32.0-36.0); PLATELET COUNT 243 TH/MM3 (150-450); RED BLOOD COUNT 5.03 MIL/MM3 (4.00-5.30); RED CELL DISTRIBUTION WIDTH 17.2 % (11.6-17.2); REVIEW FLAG FINAL
[2017-05-19 07:58] LABS: BICARBONATE 27.4 MEQ/L (21.0-32.0); POTASSIUM 3.7 MEQ/L (3.5-5.1)
[2017-05-19] MEDS: FLUTICASONE 200 MCG/VILANTEROL 25 MCG INHALER INH SCH (08:52)
[2017-05-19] MEDS: predniSONE 20 MG TAB PO SCH (08:52)
[2017-05-19] MEDS: POTASSIUM CHLORIDE 20 MEQ CONTROLLED RELEASE TAB PO SCH (08:53)
[2017-05-19] MEDS: CHOLECALCIFEROL (VIT D3) 1000 UNIT TAB PO SCH (08:53)
[2017-05-19] MEDS: METOPROLOL TARTRATE 50 MG TAB PO SCH ×2 (08:53→22:02)
[2017-05-19] MEDS: CHLORTHALIDONE 50 MG TAB PO SCH (08:53)
[2017-05-19] MEDS: hydrALAZINE HCL 50 MG TAB PO SCH ×3 (08:53→17:31)
[2017-05-19] MEDS: SODIUM CHLORIDE 0.9% FLUSH 10 ML FLUSH IV FLUSH SCH ×2 (08:54→21:59)
[2017-05-19] MEDS: DOCUSATE SODIUM 50 MG/SENNA 8.6 MG TAB PO SCH ×2 (08:58→21:58)
[2017-05-19] MEDS ORDERED: DIAZEPAM 2 MG TAB PO PRN (11:15)
--- NOTE | 2017-05-19 11:18 | HHI.FPPN ---
Subjective Remarks No events overnight. Patient sitting up in chair. Breathing much better. Had one episode of coughing with shortness of breath overnight. Daughter in room believes it was partly due to anxiety. No problems with the procedure for biopsy yesterday. (Mike Dillon MD R3) Objective Vitals Vital Signs Date Time Temp Pulse Resp B/P (MAP) Pulse Ox O2 Delivery O2 Flow Rate FiO2 05/19/17 08:00 97.0 83 18 143/80 (101) 94 05/19/17 07:55 Room Air 05/19/17 07:30 82 05/19/17 04:00 97.4 81 20 148/86 (106) 96 05/19/17 00:13 94 05/19/17 00:00 97.3 90 18 115/73 (87) 95 05/18/17 21:13 95 21 05/18/17 21:00 96.1 90 24 130/82 (98) 96 05/18/17 19:50 96.2 99 22 143/81 (101) 96 05/18/17 17:30 83 16 119/63 (81) 96 05/18/17 17:15 85 16 111/67 (82) 96 05/18/17 17:00 96.8 86 20 120/74 (89) 93 05/18/17 17:00 96.8 85 16 120/74 (89) 94 05/18/17 12:00 96.7 75 18 125/82 (96) 97 I/O 05/18/17 05/18/17 05/18/17 05/19/17 05/19/17 05/19/17 07:00 15:00 23:00 07:00 15:00 23:00 Intake Total 480 ml 480 ml Output Total 600 ml Balance -600 ml 480 ml 480 ml Intake Oral 480 ml 480 ml Output Urine Total 600 ml # Voids 1 2 (Mike iDllon MD R3) Result Diagram: 05/19/1772005/19/17720 Imaging Last [address] Angiography 05/17/17 1001 Signed Impressions: Service Date/Time: Wednesday, May 17, 2017 11:14 - CONCLUSION: 1. No pulmonary embolus. 2. Multiple left-sided pleural-based masses, malignant until proven otherwise. Metastatic disease and mesothelioma would be in the differential. 3. Subcarinal lymphadenopathy of concern for metastatic disease. 4. Chronic pulmonary fibrosis again noted. Jose A Mustafa MD Chest X-Ray 05/17/17 0959 Signed Impressions: Service Date/Time: Wednesday, May 17, 2017 10:14 - CONCLUSION: Chronic findings without definite acute infiltrate. Jose A Mustafa MD Lung Biopsy CT 05/17/17 0000 Signed Impressions: Service Date/Time: April 16:16 - CONCLUSION: Uncomplicated CT guided biopsy of a pleural-based mass involving the left chest. Samples sent for histology and microbiology. Dalton Infante Jr., MD Objective Remarks General: Sitting up in chair, no distress Skin: No rashes or lesions HEENT: Normocephalic, no conjunctivitis, no nasal discharge, no oral ulcers, pharynx normal, dentures in place. Neck: No lymphadenopathy, no thyromegaly. CV: RRR, no murmurs, rubs, or gallops. Pulses symmetrical and intact. Normal capillary refill. Lungs: Significant rales present bilaterally. Wheezing is gone. Breathing comfortably. No coughing heard during exam. Abdomen: Soft, nontender, non-distended. No abdominal masses felt. Ext: No edema, fair range of motion. Neuro: Awake, alert. (Mike Dillon MD R3) A/P Assessment and Plan 77 year old female with a history of emphysema/COPD and pulmonary fibrosis presents with shortness of breath. CTA showing multiple left-sided pleural based masses and subcarinal lymphadenopathy suspicious for malignant process. Discharge Planning Patient had episode of coughing/shortness of breath overnight, patient and family more comfortable to be monitored today, if feeling better later she may go home or if not she may stay overnight for monitoring. Could follow up biopsy results as an outpatient. (Mike Dillon MD R3) Attending Attestation A detailed discussion regarding patients diagnosis was held with Dr Dillon,Seen and examied EMR reviewed, Agree with contents of note and dianosis, See Orders. (Andry Templeton MD) Problem List: (1) Shortness of breath ICD Codes: R06.02 - Shortness of breath Status: Acute Plan: Presenting with shortness of breath and left sided chest pain that is chronic. PE ruled out with CTA. Has history of COPD. Last ECHO 2010 showed PA peak pressure of 36 mmHg, EF of 55-60%, mild LVH, increased right ventricular systolic pressure. Has history of pulmonary fibrosis and sees Dr. Loco. Unclear etiology of pulmonary fibrosis, possibly idiopathic. BNP is normal. Initial Troponin and EKG is normal. Chest x-ray normal. CTA showing lung masses and subcarinal lymphadenopathy. Troponin and EKG's normal. - See plan for lung masses and pulmonary fibrosis, COPD. - Partly due to anxiety, in addition to COPD/fibrosis/masses. Will try low dose diazepam to see if improvement in symptoms. (2) Mass of left lung ICD Codes: R91.8 - Other nonspecific abnormal finding of lung field Status: Acute Plan: CTA for PE revealed multiple left-sided pleural based masses, malignant until proven otherwise. Also showed subcarinal lymphadenopathy concerning for possible metastatic disease. History of smoking, quit 30 years ago. Differential includes infection, inflammatory, malignancy, granulomata scars, fungi, mycobacteria, rheumatoid arthritis, amyloidosis, sarcoidosis, granulomatosis polyangiitis, abscesses. - Consult medical oncology. - Consult pulmonology - Further workup depending on biopsy results. (3) Emphysema/COPD ICD Codes: J43.9 - Emphysema, unspecified Status: Chronic Plan: History of COPD/emphysema, follows with Dr. Loco. Possibly having a COPD exacerbation. Quit smoking 30 yrs ago. - Fluticasone/Vilanterol 200-25 1 puff daily continued from home - DuoNeb q4hrs - Albuterol PRN for SOB or wheezing - Continue prednisone 40 mg daily - Completed a 5 day course of Azithromycin - Consult pulmonology - Influenza and pneumococcal vaccine if not already done (4) pulmonary fibrosis Status: Chronic Plan: Unclear etiology, possibly idiopathic. - Consult her forestry worker, Dr. Loco - Attempt to find more records, communicate with forestry worker (5) Hypertension ICD Codes: I10 - Hypertension Status: Chronic Plan: Chronic hypertension, questionable compliance with blood pressure medicines at home. - Metoprolol 50 mg bid - Diltiazem 180 mg daily, reports she wasn't taking so will hold. - Hydralazine 50 mg tid - Chlorthalidone 25 mg daily - Clonidine 0.1 mg PRN (6) No contraindication to deep vein thrombosis (DVT) prophylaxis ICD Codes: Z78.9 - Other specified health status Status: Acute Plan: High risk of DVT/PE if malignant process is occurring - Lovenox 40 mg a day (7) Nutrition, metabolism, and development symptoms ICD Codes: R63.8 - Other symptoms and signs concerning food and fluid intake Status: Acute Plan: PO fluids Stable electrolytes Normal kidney function for age Encourage good PO intake (Mike Dillon MD R3) Mike Dillon MD R3 May 19, 2017 11:18 Andry Templeton MD May 19, 2017 15:29
--- NOTE | 2017-05-19 12:09 | HHI.DCPOC ---
Discharge Care Plan Diagnosis: (1) pulmonary fibrosis (2) Shortness of breath (3) Mass of left lung Goals to Promote Your Health * To prevent worsening of your condition and complications * To maintain your health at the optimal level Directions to Meet Your Goals Take your medications as prescribed Follow your dietary instruction Follow activity as directed Keep your appointments as scheduled Take your immunizations and boosters as scheduled If your symptoms worsen call your PCP, if no PCP go to Urgent Care Center or Emergency Room Smoking is Dangerous to Your Health. Avoid second hand smoke Call the 24-hour hour crisis hotline for domestic abuse at Mike Dillon MD R3 May 19, 2017 12:09
[2017-05-19] MEDS ORDERED: PRED20 PO (12:10)
[2017-05-19] MEDS: ENOXAPARIN SODIUM 40 MG/0.4 ML SYRINGE SQ SCH (17:31)
--- NOTE | 2017-05-19 18:43 | HHI.PR ---
Subjective Remarks 77 YOAA female with lung masses, PF,PHTN Had CT guided bx done mild sob No Fever Feels weak Occ headache. Objective Vital Signs Vital Signs Date Time Temp Pulse Resp B/P (MAP) Pulse Ox O2 Delivery O2 Flow Rate FiO2 05/19/17 16:20 94 21 05/19/17 12:00 96.6 81 18 140/79 (99) 95 05/19/17 08:00 97.0 83 18 143/80 (101) 94 05/19/17 07:55 Room Air 05/19/17 07:30 82 05/19/17 04:00 97.4 81 20 148/86 (106) 96 05/19/17 00:13 94 05/19/17 00:00 97.3 90 18 115/73 (87) 95 05/18/17 21:13 95 21 05/18/17 21:00 96.1 90 24 130/82 (98) 96 05/18/17 19:50 96.2 99 22 143/81 (101) 96 I/O 05/18/17 05/18/17 05/18/17 05/19/17 05/19/17 05/19/17 07:00 15:00 23:00 07:00 15:00 23:00 Intake Total 480 ml 480 ml Output Total 600 ml Balance -600 ml 480 ml 480 ml Intake Oral 480 ml 480 ml Output Urine Total 600 ml # Voids 1 2 Result Diagram: 05/19/1772005/19/17720 Objective Remarks GENERAL: Elderly female, mild sob SKIN: Warm and dry. HEAD: Normocephalic. EYES: No scleral icterus. No injection or drainage. NECK: Supple, trachea midline. No JVD or lymphadenopathy. CARDIOVASCULAR: Regular rate and rhythm without murmurs, gallops, or rubs. RESPIRATORY: Breath sounds equal bilaterally. No accessory muscle use. GASTROINTESTINAL: Abdomen soft, non-tender, nondistended. MUSCULOSKELETAL: No cyanosis, or edema. BACK: Nontender without obvious deformity. No CVA tenderness. A/P Assessment and Plan Lung masses S/p CT guided bx PHTN Pulm Fibrosis HTN PLAN: Dw pt and family Check Bx results Cont steroids Aerosol nebs DC plans underway. Jamil Loco MD May 19, 2017 18:43
[2017-05-20] VITALS: BP 142/81; PULSE 90; RESP 16; TEMP 97.9; O2SAT 97
[2017-05-20] MEDS: RESP: ALBUTEROL 2.5 MG/IPRATROPIUM 0.5 MG NEB (SCH) INH ×4 (00:28→12:39)
[2017-05-20 06:25] LABS: HEMATOCRIT 40.6 % (35.0-46.0); MEAN CELL VOLUME 75.6 FL (80.0-100.0); MEAN CORPUSCULAR HEMOGLOBIN 24.4 PG (27.0-34.0); MEAN CORPUSCULAR HGB CONC 32.3 % (32.0-36.0); PLATELET COUNT 274 TH/MM3 (150-450); RED BLOOD COUNT 5.37 MIL/MM3 (4.00-5.30); RED CELL DISTRIBUTION WIDTH 16.6 % (11.6-17.2); REVIEW FLAG FINAL
[2017-05-20 06:38] LABS: BICARBONATE 27.7 MEQ/L (21.0-32.0); POTASSIUM 3.9 MEQ/L (3.5-5.1)
[2017-05-20 08:00] VITALS: BP 128/73; PULSE 92; RESP 18; TEMP 96.6; O2SAT 96
[2017-05-20] MEDS: CHOLECALCIFEROL (VIT D3) 1000 UNIT TAB PO SCH (08:35)
[2017-05-20] MEDS: predniSONE 20 MG TAB PO SCH (08:35)
[2017-05-20] MEDS: METOPROLOL TARTRATE 50 MG TAB PO SCH (08:35)
[2017-05-20] MEDS: CHLORTHALIDONE 50 MG TAB PO SCH (08:36)
[2017-05-20] MEDS: POTASSIUM CHLORIDE 20 MEQ CONTROLLED RELEASE TAB PO SCH (08:36)
[2017-05-20] MEDS: DOCUSATE SODIUM 50 MG/SENNA 8.6 MG TAB PO SCH (08:36)
[2017-05-20] MEDS: hydrALAZINE HCL 50 MG TAB PO SCH (08:36)
[2017-05-20 08:48] VITALS: O2SAT 95
--- NOTE | 2017-05-20 09:51 | HHI.FPPN ---
Subjective Remarks No acute issues overnight. Vitals are stable, patient remains afebrile. She denies any fevers, chills, chest pain, nausea or vomiting. She continues to cough after breathing treatments, however states that her cough has not worsened. She is feeling better overall. She is anxious to find out what her biopsy shows. Objective Vitals Vital Signs Date Time Temp Pulse Resp B/P (MAP) Pulse Ox O2 Delivery O2 Flow Rate FiO2 05/20/17 08:48 95 21 05/20/17 00:00 97.9 90 16 142/81 (101) 97 05/19/17 20:00 91 05/19/17 20:00 97.9 87 18 140/85 (103) 97 05/19/17 16:20 94 21 05/19/17 16:00 96.3 88 18 147/90 (109) 93 05/19/17 12:00 96.6 81 18 140/79 (99) 95 I/O 05/19/17 05/19/17 05/19/17 05/20/17 05/20/17 05/20/17 07:00 15:00 23:00 07:00 15:00 23:00 Intake Total 480 ml 600 ml 650 ml 480 ml Balance 480 ml 600 ml 650 ml 480 ml Intake Oral 480 ml 600 ml 650 ml 480 ml # Voids 2 3 2 1 # Bowel Movements 1 Result Diagram: 05/20/17 0600 05/20/17 [address] Angiography 05/17/17 1001 Signed Impressions: Service Date/Time: Wednesday, May 17, 2017 11:14 - CONCLUSION: 1. No pulmonary embolus. 2. Multiple left-sided pleural-based masses, malignant until proven otherwise. Metastatic disease and mesothelioma would be in the differential. 3. Subcarinal lymphadenopathy of concern for metastatic disease. 4. Chronic pulmonary fibrosis again noted. Jose A Mustafa MD Chest X-Ray 05/17/17 0959 Signed Impressions: Service Date/Time: Wednesday, May 17, 2017 10:14 - CONCLUSION: Chronic findings without definite acute infiltrate. Jose A Mustafa MD Lung Biopsy CT 05/17/17 0000 Signed Impressions: Service Date/Time: April 16:16 - CONCLUSION: Uncomplicated CT guided biopsy of a pleural-based mass involving the left chest. Samples sent for histology and microbiology. Dalton Infante Jr., MD Objective Remarks General: Sitting up in bed reading, no distress Skin: No rashes or lesions HEENT: Normocephalic, no conjunctivitis, no nasal discharge, no oral ulcers, pharynx normal, dentures in place. Neck: No lymphadenopathy, no thyromegaly. CV: RRR, no murmurs, rubs, or gallops. Pulses symmetrical and intact. Normal capillary refill. Lungs: Significant rales present bilaterally. Breathing comfortably. Occasional productive cough. Abdomen: Soft, nontender, non-distended. No abdominal masses felt. Ext: No edema, fair range of motion. Neuro: Awake, alert. A/P Assessment and Plan 77 year old female with a history of emphysema/COPD and pulmonary fibrosis presents with shortness of breath. CTA showing multiple left-sided pleural based masses and subcarinal lymphadenopathy suspicious for malignant process. Discharge Planning Discharge home today. Follow up biopsy results as an outpatient. Problem List: (1) Shortness of breath ICD Codes: R06.02 - Shortness of breath Status: Chronic Plan: Chronic shortness of breath and left sided chest pain. PE ruled out with CTA. Has history of COPD. Last ECHO 2010 showed PA peak pressure of 36 mmHg, EF of 55-60%, mild LVH, increased right ventricular systolic pressure. Has history of pulmonary fibrosis and sees Dr. Loco. Unclear etiology of pulmonary fibrosis , possibly idiopathic. BNP is normal. Initial Troponin and EKG is normal. Chest x-ray normal. CTA showing lung masses and subcarinal lymphadenopathy. Troponin and EKG's normal. - See plan for lung masses and pulmonary fibrosis, COPD. - Partly due to anxiety, in addition to COPD/fibrosis/masses. Will try low dose diazepam to see if improvement in symptoms. (2) Mass of left lung ICD Codes: R91.8 - Other nonspecific abnormal finding of lung field Status: Acute Plan: CTA for PE revealed multiple left-sided pleural based masses, malignant until proven otherwise. Also showed subcarinal lymphadenopathy concerning for possible metastatic disease. History of smoking, quit 30 years ago. Differential includes infection, inflammatory, malignancy, granulomata scars, fungi, mycobacteria, rheumatoid arthritis, amyloidosis, sarcoidosis, granulomatosis polyangiitis, abscesses. - Consult medical oncology. - Consult pulmonology - Further workup depending on biopsy results. (3) Emphysema/COPD ICD Codes: J43.9 - Emphysema, unspecified Status: Chronic Plan: History of COPD/emphysema, follows with Dr. Loco. Possibly having a COPD exacerbation. Quit smoking 30 yrs ago. - Fluticasone/Vilanterol 200-25 1 puff daily continued from home - DuoNeb q4hrs - Albuterol PRN for SOB or wheezing - Continue prednisone 40 mg daily - Completed a 5 day course of Azithromycin - Consult pulmonology - Influenza and pneumococcal vaccine if not already done (4) pulmonary fibrosis Status: Chronic Plan: Unclear etiology, possibly idiopathic. - Consult her housekeeping manager, Dr. Loco - Follow-up as outpatient (5) Hypertension ICD Codes: I10 - Hypertension Status: Chronic Plan: Chronic hypertension, questionable compliance with blood pressure medicines at home. - Metoprolol 50 mg bid - Diltiazem 180 mg daily, reports she wasn't taking so will hold. - Hydralazine 50 mg tid - Chlorthalidone 25 mg daily - Clonidine 0.1 mg PRN (6) No contraindication to deep vein thrombosis (DVT) prophylaxis ICD Codes: Z78.9 - Other specified health status Status: Acute Plan: High risk of DVT/PE if malignant process is occurring - Lovenox 40 mg a day (7) Nutrition, metabolism, and development symptoms ICD Codes: R63.8 - Other symptoms and signs concerning food and fluid intake Status: Acute Plan: PO fluids Stable electrolytes Normal kidney function for age Encourage good PO intake Problem Qualifiers (1) Emphysema/COPD: Qualified Codes: J43.9 - Emphysema, unspecified (2) Hypertension: Qualified Codes: I10 - Essential (primary) hypertension Liliana Roblero MD, R3 May 20, 2017 09:51
[2017-05-20 12:00] VITALS: BP 138/71; PULSE 102; RESP 18; TEMP 100.3; O2SAT 96
--- NOTE | 2017-05-22 14:07 | HHI.DS ---
Discharge Summary Admission Date May 17, 2017 at 13:31 Discharge Date: May 20, 2017 Admitting Diagnosis LEFT PLEURAL BASED MASSES/COPD EXACERBATION (1) Shortness of breath Diagnosis: Principal Plan: Chronic shortness of breath and left sided chest pain. PE ruled out with CTA. Has history of COPD. Last ECHO 2010 showed PA peak pressure of 36 mmHg, EF of 55-60%, mild LVH, increased right ventricular systolic pressure. Has history of pulmonary fibrosis and sees Dr. Loco. Unclear etiology of pulmonary fibrosis , possibly idiopathic. BNP is normal. Initial Troponin and EKG is normal. Chest x-ray normal. CTA showing lung masses and subcarinal lymphadenopathy. Troponin and EKG's normal. - See plan for lung masses and pulmonary fibrosis, COPD. - Partly due to anxiety, in addition to COPD/fibrosis/masses. Will try low dose diazepam to see if improvement in symptoms. ICD Codes: R06.02 - Shortness of breath Status: Chronic (2) Mass of left lung Diagnosis: Principal Plan: CTA for PE revealed multiple left-sided pleural based masses, malignant until proven otherwise. Also showed subcarinal lymphadenopathy concerning for possible metastatic disease. History of smoking, quit 30 years ago. Differential includes infection, inflammatory, malignancy, granulomata scars, fungi, mycobacteria, rheumatoid arthritis, amyloidosis, sarcoidosis, granulomatosis polyangiitis, abscesses. - Consult medical oncology. - Consult pulmonology - Further workup depending on biopsy results. ICD Codes: R91.8 - Other nonspecific abnormal finding of lung field Status: Acute (3) Emphysema/COPD Diagnosis: Principal Plan: History of COPD/emphysema, follows with Dr. Loco. Possibly having a COPD exacerbation. Quit smoking 30 yrs ago. - Fluticasone/Vilanterol 200-25 1 puff daily continued from home - DuoNeb q4hrs - Albuterol PRN for SOB or wheezing - Continue prednisone 40 mg daily - Completed a 5 day course of Azithromycin - Consult pulmonology - Influenza and pneumococcal vaccine if not already done ICD Codes: J43.9 - Emphysema, unspecified Status: Chronic (4) pulmonary fibrosis Diagnosis: Principal Plan: Unclear etiology, possibly idiopathic. - Consult her carburetor expert, Dr. Loco - Follow-up as outpatient Status: Chronic (5) Hypertension Diagnosis: Secondary Plan: Chronic hypertension, questionable compliance with blood pressure medicines at home. - Metoprolol 50 mg bid - Diltiazem 180 mg daily, reports she wasn't taking so will hold. - Hydralazine 50 mg tid - Chlorthalidone 25 mg daily - Clonidine 0.1 mg PRN ICD Codes: I10 - Hypertension Status: Chronic (6) No contraindication to deep vein thrombosis (DVT) prophylaxis Diagnosis: Secondary Plan: High risk of DVT/PE if malignant process is occurring - Lovenox 40 mg a day ICD Codes: Z78.9 - Other specified health status Status: Acute (7) Nutrition, metabolism, and development symptoms Diagnosis: Secondary Plan: PO fluids Stable electrolytes Normal kidney function for age Encourage good PO intake ICD Codes: R63.8 - Other symptoms and signs concerning food and fluid intake Status: Acute Consultants Pulmonology, oncology Procedures CT guided biopsy of lung Brief History 77 year old female with a history of COPD and pulmonary fibrosis, followed by Dr. Loco (carburetor expert), presents with chronic left sided chest pain and increasing shortness of breath. Symptoms started 6 months ago but have been worsening over the past week. She saw Dr. Loco for the worsening shortness of breath and was put on Azithromycin 5 days course (last dose today) and prednisone. The chest pain is located down the entire left side of her thorax and is associated with breathing. She reports increased wheezing and coughing up phlegm that ranges from white to yellow. She has no hemoptysis. She becomes short of breath just walking across the house. She feels generally fatigued. She has no fevers. She reports weight loss but chart review reveals no weight loss. She quit smoking 40 years ago but smoked a PPD before then. She had an ECHO done in 2010 that showed increased right ventricular pressure and mild LVH but normal ejection fraction. She reports no recent travel. She reports no sick contacts. She is accompanied by her and daughter. The etiology of her pulmonary fibrosis is not clear from the records, will continued to investigate. She reports no history of rheumatoid arthritis, lupus, or sarcoidosis. CBC/BMP: 05/20/17 0600 05/20/17 0600 Significant Findings Laboratory Tests Test 05/20/17 06:00 White Blood Count 12.0 TH/MM3 (4.0-11.0) Red Blood Count 5.37 MIL/MM3 (4.00-5.30) Mean Corpuscular Volume 75.6 FL (80.0-100.0) Mean Corpuscular Hemoglobin 24.4 PG (27.0-34.0) Sodium Level 131 MEQ/L (136-145) Chloride Level 94 MEQ/L (98-107) Estimat Glomerular Filtration Rate 74 ML/MIN (>89) PE at Discharge General: Sitting up in bed reading, no distress Skin: No rashes or lesions HEENT: Normocephalic, no conjunctivitis, no nasal discharge, no oral ulcers, pharynx normal, dentures in place. Neck: No lymphadenopathy, no thyromegaly. CV: RRR, no murmurs, rubs, or gallops. Pulses symmetrical and intact. Normal capillary refill. Lungs: Significant rales present bilaterally. Breathing comfortably. Occasional productive cough. Abdomen: Soft, nontender, non-distended. No abdominal masses felt. Ext: No edema, fair range of motion. Neuro: Awake, alert. Hospital Course 77 year old female with a history of COPD and pulmonary fibrosis, followed by Dr. Loco (carburetor expert), presented to the ED on 05/17/17 with chronic left sided chest pain and increasing shortness of breath. Symptoms started 6 months ago but became worse over the past week. She saw Dr. Loco about a week before presenting to the ED and was placed on a course of Azithromycin. The chest pain was located down the entire left side of her thorax and was associated with breathing. She also had increased wheezing and coughing up phlegm that ranged from white to yellow. CTA to rule out PE found multiple left sided pleural based masses and subcarinal lymphadenopathy. Last ECHO in 2010 showed a PA peak pressure of 36 mmHg, EF of 55-60%, mild LVH, increased right ventricular systolic pressure. Her pulmonary fibrosis has an unclear etiology, possibly idiopathic. Her BNP is normal. Her troponin and EKG's were normal. Chest x-ray was normal. She has a history of smoking, quit 30 years ago. Differential for the lung masses includes infection, inflammation, malignancy, granulomata scars , fungi, mycobacteria, rheumatoid arthritis, amyloidosis, sarcoidosis, granulomatosis, polyangiitis, abscesses. Her shortness of breath during hospital stay significantly improved with continued Breo from home, scheduled DuoNeb treatments, and a prednisone course. She has CT guided biopsy of her lung masses. She will follow up with her carburetor expert. She has pending lung biopsy results. Oncology is aware of her case and is able to accept her care if lung masses prove to be malignant. She will follow with her primary care doctor. Pt Condition on Discharge: Stable Discharge Disposition: Discharge Home Discharge Instructions DIET: Follow Instructions for: Heart Healthy Diet Activities you can perform: Regular-No Restrictions Follow up Referrals: PCP Follow-up - 1 Week Pulmonology - 1 Week New Medications: Prednisone (Prednisone) 20 Mg Tab 40 MG PO DAILY, #3 TAB 0 Refills Continued Medications: Acetaminophen (Tylenol) 325 Mg Tab 500 MG PO Q6H PRN for pain, TAB 0 Refills Albuterol 18 GM Inh (Ventolin Hfa 18 GM Inh) 90 Mcg/Act Aer 2 PUFF INH Q6H PRN for SHORTNESS OF BREATH, #1 INHALER 5 Refills Albuterol 8.5 GM Inh (Proair Hfa 8.5 GM Inh) 90 Mcg/Act Aer 2 PUFF INH Q6H PRN for SHORTNESS OF BREATH, #1 INHALER 0 Refills 108 mcg/actuation Chlorthalidone (Chlorthalidone) 25 Mg Tab 25 MG PO DAILY, #30 TAB 3 Refills Cholecalciferol (Vitamin D-3) 1,000 Unit Cap 1000 UNITS PO DAILY, #30 UNIT 5 Refills Clonidine (Clonidine) 0.1 Mg Tab 0.1 MG PO Q8HR PRN for SBP>160, DBP>90, #90 TAB 2 Refills Diltiazem ER 24 HR (Diltiazem ER 24 HR) 180 Mg Belle 180 MG PO DAILY, #30 TAB 3 Refills Fluticasone-Vilanterol Inh (Breo Ellipta Inh) 200-25 Mcg/Act Inh 1 PUFF INH DAILY, #1 INHALER 0 Refills Use daily at the same time. Fluticasone-Vilanterol Inh (Breo Ellipta Inh) 200-25 Mcg/Act Inh 1 PUFF INH DAILY, #1 INHALER 0 Refills Use daily at the same time. Hydralazine HCl (Hydralazine HCl) 50 Mg Tablet 50 MG PO TID, #90 TAB 5 Refills Metoprolol Tartrate (Metoprolol Tartrate) 50 Mg Tab 50 MG PO BID, #60 TAB 0 Refills Potassium Chloride ER (Potassium Chloride ER) 20 Meq Tab 20 MEQ PO DAILY for Electrolyte Replacement, #30 TAB 5 Refills Discontinued Medications: Azithromycin (Zithromax) 250 Mg Tab 250 MG PO DIRECTED for Infection, #6 TAB 0 Refills Take 2 tabs (500 mg) on day 1 then 1 tab daily x 4 days. Levofloxacin (Levofloxacin) 500 Mg Tablet 500 MG PO DAILY for Infection, TAB 0 Refills Mike Dillon MD R3 May 22, 2017 14:07
== END 2017-05-20 14:06 | disposition home or self-care (01) | DRG 164 ==
LOC: NEPE 09:29 → NEDA 13:31 → N06A 15:39
PROVIDERS: ADMIT Family Medicine; ATTEND Family Medicine
PROC: 0BD Respiratory System, Extraction (ICD-10-PCS; principal; 2017-05-18)
DX: J94.9 Pleural condition, unspecified (principal); J44.1 Chronic obstructive pulmonary disease with (acute) exacerbation; R06.09 Other forms of dyspnea; I11.0 Hypertensive heart disease with heart failure; I50.9 Heart failure, unspecified; E87.8 Other disorders of electrolyte and fluid balance, not elsewhere classified; I27.20 Pulmonary hypertension, unspecified; E87.1 Hypo-osmolality and hyponatremia; J84.10 Pulmonary fibrosis, unspecified; K21.9 Gastro-esophageal reflux disease without esophagitis; M19.90 Unspecified osteoarthritis, unspecified site; E78.00 Pure hypercholesterolemia, unspecified; E87.6 Hypokalemia; F41.9 Anxiety disorder, unspecified; G89.29 Other chronic pain; R59.1 Generalized enlarged lymph nodes; Z87.891 Personal history of nicotine dependence
CPT/HCPCS: 32405; 71010; 71275; 77012; 80048; 80053; 81001; 82550; 82552; 83880; 84484; 85025; 85027; 85610; 85730; 87015; 87040; 87070; 87205; 87804; 88305; 88341; 88342; 93005; 94640; 94664; J1650; J2250; J3010; J7512; Q9967

== ENCOUNTER 2017-08-16 19:49 | Observation (INO) | payer MEDICARE ==
[~2017-08-16] VITALS: Ht 160 cm; Wt 69.5 kg
[~2017-08-16 19:49] MED LIST changes: +ALBUAER3 INH; -CHOL1CAP6 PO; +D31000CA3 PO; -DILT0.05 PO; +FLUT1INH7 INH; -METO100T PO; +METO50TA PO
[2017-08-16 19:51] VITALS: BP 185/103; PULSE 116; RESP 20; TEMP 97.8; O2SAT 97
[2017-08-16 20:21] VITALS: BP 169/109; TEMP 98.5; O2SAT 95
[2017-08-16] MEDS ORDERED: SODIUM CHLORIDE 0.9% FLUSH 10 ML FLUSH IV FLUSH PRN (20:30)
--- NOTE | 2017-08-16 20:57 | RADRPT ---
EXAM DATE/TIME: 08/16/2017 20:26 [facility] COMPARISON: CHEST SINGLE AP, May 17, 2017, 10:14. INDICATIONS : Altered mental status for 2 weeks, syncopal episode today MEDICAL HISTORY : Chronic obstructive pulmonary disease. enlarged heart, cystic fibrosis SURGICAL HISTORY : None. ENCOUNTER: Initial ACUITY: 1 day PAIN SCORE: Non-responsive. LOCATION: Bilateral chest FINDINGS: There is increased airspace disease at the left lung base compared with May 17. Underlying pulmon megan fibrosis. Mild cardiomegaly. No significant effusion. No pneumothorax. CONCLUSION: 1. Left basilar airspace disease new since May 17. Differential diagnosis includes pneumonia and aspiration. Underlying fibrotic changes. Alexandr Felipe MD on August 16, 2017 at 20:54 Board Certified Radiologist. This report was verified electronically.
[2017-08-16 21:00] VITALS: TEMP 98.5
[2017-08-16] MEDS ORDERED: VANCOMYCIN 1 GM/200 ML INJ 200 ML IV ONE (21:00)
[2017-08-16] MEDS ORDERED: PIPERACIL-TAZO 3.375 GM PREMIX 50 ML IV ONE (21:00)
--- NOTE | 2017-08-16 21:21 | RADRPT ---
EXAM DATE/TIME: 08/16/2017 20:33 [facility] COMPARISON: No previous studies available for comparison. INDICATIONS : Altered mental status. RADIATION DOSE: 52.13 CTDIvol (mGy) MEDICAL HISTORY : Hypertension. Chronic obstructive pulmonary disease. SURGICAL HISTORY : None. ENCOUNTER: Initial ACUITY: 1 day PAIN SCALE: 0/10 LOCATION: cranial TECHNIQUE: Multiple contiguous axial images were obtained of the head. Using automated exposure control and adj ustment of the mA and/or kV according to patient size, radiation dose was kept as low as reasonably a chievable to obtain optimal diagnostic quality images. DICOM format image data is available electro nically for review and comparison. FINDINGS: CEREBRUM: The ventricles are normal for age. No evidence of midline shift, mass lesion, hemorrhage or acute in farction. No extra-axial fluid collections are seen. POSTERIOR FOSSA: The cerebellum and brainstem are intact. The 4th ventricle is midline. The cerebellopontine angle i s unremarkable. EXTRACRANIAL: The visualized portion of the orbits is intact. SKULL: The calvaria is intact. No evidence of skull fracture. CONCLUSION: Normal examination for a patient of this age. Alexandr Felipe MD on August 16, 2017 at 21:15 Board Certified Radiologist. This report was verified electronically.
[2017-08-16 21:36] LABS: BASOPHIL # 0.1 TH/MM3 (0-0.2); BASOPHIL % 0.7 % (0.0-2.0); EOSINOPHIL # 0.1 TH/MM3 (0-0.4); EOSINOPHIL % 1.2 % (0.0-4.0); HEMATOCRIT 40.2 % (35.0-46.0); HEMOGLOBIN 13.2 GM/DL (11.6-15.3); LYMPH % 17.7 % (9.0-44.0); LYMPHOCYTE # 1.7 TH/MM3 (1.0-4.8); MEAN CELL VOLUME 73.9 FL (80.0-100.0); MEAN CORPUSCULAR HEMOGLOBIN 24.3 PG (27.0-34.0); MEAN CORPUSCULAR HGB CONC 32.8 % (32.0-36.0); MEAN PLATELET VOLUME 8.9 FL (7.0-11.0); MONO % 8.1 % (0.0-8.0); MONOCYTE # 0.8 TH/MM3 (0-0.9); NEUT % 72.3 % (16.0-70.0); PLATELET COUNT 330 TH/MM3 (150-450); RED BLOOD COUNT 5.44 MIL/MM3 (4.00-5.30); RED CELL DISTRIBUTION WIDTH 15.6 % (11.6-17.2); WHITE BLOOD COUNT 9.7 TH/MM3 (4.0-11.0)
[2017-08-16 21:43] LABS: ACETAMINOPHEN LESS THAN 2.0 MCG/ML (10.0-30.0)
[2017-08-16 21:46] LABS: TROPONIN I LESS THAN 0.02 NG/ML (0.02-0.05)
[2017-08-16 22:03] LABS: INTERNATIONAL NORMALIZED RATIO 1.2 RATIO; PROTHROMBIN TIME - PATIENT 12.1 SEC (9.8-11.6)
[2017-08-16 22:41] LABS: ALBUMIN 3.5 GM/DL (3.4-5.0); AST (GOT) 26 U/L (15-37); BICARBONATE 25.2 MEQ/L (21.0-32.0); BLOOD UREA NITROGEN 12 MG/DL (7-18); CHLORIDE 101 MEQ/L (98-107); GLOMERULAR FILTRATION RATE 98 ML/MIN (>89); GLUCOSE,RANDOM 104 MG/DL (74-106); SODIUM (NA) 138 MEQ/L (136-145)
[2017-08-16 22:42] LABS: ALT (GPT) 27 U/L (10-53)
[2017-08-16 22:44] LABS: ALKALINE PHOSPHATASE 80 U/L (45-117); TOTAL BILIRUBIN ADULT 0.5 MG/DL (0.2-1.0)
[2017-08-16 22:50] VITALS: BP 147/94; PULSE 103; RESP 20; O2SAT 95
[2017-08-16 22:59] LABS: AMORPHOUS SEDIMENT, URINE RARE; BACTERIA, URINE OCC /hpf; BLOOD, URINE NEG (NEG); CALCIUM OXALATE CRYSTALS,URINE MANY /hpf; GLUCOSE,URINE NEG (NEG); HYALINE CAST, URINE 16 /lpf (RARE); KETONE, URINE 40 mg/dL (NEG); MUCUS URINE MANY /lpf (OCC); NITRITE,URINE NEG (NEG); PH, URINE 5.5 (5.0-8.5); SQUAMOUS EPITHELIAL CELL URINE 6 /hpf (0-5); URINE COLOR YELLOW (YELLW/STRAW); URINE LEUKOCYTE ESTERASE LARGE (NEG)
[2017-08-16 23:01] LABS: BILIRUBIN, URINE NEG (NEG)
[2017-08-17] VITALS (7 sets, daily range): BP systolic 142–164; BP diastolic 79–96; PULSE 80–96; RESP 17–20; TEMP 95.4–97.9; O2SAT 94–96
--- NOTE | 2017-08-17 00:20 | PD ---
HPI . Altered mental status Chief Complaint: Altered Mental Status Time Seen by Provider: 20:17 Travel History International Travel<30 days: No Contact w/Intl Traveler<30days: No Traveled to known affect area: No History of Present Illness HPI 77-year-old female with a history of dementia who presents from senior living with an acute change in her mental status with the past few days. Family note that she has a probable urinary tract infection as per notation of staff in senior living. Patient is an unreliable historian. No documentation of fever. PFSH Past Medical History Narrative Medical Past medical history reviewed Hx Anticoagulant Therapy: No Anemia: Yes Arthritis: Yes Asthma: No Autoimmune Disease: No Heart Rhythm Problems: Yes (MURMURS) Cancer: No Cardiovascular Problems: Yes High Cholesterol: Yes Chemotherapy: No Chest Pain: Yes Congestive Heart Failure: Yes COPD: Yes Cerebrovascular Accident: No Diabetes: No Diminished Hearing: No Endocrine: Yes Gastrointestinal Disorders: Yes GERD: Yes Genitourinary: No Headaches: Yes Hypertension: Yes Immune Disorder: No Implanted Vascular Access Dvce: No Kidney Stones: Yes Musculoskeletal: Yes ("DISC PROBLEMS" SPINAL STENOSIS) Neurologic: Yes Psychiatric: No Reproductive: No Respiratory: Yes Immunizations Current: No Migraines: Yes Renal Failure: No Sleep Apnea: No Ulcer: Yes (1979) Menopausal: Yes Tubal Ligation: Yes Past Surgical History Gynecologic Surgery: Yes (PARTIAL HYSTERECTOMY FOM TUBAL ) Hysterectomy: Yes (partial) Oral Surgery: Yes (TEETH PULLED) Other Surgery: Yes (BIOPSY LEFT BREAST, RESULTS NEGATIVE) Social History Alcohol Use: No Tobacco Use: No (QUIT SMOKING 1992 After 30 years) Substance Use: No Allergies-Medications (Allergen,Severity, Reaction): Coded Allergies: No Known Allergies (Unverified Allergy, Unknown, 08/16/17) Reported Meds & Prescriptions Reported Meds & Active Scripts Active Hydralazine HCl 50 Mg Tablet 50 Mg PO TID Clonidine (Clonidine HCl) 0.1 Mg Tab 0.1 Mg PO Q8HR PRN Potassium Chloride ER (Potassium Chloride) 20 Meq Tab 20 Meq PO DAILY Ventolin Hfa 18 GM Inh (Albuterol Sulfate) 90 Mcg/Act Aer 2 Puff INH Q6H PRN Reported Breo Ellipta Inh (Fluticasone/Vilanterol) 200-25 Mcg/Act Inh 1 Puff INH DAILY Use daily at the same time. Proair Hfa 8.5 GM Inh (Albuterol Sulfate) 90 Mcg/Act Aer 2 Puff INH Q6H PRN 108 mcg/actuation Breo Ellipta Inh (Fluticasone/Vilanterol) 200-25 Mcg/Act Inh 1 Puff INH DAILY Use daily at the same time. Tylenol (Acetaminophen) 325 Mg Tab 500 Mg PO Q6H PRN Narrative Medication Allergies and medications reviewed Review of Systems ROS Limitations: Altered Mental Status, Poor Historian Eyes: No: Visual changes Physical Exam Exam Limitations: Altered Mental Status, Poor Historian Narrative GENERAL: Awake and confused. Afebrile SKIN: Warm and dry. Color is normal no diaphoresis cyanosis or pallor HEAD: Atraumatic. Normocephalic. EYES: Pupils equal and round. No scleral icterus. No injection or drainage. ENT: No nasal bleeding or discharge. Mucous membranes pink and moist. NECK: Trachea midline. No JVD. Supple full range of motion CARDIOVASCULAR: Regular rate and rhythm. S1-S2 no murmurs or gallops RESPIRATORY: No accessory muscle use. Clear to auscultation. Breath sounds equal bilaterally. GASTROINTESTINAL: Abdomen soft, non-tender, nondistended. Hepatic and splenic margins not palpable. MUSCULOSKELETAL: Extremities without clubbing, cyanosis, or edema. No obvious deformities. NEUROLOGICAL: Awake and very confused, combative with staff at first, but redirectable verbally. Grossly nonfocal PSYCHIATRIC: Confused with a baseline dementia. Difficult exam Data Data Last Documented VS Vital Signs Date Time Temp Pulse Resp B/P (MAP) Pulse Ox O2 Delivery O2 Flow Rate FiO2 08/16/17 22:50 103 20 147/94 (111) 95 Room Air 08/16/17 21:00 98.5 Orders Orders Complete Blood Count With Diff (08/16/17 19:56) Comprehensive Metabolic Panel (08/16/17 19:56) Prothrombin Time / Inr (Pt) (08/16/17 19:56) Act Partial Throm Time (Ptt) (08/16/17 19:56) Lactic Acid Sepsis Protocol (08/16/17 19:56) Urinalysis - C+S If Indicated (08/16/17 19:56) Electrocardiogram (08/16/17 20:19) Ammonia (08/16/17 20:19) Troponin I (08/16/17 20:19) Thyroid Stimulating Hormone (08/16/17 20:19) Chest, Single Ap (08/16/17 20:19) Ct Brain W/O Iv Contrast(Rout) (08/16/17 20:19) Blood Glucose (08/16/17 20:19) Ecg Monitoring (08/16/17 20:19) Iv Access Insert/Monitor (08/16/17 20:19) Oximetry (08/16/17 20:19) Sodium Chloride 0.9% Flush (Ns Flush) (08/16/17 20:30) Drug Screen, Random Urine (08/16/17 20:19) Alcohol (Ethanol) (08/16/17 20:19) Tylenol (Acetaminophen) (08/16/17 20:19) Salicylates (Aspirin) (08/16/17 20:19) Piperacil-Tazo 3.375 Gm Premix (Zosyn 3. (08/16/17 21:00) Vancomycin Inj (Vancomycin Inj) (08/16/17 21:00) ^ Straight Catheter (08/16/17 22:19) Urine Culture (08/16/17 22:25) Admit Order (Ed Use Only) (08/17/17 00:02) Labs Laboratory Tests Test 08/16/17 21:00 08/16/17 22:25 White Blood Count 9.7 TH/MM3 Red Blood Count 5.44 MIL/MM3 Hemoglobin 13.2 GM/DL Hematocrit 40.2 % Mean Corpuscular Volume 73.9 FL Mean Corpuscular Hemoglobin 24.3 PG Mean Corpuscular Hemoglobin Concent 32.8 % Red Cell Distribution Width 15.6 % Platelet Count 330 TH/MM3 Mean Platelet Volume 8.9 FL Neutrophils (%) (Auto) 72.3 % Lymphocytes (%) (Auto) 17.7 % Monocytes (%) (Auto) 8.1 % Eosinophils (%) (Auto) 1.2 % Basophils (%) (Auto) 0.7 % Neutrophils # (Auto) 7.0 TH/MM3 Lymphocytes # (Auto) 1.7 TH/MM3 Monocytes # (Auto) 0.8 TH/MM3 Eosinophils # (Auto) 0.1 TH/MM3 Basophils # (Auto) 0.1 TH/MM3 CBC Comment DIFF FINAL Differential Comment Prothrombin Time 12.1 SEC Prothromb Time International Ratio 1.2 RATIO Activated Partial Thromboplast Time 26.3 SEC Blood Urea Nitrogen 12 MG/DL Creatinine 0.70 MG/DL Random Glucose 104 MG/DL Total Protein 9.0 GM/DL Albumin 3.5 GM/DL Calcium Level 11.0 MG/DL Alkaline Phosphatase 80 U/L Aspartate Amino Transf (AST/SGOT) 26 U/L Alanine Aminotransferase (ALT/SGPT) 27 U/L Total Bilirubin 0.5 MG/DL Sodium Level 138 MEQ/L Potassium Level 3.6 MEQ/L Chloride Level 101 MEQ/L Carbon Dioxide Level 25.2 MEQ/L Anion Gap 12 MEQ/L Estimat Glomerular Filtration Rate 98 ML/MIN Lactic Acid Level 1.3 mmol/L Ammonia LESS THAN 10 MCMOL/L Troponin I LESS THAN 0.02 NG/ML Thyroid Stimulating Hormone 3rd Gen 1.380 uIU/ML Salicylates Level LESS THAN 1.7 MG/DL Acetaminophen Level LESS THAN 2.0 MCG/ML Ethyl Alcohol Level LESS THAN 3 MG/DL Urine Color YELLOW Urine Turbidity HAZY Urine pH 5.5 Urine Specific Banks 1.031 Urine Protein 30 mg/dL Urine Glucose (UA) NEG mg/dL Urine Ketones 40 mg/dL Urine Occult Blood NEG Urine Nitrite NEG Urine Bilirubin NEG Urine Urobilinogen 2.0 MG/DL Urine Leukocyte Esterase LARGE Urine RBC 35 /hpf Urine WBC 107 /hpf Urine Squamous Epithelial Cells 6 /hpf Urine Calcium Oxalate Crystals MANY /hpf Urine Amorphous Sediment RARE Urine Bacteria OCC /hpf Urine Hyaline Casts 16 /lpf Urine Mucus MANY /lpf Microscopic Urinalysis Comment CATH-CULTURE IND Urine Opiates Screen NEG Urine Barbiturates Screen NEG Urine Amphetamines Screen NEG Urine Benzodiazepines Screen NEG Urine Cocaine Screen NEG Urine Cannabinoids Screen NEG [facility] Medical Decision Making Medical Screen Exam Complete: Yes Emergency Medical Condition: Yes Medical Record Reviewed: Yes Differential Diagnosis Altered mental status, urinary tract infection, pneumonia, Narrative Course Chest x-ray: Right hilar fullness/infiltrate, left basilar infiltrate CT head: Normal as per radiology, no acute intracranial pathology Laboratory examinations reviewed, patient has urinary tract infection via straight catheter sample Patient was pancultured at presentation, patient started on broad-spectrum antibiotics to treat probable pneumonia and urinary tract infection. Case discussed with Dr. Osborne Hospital service, admitted Diagnosis Primary Impression: Pneumonia Qualified Codes: J18.9 - Pneumonia, unspecified organism Additional Impressions: Urinary tract infection Qualified Codes: N39.0 - Urinary tract infection, site not specified Altered mental status Qualified Codes: R41.82 - Altered mental status, unspecified Admitting Information Admitting Physician Requests: Damian Day MD Aug 17, 2017 00:20
--- NOTE | 2017-08-17 00:24 | EKG ---
Date Performed: 08/16/2017 Time Performed: 20:38:24 PTAGE: 77 years EKG: PROBABLE SINUS TACHYCARDIA POSSIBLE RIGHT VENTRICULAR CONDUCTION DELAY NONSPECIFIC ST [address] ABNORMALITY ABNORMAL RHYTHM ECG PREVIOUS TRACING : 05/17/2017 21.22 Compared to prior tracing, rate has increased DOCTOR: Mark Sanchez Interpretating Date/Time 08/17/2017 00:23:09
[2017-08-17] MEDS ORDERED: guaiFENesin/DEXTROMETHORPHAN 200 MG/20 MG/10 ML CUP PO PRN (01:00)
[2017-08-17] MEDS ORDERED: SODIUM CHLORIDE 0.9% FLUSH 10 ML FLUSH IV FLUSH PRN (01:00)
[2017-08-17] MEDS ORDERED: RESP: ALBUTEROL 2.5 MG/IPRATROPIUM 0.5 MG NEB (PRN) INH (01:00)
[2017-08-17] MEDS ORDERED: ACETAMINOPHEN 500 MG CPLT PO PRN (01:15)
[2017-08-17] MEDS ORDERED: Vancomycin Consult Pharmacy 1 EA OTHER SCH (01:15)
--- NOTE | 2017-08-17 02:59 | HHI.HP ---
[facility] Service Family Medicine Primary Care Physician Avila Becerra MD Admission Diagnosis Pneumonia, UTI Diagnoses: International Travel<30 Days: No Contact w/Intl Traveler<30days: No Known Affected Area: No History of Present Illness Patient is a 77-year-old with a h/o Emphysema, COPD, idiopathic pulmonary fibrosis, Squamous cell carcinoma of the left lung (diagnosed 06/09) who presented to the ED with progressively worsening altered mental status for the last 3 weeks. The patient is accompanied by her and daughter who help provide the history. Patient complains of coughing recently. Her family members report that she is becoming increasingly disoriented for the past 3 weeks, not acting like herself, not eating, not drinking water. They have an in-home nurse who noted foul urine. The family talked to our clinic, brought urine specimen, which was sent for UA, which showed UTI. Patient refused to eat, drink, take her antibiotics, so her family wanted to take her to the ED. The patient initially refused to go in the ED, but the family called me through the call center. I met them at the ED and found her not to have decision making capacity to refuse treatment, so she was taken into the ED. Her reports that she was having trouble swallowing water with pills, and she may have choked or aspirated. Dr. Avila Becerra is her primary care physician. (Mike Danielson MD R2) Review of Systems Constitutional: COMPLAINS OF: Weight loss (100 pounds in 2 months), DENIES: Fever, Chills Endocrine: DENIES: Polydipsia, Polyuria Eyes: DENIES: Blurred vision, Vision loss Ears, nose, mouth, throat: COMPLAINS OF: Ear Pain, DENIES: Hearing loss Respiratory: COMPLAINS OF: Cough, Wheezing (off and on) Cardiovascular: DENIES: Chest pain, Dyspnea on Exertion Gastrointestinal: COMPLAINS OF: Abdominal pain (hungry), DENIES: Black stools, Bloody stools Musculoskeletal: DENIES: Joint pain, Muscle aches Integumentary: DENIES: Rash, Nail changes Hematologic/lymphatic: DENIES: Bruising, Lymphadenopathy Neurologic: COMPLAINS OF: Headache, Localized weakness Psychiatric: COMPLAINS OF: Confusion, Mood changes, Agitation (Mike Danielson MD R2) Past Family Social History Past Medical History HTN Fibroids Probable mild dementia Noncompliance Emphysema, COPD, idiopathic pulmonary fibrosis: Follows with pulmonology: Dr. Loco Bilateral cataracts Anemia History of Low B12 Squamous cell carcinoma of the left lung, diagnosed 06/09 Other Physicians: Dr. Marcelino ([employer]) -Health Maintenance: Pt states Last Pap smear in 2007. As we do not have one on file would like to complete one here, and if normal does not need anymore. Pt continues to decline breast, pelvic exam, and rectal exam. Pt has never had colonoscopy, states her sister had a bad experience with perforation of bowel and continues to decline. Discussed CT Colonogram as alternative for colon cancer screening. Pt has not completed, states she "needs help with her insurance" before she can get these completed. Urged her to get these done. The patient's last tetanus shot was in September 2004. Declines Flu shot. Declines Pneumovax. Shingles vaccine: Ask at next visit Dexa scan: Ask at next visit Other studies: ECHO 11/04/2010 55-60% EF, mild LVH, increased pressure in R ventricle and pulm arteries ECHO 11/2015 ejection fraction of 55-60% Past Surgical History Tubal with removal of right tube and ovary 1960s left breast biopsy for benign breast condition many years ago (Mike Danielson MD R2) Allergies: Coded Allergies: No Known Allergies (Unverified Allergy, Unknown, 08/16/17) Family History Stroke, CVD, CHF, cataracts, glaucoma?. No cancers, no diabetes. 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 SKIN: +skin tenting. No rashes, ecchymoses or lesions. Cool and dry. HEAD: Atraumatic. Normocephalic. EYES: Pinpoint pupils equal round and reactive with bilateral arcus senilis. Extraocular motions intact. No scleral icterus. No injection or drainage. ENT: Dry mucous membranes. Edentulous. Nose without bleeding, purulent drainage or septal hematoma. Throat without erythema, tonsillar hypertrophy or exudate. Uvula midline. Airway patent. NECK: Trachea midline. No JVD or lymphadenopathy. Supple, nontender, no meningeal signs. CARDIOVASCULAR: Tachycardic rate and regular rhythm without murmurs, gallops, or rubs. RESPIRATORY: Rales throughout posterior right lung base. No wheezes or rhonchi. GASTROINTESTINAL: Abdomen soft, non-tender, nondistended. No guarding. MUSCULOSKELETAL: Extremities without clubbing, cyanosis, or edema. No joint tenderness, effusion, or edema noted. No calf tenderness. NEUROLOGICAL: Awake and alert. Cranial nerves II through XII grossly intact. Motor and sensory grossly within normal limits. Normal speech. Laboratory Laboratory Tests Test 08/16/17 21:00 08/16/17 22:25 White Blood Count 9.7 Red Blood Count 5.44 Hemoglobin 13.2 Hematocrit 40.2 Mean Corpuscular Volume 73.9 Mean Corpuscular Hemoglobin 24.3 Mean Corpuscular Hemoglobin Concent 32.8 Red Cell Distribution Width 15.6 Platelet Count 330 Mean Platelet Volume 8.9 Neutrophils (%) (Auto) 72.3 Lymphocytes (%) (Auto) 17.7 Monocytes (%) (Auto) 8.1 Eosinophils (%) (Auto) 1.2 Basophils (%) (Auto) 0.7 Neutrophils # (Auto) 7.0 Lymphocytes # (Auto) 1.7 Monocytes # (Auto) 0.8 Eosinophils # (Auto) 0.1 Basophils # (Auto) 0.1 CBC Comment DIFF FINAL Differential Comment Prothrombin Time 12.1 Prothromb Time International Ratio 1.2 Activated Partial Thromboplast Time 26.3 Blood Urea Nitrogen 12 Creatinine 0.70 Random Glucose 104 Total Protein 9.0 Albumin 3.5 Calcium Level 11.0 Alkaline Phosphatase 80 Aspartate Amino Transf (AST/SGOT) 26 Alanine Aminotransferase (ALT/SGPT) 27 Total Bilirubin 0.5 Sodium Level 138 Potassium Level 3.6 Chloride Level 101 Carbon Dioxide Level 25.2 Anion Gap 12 Estimat Glomerular Filtration Rate 98 Lactic Acid Level 1.3 Ammonia LESS THAN 10 Troponin I LESS THAN 0.02 Thyroid Stimulating Hormone 3rd Gen 1.380 Salicylates Level LESS THAN 1.7 Acetaminophen Level LESS THAN 2.0 Ethyl Alcohol Level LESS THAN 3 Urine Color YELLOW Urine Turbidity HAZY Urine pH 5.5 Urine Specific [place] 1.031 Urine Protein 30 Urine Glucose (UA) NEG Urine Ketones 40 Urine Occult Blood NEG Urine Nitrite NEG Urine Bilirubin NEG Urine Urobilinogen 2.0 Urine Leukocyte Esterase LARGE Urine RBC 35 Urine WBC 107 Urine Squamous Epithelial Cells 6 Urine Calcium Oxalate Crystals MANY Urine Amorphous Sediment RARE Urine Bacteria OCC Urine Hyaline Casts 16 Urine Mucus MANY Microscopic Urinalysis Comment CATH-CULTURE IND Urine Opiates Screen NEG Urine Barbiturates Screen NEG Urine Amphetamines Screen NEG Urine Benzodiazepines Screen NEG Urine Cocaine Screen NEG Urine Cannabinoids Screen NEG Date/Time Source Procedure Growth Status 08/16/17 22:25 Urine Catheterized Urine Urine Culture Pending Received (Mike Danielson MD R2) Result Diagram: 08/16/17 2100 08/16/172099 Imaging Last Impressions Head CT 08/16/172018 Signed Impressions: Service Date/Time: Wednesday, August 16, 2017 20:33 - CONCLUSION: Normal examination for a patient of this age. Alexandr Felipe MD Chest X-Ray 08/16/172018 Signed Impressions: Service Date/Time: Wednesday, August 16, 2017 20:26 - CONCLUSION: 1. Left basilar airspace disease new since May 17. Differential diagnosis includes pneumonia and aspiration. Underlying fibrotic changes. Alexandr Felipe MD Course In the emergency department, patient had UA, lactic acid, a PTT, PT/INR, CMP, CBC, aspirin level, Tylenol level, alcohol level, UDS, IV inserted, EKG, blood glucose, CT brain without contrast, chest x-ray, TSH, troponin, ammonia, vancomycin IV, Zosyn IV, urine culture, admission order. (Mike Danielson MD R2) Caprini VTE Risk Assessment Caprini VTE Risk Assessment: Mod/High Risk (score >= 2) Caprini Risk Assessment Model Point Value = 1 Point Value = 2 Point Value = 3 Point Value = 5 Age 41-60 Minor surgery BMI > 25 kg/m2 Swollen legs Varicose veins or History of unexplained or recurrent spontaneous Oral contraceptives or hormone replacement Sepsis (< 1 month) Serious lung disease, including pneumonia (< 1 month) Abnormal pulmonary function Acute myocardial infarction Congestive heart failure (< 1 month) History of inflammatory bowel disease Medical patient at bed rest Age 61-74 Arthroscopic surgery Major open surgery (> 45 min) Laparoscopic surgery (> 45 min) Malignancy Confined to bed (> 72 hours) Immobilizing plaster cast Central venous access Age >= 75 History of VTE Family history of VTE Factor V Leiden Prothrombin [id number] Lupus anticoagulant Anticardiolipin antibodies Elevated serum homocysteine Heparin-induced thrombocytopenia Other congenital or acquired thrombophilia Stroke (< 1 month) Elective arthroplasty Hip, pelvis, or leg fracture Acute spinal cord injury (< 1 month) Prophylaxis Regimen Total Risk Factor Score Risk Level Prophylaxis Regimen 0-1 Low Early ambulation 2 Moderate Order ONE of the following: *Sequential Compression Device (SCD) *Heparin 5000 units SQ BID 3-4 Higher Order ONE of the following medications: *Heparin 5000 units SQ TID *Enoxaparin/Lovenox 40 mg SQ daily (WT < 150 kg, CrCl > 30 mL/min) *Enoxaparin/Lovenox 30 mg SQ daily (WT < 150 kg, CrCl > 10-29 mL/min) *Enoxaparin/Lovenox 30 mg SQ BID (WT < 150 kg, CrCl > 30 mL/min) AND/OR *Sequential Compression Device (SCD) 5 or more Highest Order ONE of the following medications: *Heparin 5000 units SQ TID (Preferred with Epidurals) *Enoxaparin/Lovenox 40 mg SQ daily (WT < 150 kg, CrCl > 30 mL/min) *Enoxaparin/Lovenox 30 mg SQ daily (WT < 150 kg, CrCl > 10-29 mL/min) *Enoxaparin/Lovenox 30 mg SQ BID (WT < 150 kg, CrCl > 30 mL/min) AND *Sequential Compression Device (SCD) (Mike Danielson MD R2) Assessment and Plan Assessment and Plan Patient is a 77-year-old with a h/o Emphysema, COPD, idiopathic pulmonary fibrosis, Squamous cell carcinoma of the left lung (diagnosed 06/09) who presented to the ED with progressively worsening altered mental status for the last 3 weeks, found to have dehydration, UTI, and left lung pneumonia, community -acquired versus aspiration pneumonia. Plan to admit patient for IV antibiotics and IV fluids. (Mike Danielson MD R2) Attending Attestation The patient has been seen and examined. The chart and all resident notes have been reviewed. I agree that inpatient care is appropriate and that a two midnight stay is expected for the reasons documented in the resident history and physical. I have discussed this with the resident and certify the resident s order for inpatient admission. Patient seen and examined. Case reviewed and discussed. Please refer to resident H&P for further details regarding history of present illness, ROS, past medical and surgical history, social and family history. In summary, patient is a 77-year-old female presenting with a three-week progression of altered mental status. Patient was brought in with her family due to concerns for altered mental status and decreased by mouth intake. At the time of my encounter, patient is resting in her hospital bed, sitting upright. She offers no complaints. She is oriented to place and year. GENERAL: Well-developed well-nourished female sitting up in bed SKIN: Warm and dry. No rashes or lesions HEAD: Normocephalic. Atraumatic EYES: No scleral icterus. No injection or drainage. ENT: OP clear. MM slightly dry. NECK: Supple, trachea midline. No JVD or lymphadenopathy. CARDIOVASCULAR: Regular rate and rhythm without murmurs, gallops, or rubs. RESPIRATORY: Breath sounds with bibasilar crackles. No accessory muscle use. GASTROINTESTINAL: Abdomen soft, non-tender, nondistended. No rebound or guarding. Normal active bowel sounds MUSCULOSKELETAL: No cyanosis, no edema. No calf tenderness. BACK: Nontender without obvious deformity. No CVA tenderness. Neuro: Awake and alert. Cranial nerves grossly intact. Assessment and plan: 77-year-old female admitted with: Sepsis due to pneumonia and UTI. Altered mental status Decreased by mouth dehydration Tachycardia Hypercalcemia SCC of the left lung Empiric antibiotic therapy Neurochecks Blood cultures and urine culture pending Monitor vitals IV fluid resuscitation Resume home meds as appropriate Physical therapy Patient seen and examined. Case reviewed and discussed. Agree with plan of care as discussed with me and documented in the resident note. (Lianna Dan MD) Problem List: (1) Altered mental status ICD Codes: R41.82 - Altered mental status, unspecified Status: Acute Plan: Altered mental status likely secondary to infection. See plan below. -BMP (2) Pneumonia ICD Codes: J18.9 - Pneumonia, unspecified organism Status: Acute Plan: Plan to treat for aspiration and community acquired pneumonia. -Nothing by mouth until bedside swallow study -Vancomycin IV and Zosyn IV every 6 hours -Blood culture, CBC -Cough see her when necessary -Monitor vitals signs including telemetry and intake and output (3) Urinary tract infection ICD Codes: N39.0 - Urinary tract infection, site not specified Status: Acute Plan: -Antibiotics as above -Urine culture (4) Dehydration ICD Codes: E86.0 - Dehydration Plan: Patient presents with tachycardia, dry mucous membranes, skin tenting, urine specific gravity of 1.031 in the context of poor by mouth intake for the past few weeks. -Normal saline IV bolus -Normal saline with KCl IV at 100 mL per hour for maintenance fluids (5) Generalized weakness ICD Codes: R53.1 - Weakness Plan: -PT consult (6) Emphysema/COPD ICD Codes: J43.9 - Emphysema, unspecified Status: Chronic Plan: -DuoNeb's every 6 hours -Duo nebs every 4 hours when necessary for shortness of breath -Breo ellipta 1 puff inhaled daily (7) HTN (hypertension) ICD Codes: I10 - Hypertension Status: Acute Plan: -Hydralazine 50 mg by mouth 3 times a day -Clonidine 0.1 mg by mouth every 8 hours when necessary for blood pressure over 160/90 (8) No contraindication to deep vein thrombosis (DVT) prophylaxis ICD Codes: Z78.9 - Other specified health status Status: Acute Plan: -Lovenox 40 mg subcutaneous every 24 hours (9) Nutrition, metabolism, and development symptoms ICD Codes: R63.8 - Other symptoms and signs concerning food and fluid intake Status: Acute Plan: Fluids: Normal saline with KCl for maintenance fluids Electrolytes: Monitor and replete Nutrition: Nothing by mouth pending bedside swallow evaluation, to advance to full diet as soon as possible (Mike Danielson MD R2) Physician Certification 2 Midnight Certification Type: Admission for Inpatient Services Order for Inpatient Services The services are ordered in accordance with Medicare regulations or non- Medicare payer requirements, as applicable. In the case of services not specified as inpatient-only, they are appropriately provided as inpatient services in accordance with the 2-midnight benchmark. Estimated LOS (days): 2 2 days is the estimated time the patient will need to remain in the hospital, assuming treatment plan goals are met and no additional complications. Post-Hospital Plan: Home (Mike Danielson MD R2) Problem Qualifiers (1) Altered mental status: Qualified Codes: R41.82 - Altered mental status, unspecified (2) Pneumonia: Qualified Codes: J18.9 - Pneumonia, unspecified organism (3) Urinary tract infection: Qualified Codes: N39.0 - Urinary tract infection, site not specified Mike Danielson MD R2 Aug 17, 2017 02:59 Lianna Dan MD Aug 17, 2017 17:03
[2017-08-17] MEDS ORDERED: SODIUM CHLOR 0.9% 1000 ML INJ 1,000 ML IV ONE (03:15)
[2017-08-17] MEDS: PIPERACIL-TAZO 4.5 GM PREMIX 100 ML IV SCH ×4 (03:17→23:43)
[2017-08-17] MEDS ORDERED: cefTRIAXone INJ 1,000 MG in SODIUM CHLORIDE 0.9% INJ 100 ML IV SCH (04:00)
[2017-08-17] MEDS: RESP: ALBUTEROL 2.5 MG/IPRATROPIUM 0.5 MG NEB (SCH) INH ×4 (04:08→21:52)
[2017-08-17] MEDS: NS + KCL 40 MEQ INJ 1,000 ML IV SCH ×3 (04:28→23:43)
[2017-08-17] MEDS ORDERED: AZITHROMYCIN INJ 500 MG in SODIUM CHLOR 0.9% 250 ML INJ 250 ML IV SCH (05:00)
[2017-08-17] MEDS ORDERED: cloNIDine HCL 0.1 MG TAB PO PRN (05:15)
[2017-08-17] MEDS: POTASSIUM CHLORIDE 20 MEQ CONTROLLED RELEASE TAB PO SCH (08:39)
[2017-08-17] MEDS: ENOXAPARIN SODIUM 40 MG/0.4 ML SYRINGE SQ SCH (08:39)
[2017-08-17] MEDS: SODIUM CHLORIDE 0.9% FLUSH 10 ML FLUSH IV FLUSH SCH ×2 (08:40→21:00)
[2017-08-17] MEDS: FLUTICASONE 200 MCG/VILANTEROL 25 MCG INHALER INH SCH (09:23)
[2017-08-17] MEDS: hydrALAZINE HCL 50 MG TAB PO SCH ×3 (09:25→17:57)
[2017-08-17] MEDS: VANCOMYCIN 1 GM/200 ML PREMIX IV SCH (10:59)
--- NOTE | 2017-08-17 13:27 | HHI.HP ---
[facility] Service Family Medicine Primary Care Physician Avila Becerra MD Admission Diagnosis Pneumonia, UTI Diagnoses: (1) Altered mental status (2) Pneumonia (3) Urinary tract infection (4) Dehydration (5) Generalized weakness (6) Emphysema/COPD (7) HTN (hypertension) (8) No contraindication to deep vein thrombosis (DVT) prophylaxis (9) Nutrition, metabolism, and development symptoms International Travel<30 Days: No Contact w/Intl Traveler<30days: No Known Affected Area: No History of Present Illness Patient is a 77-year-old with a h/o Emphysema, COPD, idiopathic pulmonary fibrosis, Squamous cell carcinoma of the left lung (diagnosed 06/09) who presented to the ED with progressively worsening altered mental status for the last 3 weeks. The patient is accompanied by her and daughter who help provide the history. Patient complains of coughing recently. Her family members report that she is becoming increasingly disoriented for the past 3 weeks, not acting like herself, not eating, not drinking water. They have an in-home nurse who noted foul urine. The family talked to our clinic, brought urine specimen, which was sent for UA, which showed UTI. Patient refused to eat, drink, take her antibiotics, so her family wanted to take her to the ED. The patient initially refused to go in the ED, but the family called me through the call center. I met them at the ED and found her not to have decision making capacity to refuse treatment, so she was taken into the ED. Her reports that she was having trouble swallowing water with pills, and she may have choked or aspirated. Dr. Avila Becerra is her primary care physician. Past Family Social History Past Medical History HTN Fibroids Probable mild dementia Noncompliance Emphysema, COPD, idiopathic pulmonary fibrosis: Follows with pulmonology: Dr. Looc Bilateral cataracts Anemia History of Low B12 Squamous cell carcinoma of the left lung, diagnosed 06/09 Other Physicians: Dr. Marcelino (Single Needle Operator) -Health Maintenance: Pt states Last Pap smear in 2007. As we do not have one on file would like to complete one here, and if normal does not need anymore. Pt continues to decline breast, pelvic exam, and rectal exam. Pt has never had colonoscopy, states her sister had a bad experience with perforation of bowel and continues to decline. Discussed CT Colonogram as alternative for colon cancer screening. Pt has not completed, states she "needs help with her insurance" before she can get these completed. Urged her to get these done. The patient's last tetanus shot was in September 2004. Declines Flu shot. Declines Pneumovax. Shingles vaccine: Ask at next visit Dexa scan: Ask at next visit Other studies: ECHO 11/04/2010 55-60% EF, mild LVH, increased pressure in R ventricle and pulm arteries ECHO 11/2015 ejection fraction of 55-60% Past Surgical History Tubal with removal of right tube and ovary 1960s left breast biopsy for benign breast condition many years ago Allergies: Coded Allergies: No Known Allergies (Unverified Allergy, Unknown, 08/16/17) Family History Stroke, CVD, CHF, cataracts, glaucoma?. No cancers, no diabetes. Social History T: 40+ pk year hx, Quit in 1992 E: none D: none Physical Exam Vital Signs Vital Signs Date Time Temp Pulse Resp B/P (MAP) Pulse Ox O2 Delivery O2 Flow Rate FiO2 08/17/17 12:00 95.4 96 20 151/82 (105) 94 08/17/17 08:00 96.7 91 20 142/79 (100) 94 08/17/17 03:39 97.7 94 18 164/89 (114) 95 08/17/17 03:27 08/16/17 22:50 103 20 147/94 (111) 95 Room Air 08/16/17 21:00 98.5 08/16/17 20:21 95 Room Air 08/16/17 19:51 97.8 116 20 185/103 (130) 97 Room Air Physical Exam GENERAL: This is a well-nourished, well-developed patient, in no apparent distress. SKIN: No rashes, ecchymoses or lesions. Cool and dry. HEAD: Atraumatic. Normocephalic. No temporal or scalp tenderness. EYES: Pupils equal round and reactive. Extraocular motions intact. No scleral icterus. No injection or drainage. ENT: Nose without bleeding, purulent drainage or septal hematoma. Throat without erythema, tonsillar hypertrophy or exudate. Uvula midline. Airway patent. NECK: Trachea midline. No JVD or lymphadenopathy. Supple, nontender, no meningeal signs. CARDIOVASCULAR: Regular rate and rhythm without murmurs, gallops, or rubs. RESPIRATORY: Clear to auscultation. Breath sounds equal bilaterally. No wheezes , rales, or rhonchi. GASTROINTESTINAL: Abdomen soft, non-tender, nondistended. No hepato-splenomegaly , or palpable masses. No guarding. MUSCULOSKELETAL: Extremities without clubbing, cyanosis, or edema. No joint tenderness, effusion, or edema noted. No calf tenderness. Negative Homans sign bilaterally. NEUROLOGICAL: Awake and alert. Cranial nerves II through XII intact. Motor and sensory grossly within normal limits. Five out of 5 muscle strength in all muscle groups. Normal speech. Laboratory Laboratory Tests Test 08/16/17 21:00 08/16/17 22:25 White Blood Count 9.7 Red Blood Count 5.44 Hemoglobin 13.2 Hematocrit 40.2 Mean Corpuscular Volume 73.9 Mean Corpuscular Hemoglobin 24.3 Mean Corpuscular Hemoglobin Concent 32.8 Red Cell Distribution Width 15.6 Platelet Count 330 Mean Platelet Volume 8.9 Neutrophils (%) (Auto) 72.3 Lymphocytes (%) (Auto) 17.7 Monocytes (%) (Auto) 8.1 Eosinophils (%) (Auto) 1.2 Basophils (%) (Auto) 0.7 Neutrophils # (Auto) 7.0 Lymphocytes # (Auto) 1.7 Monocytes # (Auto) 0.8 Eosinophils # (Auto) 0.1 Basophils # (Auto) 0.1 CBC Comment DIFF FINAL Differential Comment Prothrombin Time 12.1 Prothromb Time International Ratio 1.2 Activated Partial Thromboplast Time 26.3 Blood Urea Nitrogen 12 Creatinine 0.70 Random Glucose 104 Total Protein 9.0 Albumin 3.5 Calcium Level 11.0 Alkaline Phosphatase 80 Aspartate Amino Transf (AST/SGOT) 26 Alanine Aminotransferase (ALT/SGPT) 27 Total Bilirubin 0.5 Sodium Level 138 Potassium Level 3.6 Chloride Level 101 Carbon Dioxide Level 25.2 Anion Gap 12 Estimat Glomerular Filtration Rate 98 Lactic Acid Level 1.3 Ammonia LESS THAN 10 Troponin I LESS THAN 0.02 Thyroid Stimulating Hormone 3rd Gen 1.380 Salicylates Level LESS THAN 1.7 Acetaminophen Level LESS THAN 2.0 Ethyl Alcohol Level LESS THAN 3 Urine Color YELLOW Urine Turbidity HAZY Urine pH 5.5 Urine Specific [place] 1.031 Urine Protein 30 Urine Glucose (UA) NEG Urine Ketones 40 Urine Occult Blood NEG Urine Nitrite NEG Urine Bilirubin NEG Urine Urobilinogen 2.0 Urine Leukocyte Esterase LARGE Urine RBC 35 Urine WBC 107 Urine Squamous Epithelial Cells 6 Urine Calcium Oxalate Crystals MANY Urine Amorphous Sediment RARE Urine Bacteria OCC Urine Hyaline Casts 16 Urine Mucus MANY Microscopic Urinalysis Comment CATH-CULTURE IND Urine Opiates Screen NEG Urine Barbiturates Screen NEG Urine Amphetamines Screen NEG Urine Benzodiazepines Screen NEG Urine Cocaine Screen NEG Urine Cannabinoids Screen NEG Date/Time Source Procedure Growth Status 08/17/17 03:14 Blood Peripheral Aerobic Blood Culture Pending Received 08/17/17 03:14 Blood Peripheral Anaerobic Blood Culture Pending Received 08/16/17 22:25 Urine Catheterized Urine Urine Culture Pending Received Result Diagram: 08/16/17 2100 08/16/17 2100 Imaging Last Impressions Head CT 08/16/172018 Signed Impressions: Service Date/Time: Wednesday, August 16, 2017 20:33 - CONCLUSION: Normal examination for a patient of this age. Alexandr Fleipe MD Chest X-Ray 08/16/172018 Signed Impressions: Service Date/Time: Wednesday, August 16, 2017 20:26 - CONCLUSION: 1. Left basilar airspace disease new since May 17. Differential diagnosis includes pneumonia and aspiration. Underlying fibrotic changes. Alexandr Felipe MD [place] VTE Risk Assessment Caprini VTE Risk Assessment: Mod/High Risk (score >= 2) Caprini Risk Assessment Model Point Value = 1 Point Value = 2 Point Value = 3 Point Value = 5 Age 41-60 Minor surgery BMI > 25 kg/m2 Swollen legs Varicose veins or History of unexplained or recurrent spontaneous Oral contraceptives or hormone replacement Sepsis (< 1 month) Serious lung disease, including pneumonia (< 1 month) Abnormal pulmonary function Acute myocardial infarction Congestive heart failure (< 1 month) History of inflammatory bowel disease Medical patient at bed rest Age 61-74 Arthroscopic surgery Major open surgery (> 45 min) Laparoscopic surgery (> 45 min) Malignancy Confined to bed (> 72 hours) Immobilizing plaster cast Central venous access Age >= 75 History of VTE Family history of VTE Factor V Leiden Prothrombin [id number] Lupus anticoagulant Anticardiolipin antibodies Elevated serum homocysteine Heparin-induced thrombocytopenia Other congenital or acquired thrombophilia Stroke (< 1 month) Elective arthroplasty Hip, pelvis, or leg fracture Acute spinal cord injury (< 1 month) Prophylaxis Regimen Total Risk Factor Score Risk Level Prophylaxis Regimen 0-1 Low Early ambulation 2 Moderate Order ONE of the following: *Sequential Compression Device (SCD) *Heparin 5000 units SQ BID 3-4 Higher Order ONE of the following medications: *Heparin 5000 units SQ TID *Enoxaparin/Lovenox 40 mg SQ daily (WT < 150 kg, CrCl > 30 mL/min) *Enoxaparin/Lovenox 30 mg SQ daily (WT < 150 kg, CrCl > 10-29 mL/min) *Enoxaparin/Lovenox 30 mg SQ BID (WT < 150 kg, CrCl > 30 mL/min) AND/OR *Sequential Compression Device (SCD) 5 or more Highest Order ONE of the following medications: *Heparin 5000 units SQ TID (Preferred with Epidurals) *Enoxaparin/Lovenox 40 mg SQ daily (WT < 150 kg, CrCl > 30 mL/min) *Enoxaparin/Lovenox 30 mg SQ daily (WT < 150 kg, CrCl > 10-29 mL/min) *Enoxaparin/Lovenox 30 mg SQ BID (WT < 150 kg, CrCl > 30 mL/min) AND *Sequential Compression Device (SCD) Assessment and Plan Assessment and Plan Patient is a 77-year-old with a h/o Emphysema, COPD, idiopathic pulmonary fibrosis, Squamous cell carcinoma of the left lung (diagnosed 06/09) who presented to the ED with progressively worsening altered mental status for the last 3 weeks, found to have dehydration, UTI, and left lung pneumonia, community -acquired versus aspiration pneumonia. Plan to admit patient for IV antibiotics and IV fluids. Problem List: (1) Altered mental status ICD Codes: R41.82 - Altered mental status, unspecified Status: Acute Plan: Altered mental status likely secondary to infection. See plan below. -BMP (2) Pneumonia ICD Codes: J18.9 - Pneumonia, unspecified organism Status: Acute Plan: Plan to treat for aspiration and community acquired pneumonia. -Nothing by mouth until bedside swallow study -Vancomycin IV and Zosyn IV every 6 hours -Blood culture, CBC -Cough see her when necessary -Monitor vitals signs including telemetry and intake and output (3) Urinary tract infection ICD Codes: N39.0 - Urinary tract infection, site not specified Status: Acute Plan: -Antibiotics as above -Urine culture (4) Dehydration ICD Codes: E86.0 - Dehydration Plan: Patient presents with tachycardia, dry mucous membranes, skin tenting, urine specific gravity of 1.031 in the context of poor by mouth intake for the past few weeks. -Normal saline IV bolus -Normal saline with KCl IV at 100 mL per hour for maintenance fluids (5) Generalized weakness ICD Codes: R53.1 - Weakness Plan: -PT consult (6) Emphysema/COPD ICD Codes: J43.9 - Emphysema, unspecified Status: Chronic Plan: -DuoNeb's every 6 hours -Duo nebs every 4 hours when necessary for shortness of breath -Breo ellipta 1 puff inhaled daily (7) HTN (hypertension) ICD Codes: I10 - Hypertension Status: Acute Plan: -Hydralazine 50 mg by mouth 3 times a day -Clonidine 0.1 mg by mouth every 8 hours when necessary for blood pressure over 160/90 (8) No contraindication to deep vein thrombosis (DVT) prophylaxis ICD Codes: Z78.9 - Other specified health status Status: Acute Plan: -Lovenox 40 mg subcutaneous every 24 hours (9) Nutrition, metabolism, and development symptoms ICD Codes: R63.8 - Other symptoms and signs concerning food and fluid intake Status: Acute Plan: Fluids: Normal saline with KCl for maintenance fluids Electrolytes: Monitor and replete Nutrition: Nothing by mouth pending bedside swallow evaluation, to advance to full diet as soon as possible Problem Qualifiers (1) Altered mental status: Qualified Codes: R41.82 - Altered mental status, unspecified (2) Pneumonia: Qualified Codes: J18.9 - Pneumonia, unspecified organism (3) Urinary tract infection: Qualified Codes: N39.0 - Urinary tract infection, site not specified Laura Sahu MD R2 Aug 17, 2017 13:27
[2017-08-17] MEDS: NYSTAT/DIPHENHY/LIDO MOUTHWASH (Adult) 120ML SWISH-SWAL SCH ×2 (17:59→23:46)
[2017-08-18] VITALS (13 sets, daily range): BP systolic 129–169; BP diastolic 81–91; PULSE 85–113; RESP 18–24; TEMP 97.4–98.1; O2SAT 91–99
[2017-08-18] MEDS: VANCOMYCIN 1 GM/200 ML PREMIX IV SCH (01:15)
[2017-08-18] MEDS: RESP: ALBUTEROL 2.5 MG/IPRATROPIUM 0.5 MG NEB (SCH) INH ×4 (03:24→21:19)
[2017-08-18] MEDS: PIPERACIL-TAZO 4.5 GM PREMIX 100 ML IV SCH ×2 (04:38→09:10)
[2017-08-18 08:13] LABS: BICARBONATE 24.3 MEQ/L (21.0-32.0); CALCIUM 9.3 MG/DL (8.5-10.1); CREATININE 0.64 MG/DL (0.50-1.00)
[2017-08-18 08:33] LABS: AUTOMATED NEUTROPHIL # 5.9 TH/MM3 (1.8-7.7); BASOPHIL # 0.1 TH/MM3 (0-0.2); BASOPHIL % 0.7 % (0.0-2.0); EOSINOPHIL # 0.1 TH/MM3 (0-0.4); EOSINOPHIL % 1.9 % (0.0-4.0); HEMATOCRIT 36.3 % (35.0-46.0); HEMOGLOBIN 11.8 GM/DL (11.6-15.3); LYMPH % 12.6 % (9.0-44.0); MEAN CELL VOLUME 73.9 FL (80.0-100.0); MEAN CORPUSCULAR HGB CONC 32.6 % (32.0-36.0); MEAN PLATELET VOLUME 9.5 FL (7.0-11.0); MONO % 6.7 % (0.0-8.0); MONOCYTE # 0.5 TH/MM3 (0-0.9); NEUT % 78.1 % (16.0-70.0); PLATELET COUNT 256 TH/MM3 (150-450); RED BLOOD COUNT 4.92 MIL/MM3 (4.00-5.30); RED CELL DISTRIBUTION WIDTH 16.1 % (11.6-17.2); WHITE BLOOD COUNT 7.6 TH/MM3 (4.0-11.0)
[2017-08-18] MEDS: hydrALAZINE HCL 50 MG TAB PO SCH ×3 (09:09→18:54)
[2017-08-18] MEDS: NYSTAT/DIPHENHY/LIDO MOUTHWASH (Adult) 120ML SWISH-SWAL SCH ×4 (09:09→21:00)
[2017-08-18] MEDS: POTASSIUM CHLORIDE 20 MEQ CONTROLLED RELEASE TAB PO SCH (09:09)
[2017-08-18] MEDS: ENOXAPARIN SODIUM 40 MG/0.4 ML SYRINGE SQ SCH (09:10)
[2017-08-18] MEDS: SODIUM CHLORIDE 0.9% FLUSH 10 ML FLUSH IV FLUSH SCH ×2 (09:11→21:41)
[2017-08-18] MEDS: FLUTICASONE 200 MCG/VILANTEROL 25 MCG INHALER INH SCH (09:11)
[2017-08-18] MEDS ORDERED: PHARMACY ORDERED LAB ONE (09:45)
[2017-08-18] MEDS: NS + KCL 40 MEQ INJ 1,000 ML IV SCH ×2 (12:39→21:40)
--- NOTE | 2017-08-18 12:56 | HHI.FPPN ---
Subjective Remarks Ms Neal had no acute events overnight and slept well. Today she is comfortable but hasn't eaten anything. We are able to coax her to drink 2 bottles of Ensure at the bedside. She appears to have no idea why she is in the hospital. Denies CP, SOB, N/V/D, and DVT pain. (Duglas Llanos MD R1) Objective Vitals Vital Signs Date Time Temp Pulse Resp B/P (MAP) Pulse Ox O2 Delivery O2 Flow Rate FiO2 08/18/17 11:31 97.5 113 19 129/82 (98) 99 08/18/17 08:57 99 Nasal Cannula 2.00 08/18/17 08:05 97.4 85 18 142/91 (108) 99 08/18/17 04:35 93 20 154/81 (105) 99 08/18/17 04:03 87 08/18/17 03:09 92 20 169/91 (117) 99 08/18/17 01:13 99 Nasal Cannula 2.00 08/18/17 01:13 20 91 08/18/17 00:02 95 08/18/17 00:00 98.1 96 18 167/85 (112) 94 08/17/17 21:29 97.9 92 17 157/88 (111) 95 08/17/17 20:02 85 08/17/17 20:00 96 Nasal Cannula 2.00 08/17/17 17:54 80 18 161/96 (117) 94 I/O 08/17/17 08/17/17 08/17/17 08/18/17 08/18/17 08/18/17 07:00 15:00 23:00 07:00 15:00 23:00 Intake Total 100 ml 100 ml Balance 100 ml 100 ml Intake IV Total 100 ml 100 ml # Voids 1 1 # Bowel Movements 1 (Duglas Llanos MD R1) Result Diagram: 08/18/17 0640 08/18/17 0650 Imaging Last Impressions Head CT 08/16/172018 Signed Impressions: Service Date/Time: Wednesday, August 16, 2017 20:33 - CONCLUSION: Normal examination for a patient of this age. Alexandr Felipe MD Chest X-Ray 08/16/172018 Signed Impressions: Service Date/Time: Wednesday, August 16, 2017 20:26 - CONCLUSION: 1. Left basilar airspace disease new since May 17. Differential diagnosis includes pneumonia and aspiration. Underlying fibrotic changes. Alexandr Felipe MD Objective Remarks GENERAL: This is a well-nourished, well-developed patient in no apparent distress. SKIN: +skin tenting. No rashes, ecchymoses or lesions. Cool and dry. HEAD: Atraumatic. Normocephalic. EYES: Pupils equal round and reactive with bilateral arcus senilis. Extraocular motions intact. No scleral icterus. No injection or drainage. ENT: Dry mucous membranes. Chapped lips. Nose without bleeding or drainage. Throat without erythema, tonsillar hypertrophy or exudate. Uvula midline. Airway patent. NECK: Trachea midline. No lymphadenopathy. Supple, nontender, no meningeal signs. CARDIOVASCULAR: Regular rate and rhythm without murmur, gallop, or rub. RESPIRATORY: Lungs CTAB. No wheezes or rhonchi. No increased WOB. GASTROINTESTINAL: Abdomen soft, non-tender, nondistended. No guarding. MUSCULOSKELETAL: Extremities without clubbing, cyanosis, or edema. No joint tenderness, effusion, or edema noted. No calf tenderness. NEUROLOGICAL: Awake and alert. Cranial nerves II through XII grossly intact. Motor and sensory grossly within normal limits. Normal speech. Medications and IVs Current Medications Medications (Trade) Dose Ordered Sig/Damien Route Start Time Stop Time Status Last Admin (NS Flush) 2 ml UNSCH PRN IV FLUSH 08/17/17 01:00 (NS Flush) 2 ml BID IV FLUSH 08/17/17 09:00 08/17/17 08:40 (Duoneb Neb) 1 ampule Q6HR NEB INH 08/17/17 04:00 08/18/17 08:54 (Duoneb Neb) 1 ampule Q4HR NEB PRN INH 08/17/17 01:00 (Robitussin Dm 200-20 Mg/10 ml Liq) 10 ml Q4H PRN PO 08/17/17 01:00 (Lovenox Inj) 40 mg Q24H SQ 08/17/17 09:00 08/18/17 09:10 (Tylenol) 500 mg Q4H PRN PO 08/17/17 01:15 (Breo Ellipta 200-25 Inh) 1 puff DAILY INH 08/17/17 09:00 08/18/17 09:11 (Apresoline) 50 mg TID PO 08/17/17 09:00 08/18/17 09:09 (KCl) 20 meq DAILY PO 08/17/17 09:00 08/18/17 09:09 Potassium Chloride/Sodium Chloride 1,000 ml @ 100 mls/hr Q10H IV 08/17/17 03:15 08/17/17 23:43 (Catapres) 0.1 mg Q8HR PRN PO 08/17/17 05:15 08/18/17 03:13 (Magic Mouthwash Adult Liq) 5 ml QID SWISH-SWAL 08/17/17 18:00 08/18/17 09:09 Ceftriaxone Sodium 1000 mg/ Sodium Chloride 100 ml @ 200 mls/hr Q24H IV 08/18/17 13:00 UNV (Zithromax) 500 mg DAILY PO 08/19/17 09:00 UNV (Duglas Llanos MD R1) A/P Assessment and Plan Patient is a 77-year-old with a h/o Emphysema, COPD, idiopathic pulmonary fibrosis, Squamous cell carcinoma of the left lung (diagnosed 06/09) who presented to the ED with progressively worsening altered mental status for the last 3 weeks, found to have dehydration, UTI, and left lung pneumonia, community -acquired versus aspiration pneumonia. Plan to admit patient for IV antibiotics and IV fluids. Pt seen and dw Tonie Dan and Bean Becerra (Duglas Llanos MD R1) Attending Attestation Patient seen and examined. Case reviewed and discussed. Agree with plan of care as discussed with me and documented in the resident note. (iLanna Dan MD) Problem List: (1) Altered mental status ICD Codes: R41.82 - Altered mental status, unspecified Status: Resolved Plan: Altered mental status likely secondary to infection. See plan below. (2) Pneumonia ICD Codes: J18.9 - Pneumonia, unspecified organism Status: Acute Plan: Plan to treat for aspiration and community acquired pneumonia. -Rocephin 1g IV q24h -Azithromycin 500mg PO q24h -Blood cultures NGTD -Duonebs q4h scheduled -Mucinex q4h -Monitor daily labs (3) Urinary tract infection ICD Codes: N39.0 - Urinary tract infection, site not specified Status: Acute Plan: -Antibiotics as above -Urine culture w/mixed gram positive anibal (4) Dehydration ICD Codes: E86.0 - Dehydration Plan: Patient presents with tachycardia, dry mucous membranes, skin tenting, urine specific gravity of 1.031 in the context of poor by mouth intake for the past few weeks. -Normal saline IV bolus -Normal saline with KCl IV at 100 mL per hour for maintenance fluids (5) Generalized weakness ICD Codes: R53.1 - Weakness Plan: -PT consult (6) Emphysema/COPD ICD Codes: J43.9 - Emphysema, unspecified Status: Chronic Plan: -DuoNeb's every 6 hours -Duo nebs every 4 hours when necessary for shortness of breath -Breo ellipta 1 puff inhaled daily (7) HTN (hypertension) ICD Codes: I10 - Hypertension Status: Acute Plan: -Hydralazine 50 mg by mouth 3 times a day -Clonidine 0.1 mg by mouth every 8 hours when necessary for blood pressure over 160/90 (8) No contraindication to deep vein thrombosis (DVT) prophylaxis ICD Codes: Z78.9 - Other specified health status Status: Acute Plan: -Lovenox 40 mg subcutaneous every 24 hours (9) Nutrition, metabolism, and development symptoms ICD Codes: R63.8 - Other symptoms and signs concerning food and fluid intake Status: Acute Plan: Fluids: Normal saline with KCl for maintenance fluids Electrolytes: Monitor and replete Nutrition: Nothing by mouth pending bedside swallow evaluation, to advance to full diet as soon as possible (Duglas Llanos MD R1) Problem Qualifiers (1) Altered mental status: Qualified Codes: R41.82 - Altered mental status, unspecified (2) Pneumonia: Qualified Codes: J18.9 - Pneumonia, unspecified organism (3) Urinary tract infection: Qualified Codes: N39.0 - Urinary tract infection, site not specified Duglas Llanos MD R1 Aug 18, 2017 12:56 Lianna Dan MD Aug 21, 2017 09:20
[2017-08-18] MEDS: cefTRIAXone INJ 1,000 MG in SODIUM CHLORIDE 0.9% INJ 100 ML IV SCH (15:18)
[2017-08-19] VITALS (8 sets, daily range): BP systolic 118–160; BP diastolic 52–93; PULSE 68–115; RESP 16–20; TEMP 96.3–98.1; O2SAT 94–98
[2017-08-19] MEDS: RESP: ALBUTEROL 2.5 MG/IPRATROPIUM 0.5 MG NEB (SCH) INH ×3 (03:07→14:53)
[2017-08-19] MEDS: NS + KCL 40 MEQ INJ 1,000 ML IV SCH ×2 (05:15→06:02)
[2017-08-19 07:31] LABS: HEMATOCRIT 33.2 % (35.0-46.0); HEMOGLOBIN 10.7 GM/DL (11.6-15.3); MEAN CELL VOLUME 73.5 FL (80.0-100.0); MEAN CORPUSCULAR HEMOGLOBIN 23.6 PG (27.0-34.0); MEAN CORPUSCULAR HGB CONC 32.1 % (32.0-36.0); MEAN PLATELET VOLUME 8.9 FL (7.0-11.0); PLATELET COUNT 250 TH/MM3 (150-450); RED BLOOD COUNT 4.52 MIL/MM3 (4.00-5.30); RED CELL DISTRIBUTION WIDTH 15.7 % (11.6-17.2); WHITE BLOOD COUNT 7.7 TH/MM3 (4.0-11.0)
[2017-08-19 07:58] LABS: BICARBONATE 26.2 MEQ/L (21.0-32.0); CALCIUM 9.1 MG/DL (8.5-10.1); CREATININE 0.49 MG/DL (0.50-1.00)
[2017-08-19] MEDS ORDERED: AZITHROMYCIN 250 MG TAB PO SCH (09:00)
[2017-08-19] MEDS: hydrALAZINE HCL 50 MG TAB PO SCH (10:01)
[2017-08-19] MEDS: POTASSIUM CHLORIDE 20 MEQ CONTROLLED RELEASE TAB PO SCH (10:01)
[2017-08-19] MEDS: FLUTICASONE 200 MCG/VILANTEROL 25 MCG INHALER INH SCH (10:02)
[2017-08-19] MEDS: ENOXAPARIN SODIUM 40 MG/0.4 ML SYRINGE SQ SCH (10:02)
[2017-08-19] MEDS: NYSTAT/DIPHENHY/LIDO MOUTHWASH (Adult) 120ML SWISH-SWAL SCH ×2 (10:02→13:49)
[2017-08-19] MEDS: SODIUM CHLORIDE 0.9% FLUSH 10 ML FLUSH IV FLUSH SCH (10:03)
--- NOTE | 2017-08-19 10:36 | HHI.FPPN ---
Subjective Remarks Patient is doing well this morning with no complaints. She was sitting up in bed , eating breakfast very slowly. She denied chest pain, shortness of breath, nausea, vomiting, fever, chills, abdominal pain. Family at bedside wanted to know when patient will be discharged. (EkoLaura MD R2) Objective Vitals Vital Signs Date Time Temp Pulse Resp B/P (MAP) Pulse Ox O2 Delivery O2 Flow Rate FiO2 08/19/17 07:57 96.3 101 16 160/86 (110) 95 08/19/17 05:20 98.1 68 18 148/93 (111) 98 08/19/17 04:03 98 08/19/17 02:19 98 20 155/91 (112) 96 08/19/17 01:47 97.5 08/19/17 00:00 98 08/18/17 21:32 98.1 102 18 132/81 (98) 97 08/18/17 21:21 97 08/18/17 19:59 103 08/18/17 16:03 97.5 113 24 145/84 (104) 95 08/18/17 11:31 97.5 113 19 129/82 (98) 99 I/O 08/18/17 08/18/17 08/18/17 08/19/17 08/19/17 08/19/17 07:00 15:00 23:00 07:00 15:00 23:00 Intake Total 360 ml 1000 ml Balance 360 ml 1000 ml Intake Oral 360 ml IV Total 1000 ml # Voids 1 1 2 (EkoLaura MD R2) Result Diagram: 08/19/1748 08/19/17 0648 Objective Remarks GENERAL: This is a well-nourished, well-developed patient in no apparent distress. SKIN: +skin tenting. No rashes, ecchymoses or lesions. Cool and dry. HEAD: Atraumatic. Normocephalic. EYES: Pupils equal round and reactive with bilateral arcus senilis. Extraocular motions intact. No scleral icterus. No injection or drainage. NECK: Trachea midline. No lymphadenopathy. Supple, nontender, no meningeal signs. CARDIOVASCULAR: Tachycardic rate and rhythm without murmur, gallop, or rub. RESPIRATORY: Lungs CTAB. No wheezes or rhonchi. No increased WOB. GASTROINTESTINAL: Abdomen soft, non-tender, nondistended. No guarding. MUSCULOSKELETAL: Extremities without clubbing, cyanosis, or edema. No joint tenderness, effusion, or edema noted. No calf tenderness. NEUROLOGICAL: Awake and alert. Cranial nerves II through XII grossly intact. Motor and sensory grossly within normal limits. Normal speech. (Eko,Laura Mcintosh MD R2) A/P Assessment and Plan Patient is a 77-year-old with a h/o Emphysema, COPD, idiopathic pulmonary fibrosis, Squamous cell carcinoma of the left lung (diagnosed 06/09) who presented to the ED with progressively worsening altered mental status for the last 3 weeks, found to have dehydration, UTI, and left lung pneumonia, community -acquired versus aspiration pneumonia. She was admitted for IV antibiotics and IV fluids. Pt dw Dr. Dan Discharge Planning Possible discharge home today, if resolution of tachycardia (EkoLaura MD R2) Attending Attestation Patient seen and examined. Case reviewed and discussed. Agree with plan of care as discussed with me and documented in the resident note. (Lianna Dan MD) Problem List: (1) Altered mental status ICD Codes: R41.82 - Altered mental status, unspecified Status: Resolved Plan: Altered mental status likely secondary to infection. See plan below. (2) Pneumonia ICD Codes: J18.9 - Pneumonia, unspecified organism Status: Acute Plan: Plan to treat for aspiration and community acquired pneumonia. -Rocephin 1g IV q24h -Azithromycin 500mg PO q24h -Blood cultures NGTD -Duonebs q4h scheduled -Mucinex q4h -Monitor daily labs (3) Urinary tract infection ICD Codes: N39.0 - Urinary tract infection, site not specified Status: Acute Plan: -Antibiotics as above -Urine culture w/mixed gram positive anibal (4) Tachycardia ICD Codes: R00.0 - Tachycardia, unspecified Plan: -Patient tachycardic to 115 -Notably, she is on hydralazine 50 mg by mouth 3 times a day for high blood pressure -Due to propensity for tachycardia, will reduce hydralazine to 25 mg by mouth twice a day and add Procardia XL 30 mg by mouth daily -Continue to monitor vital signs (5) Dehydration ICD Codes: E86.0 - Dehydration Plan: Patient presents with tachycardia, dry mucous membranes, skin tenting, urine specific gravity of 1.031 in the context of poor by mouth intake for the past few weeks. -Normal saline IV bolus -Normal saline with KCl IV at 100 mL per hour for maintenance fluids (6) Generalized weakness ICD Codes: R53.1 - Weakness Plan: -PT consult: Recommend home with home health PT (7) Emphysema/COPD ICD Codes: J43.9 - Emphysema, unspecified Status: Chronic Plan: -DuoNeb's every 6 hours -Duo nebs every 4 hours when necessary for shortness of breath -Breo ellipta 1 puff inhaled daily (8) HTN (hypertension) ICD Codes: I10 - Hypertension Status: Acute Plan: -Hydralazine 25 mg by mouth twice a day -Procardia 30 mg XL by mouth daily, plan to discharge home on Procardia 60 mg XL by mouth daily -Clonidine 0.1 mg by mouth every 8 hours when necessary for blood pressure over 160/90 (9) No contraindication to deep vein thrombosis (DVT) prophylaxis ICD Codes: Z78.9 - Other specified health status Status: Acute Plan: -Lovenox 40 mg subcutaneous every 24 hours (10) Nutrition, metabolism, and development symptoms ICD Codes: R63.8 - Other symptoms and signs concerning food and fluid intake Status: Acute Plan: Fluids: Normal saline with KCl for maintenance fluids Electrolytes: Monitor and replete Nutrition: Regular adult diet (Laura Sahu MD R2) Problem Qualifiers (1) Altered mental status: Qualified Codes: R41.82 - Altered mental status, unspecified (2) Pneumonia: Qualified Codes: J18.9 - Pneumonia, unspecified organism (3) Urinary tract infection: Qualified Codes: N39.0 - Urinary tract infection, site not specified Laura Sahu MD R2 Aug 19, 2017 10:35 Lianna Dan MD Aug 21, 2017 09:09
[2017-08-19] MEDS ORDERED: LEVA500T33 PO (12:22)
--- NOTE | 2017-08-19 12:24 | HHI.DCPOC ---
Discharge Care Plan Diagnosis: (1) Mass of left lung (2) Altered mental status (3) Generalized weakness (4) Dehydration (5) HTN (hypertension) (6) Urinary tract infection (7) Pneumonia (8) pulmonary fibrosis Goals to Promote Your Health * To prevent worsening of your condition and complications * To maintain your health at the optimal level Directions to Meet Your Goals Take your medications as prescribed Follow your dietary instruction Follow activity as directed We encourage adequate nutrition. Please drink ensures or boost daily with meals. Also follow up with your PCP within 1 week. Keep your appointments as scheduled Take your immunizations and boosters as scheduled If your symptoms worsen call your PCP, if no PCP go to Urgent Care Center or Emergency Room Smoking is Dangerous to Your Health. Avoid second hand smoke Call the 24-hour hour crisis hotline for domestic abuse at Laura Sahu MD R2 Aug 19, 2017 12:24
--- NOTE | 2017-08-19 12:28 | HHI.FF ---
Face to Face Verification Diagnosis: (1) Altered mental status (2) Generalized weakness (3) pulmonary fibrosis (4) Mass of left lung (5) Shortness of breath (6) Urinary tract infection (7) Pneumonia (8) HTN (hypertension) Physical Therapy Order: Evaluate and Treat, Improve ambulation, Strength and gait training Home Health Nursing Order: Medical education Signs/symptoms of disease process Medication education-adverse effect Nursing assessment with vital signs I have seen patient Marley Neal on 08/19/17. My clinical findings support the need for the requested home health care services because: Ltd mobility - disease progression Patient has SOB Deconditioned w/ increased weakness Limited ability to care for self Need for psychosocial assistance Impaired cognition/judgement High risk of falls I certify that my clinical findings support that this patient is homebound because: Impaired cognitive ability/safety Unsteady gait/balance Unsafe to leave home unassisted Need for psychosocial assistance Unable to use public transportation Laura Sahu MD R2 Aug 19, 2017 12:28
[2017-08-19] MEDS ORDERED: NIFEdipine 30 MG SUSTAINED RELEASE TAB PO SCH (12:45)
[2017-08-19] MEDS: cefTRIAXone INJ 1,000 MG in SODIUM CHLORIDE 0.9% INJ 100 ML IV SCH (14:04)
[2017-08-19] MEDS ORDERED: NIFE1TAB86 PO (15:24)
[2017-08-19] MEDS ORDERED: HYDR-3799 PO (15:24)
[2017-08-19] MEDS ORDERED: SODIUM CHLORID 0.9% 500 ML INJ 500 ML IV ONE (16:00)
[2017-08-19] MEDS ORDERED: hydrALAZINE HCL 25 MG TAB PO SCH (21:00)
--- NOTE | 2017-08-20 12:25 | EKG ---
Date Performed: 08/19/2017 Time Performed: 10:37:41 PTAGE: 77 years EKG: SINUS TACHYCARDIA NONSPECIFIC T-WAVE ABNORMALITY ABNORMAL RHYTHM ECG PREVIOUS TRACING 08/16/17 Since the prior tracing, there has been no significant change DOCTOR: Vito Rowe Interpretating Date/Time 08/20/2017 12:22:39
== END 2017-08-19 20:13 | disposition home or self-care (01) ==
LOC: NEPE 19:49 → NEDA 08-17 00:04 → NEDH 08-17 04:38 → NEPFCDU 08-17 13:12
PROVIDERS: ADMIT Family Medicine; ATTEND Family Medicine
DX: J18.9 Pneumonia, unspecified organism (principal); N39.0 Urinary tract infection, site not specified; R41.82 Altered mental status, unspecified; J84.112 Idiopathic pulmonary fibrosis; J43.9 Emphysema, unspecified; B96.89 Other specified bacterial agents as the cause of diseases classified elsewhere; D64.9 Anemia, unspecified; M19.90 Unspecified osteoarthritis, unspecified site; E78.00 Pure hypercholesterolemia, unspecified; I50.9 Heart failure, unspecified; I11.0 Hypertensive heart disease with heart failure; K21.9 Gastro-esophageal reflux disease without esophagitis; Z87.891 Personal history of nicotine dependence; Z79.899 Other long term (current) drug therapy; F03.90 Unspecified dementia, unspecified severity, without behavioral disturbance, psychotic disturbance, mood disturbance, and anxiety; R94.31 Abnormal electrocardiogram [ECG] [EKG]; E86.0 Dehydration; R00.0 Tachycardia, unspecified
CPT/HCPCS: 70450; 71045; 80048; 80053; 80202; 80307; 81001; 82140; 83605; 84443; 84484; 85025; 85027; 85610; 85730; 87040; 87086; 87449; 92610; 93005; 94150; 94618; 94640; 94664; 96361; 96365; 96366; 96367; 96368; 96372; 97110; 97116; 97162; 99285; G0378; G8987; G8988; G8996; G8997; G8998; J0696; J1650; J2543; J3370; J3480; J7030; J7040

== ENCOUNTER 2017-09-07 01:45 | Emergency (ER) | payer MEDICARE ==
[~2017-09-07] VITALS: Ht 158.8 cm; Wt 66.7 kg
[~2017-09-07 01:45] MED LIST changes: -CHLO25TA2 PO; -D31000CA3 PO; +HYDR-3799 PO; -HYDR-3800 PO; +LEVA500T33 PO; -METO50TA PO; +NIFE1TAB86 PO
[2017-09-07 01:57] VITALS: BP 99/70; PULSE 102; RESP 20; TEMP 97.6; O2SAT 96
[2017-09-07 02:16] VITALS: BP 107/77; PULSE 102; RESP 20; O2SAT 96
[2017-09-07] MEDS ORDERED: SODIUM CHLORIDE 0.9% FLUSH 10 ML FLUSH IVF PRN (02:45)
[2017-09-07] MEDS ORDERED: RESP: ALBUTEROL 2.5 MG/IPRATROPIUM 0.5 MG NEB (SCH) INH ONE (02:45)
[2017-09-07 02:50] VITALS: PULSE 94; RESP 20; O2SAT 95
--- NOTE | 2017-09-07 02:54 | PD ---
HPI Chief Complaint: Respiratory Symptoms Time Seen by Provider: 02:40 Travel History International Travel<30 days: No Contact w/Intl Traveler<30days: No Traveled to known affect area: No History of Present Illness HPI 77-year-old female presents to the emergency department by private transportation in the care of her family for evaluation of shortness of breath and chest pain that she experienced at home. Patient has no chest pain or shortness of breath at this time. At time of chest pain she had no referred neck jaw back shoulder arm mid scapular or abdominal pain. Patient has had no recent lower extremity pain or swelling; no history of clotting disorder; no recent protracted bedrest surgical procedure or long distance travel. Patient was recently hospitalized for pneumonia and just completed a course of oral antibiotic last week. Patient is also in the process of being evaluated by a Dr. Marcos her oncologist for lung cancer. Patient refused chemotherapy radiation therapy and surgical intervention. Patient also has history of COPD and hypertension. PFSH Past Medical History Hx Anticoagulant Therapy: No Anemia: Yes Arthritis: Yes Asthma: No Autoimmune Disease: No Blood Disorders: No Heart Rhythm Problems: Yes (MURMURS) Cancer: No Cardiovascular Problems: Yes High Cholesterol: Yes Chemotherapy: No Chest Pain: Yes Congestive Heart Failure: Yes COPD: Yes Cerebrovascular Accident: No Diabetes: No Diminished Hearing: No Endocrine: Yes Gastrointestinal Disorders: Yes GERD: Yes Genitourinary: No Headaches: Yes Hypertension: Yes Immune Disorder: No Implanted Vascular Access Dvce: No Kidney Stones: Yes Musculoskeletal: Yes ("DISC PROBLEMS" SPINAL STENOSIS) Neurologic: Yes Psychiatric: No Reproductive: No Respiratory: Yes Immunizations Current: No Migraines: Yes Renal Failure: No Sleep Apnea: No Ulcer: Yes (1979) Influenza Vaccination: No ?: Not Menopausal: Yes Tubal Ligation: Yes Past Surgical History Gynecologic Surgery: Yes (PARTIAL HYSTERECTOMY FOM TUBAL ) Hysterectomy: Yes (partial) Oral Surgery: Yes (TEETH PULLED) Other Surgery: Yes (BIOPSY LEFT BREAST, RESULTS NEGATIVE) Social History Alcohol Use: No Tobacco Use: No (QUIT SMOKING 1992 After 30 years) Substance Use: No Allergies-Medications (Allergen,Severity, Reaction): Coded Allergies: No Known Allergies (Unverified Allergy, Unknown, 09/07/17) Reported Meds & Prescriptions Reported Meds & Active Scripts Active Procardia XL (Nifedipine) 60 Mg Tab 60 Mg PO DAILY Hydralazine HCl 25 Mg Tablet 25 Mg PO Q12HR Potassium Chloride ER (Potassium Chloride) 20 Meq Tab 20 Meq PO DAILY Ventolin Hfa 18 GM Inh (Albuterol Sulfate) 90 Mcg/Act Aer 2 Puff INH Q6H PRN Reported Breo Ellipta Inh (Fluticasone/Vilanterol) 200-25 Mcg/Act Inh 1 Puff INH DAILY Use daily at the same time. Proair Hfa 8.5 GM Inh (Albuterol Sulfate) 90 Mcg/Act Aer 2 Puff INH Q6H PRN 108 mcg/actuation Breo Ellipta Inh (Fluticasone/Vilanterol) 200-25 Mcg/Act Inh 1 Puff INH DAILY Use daily at the same time. Tylenol (Acetaminophen) 325 Mg Tab 500 Mg PO Q6H PRN Review of Systems Except as stated in HPI: all other systems reviewed are Neg Physical Exam Narrative GENERAL: Well-developed well-nourished thin female in no acute distress or respiratory distress without any stridor or hoarseness. SKIN: Warm and dry. HEAD: Atraumatic. Normocephalic. EYES: Pupils equal and round. No scleral icterus. No injection or drainage. ENT: No nasal bleeding or discharge. Mucous membranes pink and moist. NECK: Trachea midline. No JVD. CARDIOVASCULAR: Regular rate and rhythm. RESPIRATORY: No accessory muscle use bilateral crackles consistent with history of pulmonary fibrosis and COPD. Clear to auscultation. Breath sounds equal bilaterally. GASTROINTESTINAL: Abdomen soft, non-tender, nondistended. Hepatic and splenic margins not palpable. MUSCULOSKELETAL: Extremities without clubbing, cyanosis, or edema. No obvious deformities. NEUROLOGICAL: Awake and alert. No obvious cranial nerve deficits. Motor grossly within normal limits. Five out of 5 muscle strength in the arms and legs. Normal speech. PSYCHIATRIC: Appropriate mood and affect; insight and judgment normal. Data Data Last Documented VS Vital Signs Date Time Temp Pulse Resp B/P (MAP) Pulse Ox O2 Delivery O2 Flow Rate FiO2 09/07/17 03:25 97 20 110/66 (81) 95 Room Air 09/07/17 01:57 97.6 Orders Orders Complete Blood Count With Diff (09/07/17 02:40) Comprehensive Metabolic Panel (09/07/17 02:40) B-Type Natriuretic Peptide (09/07/17 02:40) Act Partial Throm Time (Ptt) (09/07/17 02:40) Prothrombin Time / Inr (Pt) (09/07/17 02:40) Magnesium (Mg) (09/07/17 02:40) Ckmb (Isoenzyme) Profile (09/07/17 02:40) Troponin I (09/07/17 02:40) Urinalysis - C+S If Indicated (09/07/17 02:40) Iv Access Insert/Monitor (09/07/17 02:40) Electrocardiogram (09/07/17 02:40) Ecg Monitoring (09/07/17 02:40) Oximetry (09/07/17 02:40) Oxygen Administration (09/07/17 02:40) Chest, Single Ap (09/07/17 02:40) Sodium Chloride 0.9% Flush (Ns Flush) (09/07/17 02:45) Albuterol-Ipratropium Neb (Duoneb Neb) (09/07/17 02:45) Sodium Chlorid 0.9% 500 Ml Inj (Ns 500 M (09/07/17 04:00) D-Dimer (09/07/17 03:05) Ed Discharge Order (09/07/17 05:12) Labs Laboratory Tests Test 09/07/17 03:05 09/07/17 04:30 White Blood Count 9.7 TH/MM3 Red Blood Count 5.26 MIL/MM3 Hemoglobin 12.3 GM/DL Hematocrit 38.0 % Mean Corpuscular Volume 72.2 FL Mean Corpuscular Hemoglobin 23.3 PG Mean Corpuscular Hemoglobin Concent 32.3 % Red Cell Distribution Width 15.5 % Platelet Count 334 TH/MM3 Mean Platelet Volume 9.1 FL Neutrophils (%) (Auto) 78.1 % Lymphocytes (%) (Auto) 15.5 % Monocytes (%) (Auto) 3.2 % Eosinophils (%) (Auto) 2.6 % Basophils (%) (Auto) 0.6 % Neutrophils # (Auto) 7.5 TH/MM3 Lymphocytes # (Auto) 1.5 TH/MM3 Monocytes # (Auto) 0.3 TH/MM3 Eosinophils # (Auto) 0.3 TH/MM3 Basophils # (Auto) 0.1 TH/MM3 CBC Comment AUTO DIFF Differential Comment AUTO DIFF CONFIRMED Platelet Estimate NORMAL Platelet Morphology Comment NORMAL Prothrombin Time 12.2 SEC Prothromb Time International Ratio 1.2 RATIO Activated Partial Thromboplast Time 27.9 SEC D-Dimer Quantitative (PE/DVT) 0.32 MG/L FEU Blood Urea Nitrogen 9 MG/DL Creatinine 0.77 MG/DL Random Glucose 113 MG/DL Total Protein 8.5 GM/DL Albumin 2.9 GM/DL Calcium Level 10.2 MG/DL Magnesium Level 2.2 MG/DL Alkaline Phosphatase 82 U/L Aspartate Amino Transf (AST/SGOT) 22 U/L Alanine Aminotransferase (ALT/SGPT) 15 U/L Total Bilirubin 0.4 MG/DL Sodium Level 135 MEQ/L Potassium Level 3.2 MEQ/L Chloride Level 99 MEQ/L Carbon Dioxide Level 30.3 MEQ/L Anion Gap 6 MEQ/L Estimat Glomerular Filtration Rate 88 ML/MIN Total Creatine Kinase 30 U/L Troponin I LESS THAN 0.02 NG/ML B-Type Natriuretic Peptide 34 PG/ML Urine Color YELLOW Urine Turbidity HAZY Urine pH 5.5 Urine Specific Candor 1.028 Urine Protein TRACE mg/dL Urine Glucose (UA) NEG mg/dL Urine Ketones 15 mg/dL Urine Occult Blood NEG Urine Nitrite NEG Urine Bilirubin NEG Urine Leukocyte Esterase SMALL Urine RBC 0-3 /hpf Urine WBC 6-8 /hpf Urine Squamous Epithelial Cells > 8 /hpf Urine Calcium Oxalate Crystals MOD /hpf Urine Bacteria OCC /hpf Urine Trichomonas PRESENT Microscopic Urinalysis Comment CULT NOT INDICATED MDM Medical Decision Making Medical Screen Exam Complete: Yes Emergency Medical Condition: Yes Medical Record Reviewed: Yes Interpretation(s) d-dimer: 0.32, not elevated Last Impressions Chest X-Ray 09/07/17 0240 Signed Impressions: Service Date/Time: August 02:48 - CONCLUSION: Pulmonary fibrosis and shallow lung volumes with left lung base mass. Kingsley Estevez MD CBC & BMP Diagram 09/07/17 03:05 Total Protein 8.5 H, Albumin 2.9 L, Calcium Level 10.2 H, Magnesium Level 2.2, Alkaline Phosphatase 82, Aspartate Amino Transf (AST/SGOT) 22, Alanine Aminotransferase (ALT/SGPT) 15, Total Bilirubin 0.4 Vital Signs Date Time Temp Pulse Resp B/P (MAP) Pulse Ox O2 Delivery O2 Flow Rate FiO2 09/07/17 03:25 97 20 110/66 (81) 95 Room Air 09/07/17 02:50 94 20 95 Room Air 09/07/17 02:16 102 18 96 Room Air 09/07/17 02:16 102 20 107/77 (87) 96 Room Air 09/07/17 01:57 97.6 102 20 99/70 (80) 96 Troponin I: Less than 0.02, not elevated; CK 30, not elevated; BNP 34, not elevated EKG normal sinus rhythm rate [address]-T changes no acute ST elevation injury pattern change right ventricular conduction delay Differential Diagnosis Dyspnea, PE, COPD, CHF, anemia, progression of lung malignancy, ACS, GA, pneumonia, UTI, sepsis, dehydration Narrative Course Patient placed on engineer with continuous pulse oximetry EKG performed which revealed no acute ST elevation injury pattern; specimens collections of resulting Chest x-ray showed chronic interstitial changes consistent with history of pulmonary fibrosis and left lower lobe lung mass consistent with history of pulmonary malignancy Lab values resulted mild hypokalemia of 3.2 patient encouraged to undergo CT pulmonary angiogram patient refuses CT but agrees to have d-dimer performed d- dimer collected D-dimer is 0.32, not elevated; urinalysis is greater than 8 squamous epithelial cells with calcium oxalate crystals Patient was clinically improved with receiving IV fluids for dehydration and encouraged to follow-up with her primary care provider and return to the emergency department as needed. Diagnosis Primary Impression: Dyspnea Qualified Codes: R06.00 - Dyspnea, unspecified Additional Impression: Dehydration Referrals: Primary Care Physician call for appointment your PCP, your oncologist Dr Marcos and your nut grinder Dr Loco Patient Instructions: General Instructions Stella Mckeon MD Sep 07, 2017 02:54
--- NOTE | 2017-09-07 03:10 | RADRPT ---
EXAM DATE/TIME: 09/07/2017 02:48 [facility] COMPARISON: CT PULMONARY ANGIOGRAM, May 17, 2017, 11:14. CT NEEDLE BIOPSY LUNG, LEFT, May 18, 2017, 16:1 6. CHEST SINGLE AP, August 16, 2017, 20:26. INDICATIONS : Shortness of breath for 12 hours MEDICAL HISTORY : Chronic obstructive pulmonary disease. enlarged heart, cystic fibrosis SURGICAL HISTORY : None. ENCOUNTER: Initial ACUITY: 1 day PAIN SCORE: 0/10 LOCATION: Bilateral chest FINDINGS: There is cardiomegaly, shallow lung volumes and pulmonary fibrosis. A rounded density at the left matthias g base is again seen measuring 4 cm and consistent with a left lung base mass in this patient with hi story of known left lung masses. CONCLUSION: Pulmonary fibrosis and shallow lung volumes with left lung base mass. Kingsley Estevez MD on September 07, 2017 at 3:06 Board Certified Radiologist. This report was verified electronically.
[2017-09-07 03:23] LABS: AUTOMATED NEUTROPHIL # 7.5 TH/MM3 (1.8-7.7); BASOPHIL # 0.1 TH/MM3 (0-0.2); BASOPHIL % 0.6 % (0.0-2.0); EOSINOPHIL # 0.3 TH/MM3 (0-0.4); EOSINOPHIL % 2.6 % (0.0-4.0); HEMOGLOBIN 12.3 GM/DL (11.6-15.3); LYMPH % 15.5 % (9.0-44.0); LYMPHOCYTE # 1.5 TH/MM3 (1.0-4.8); MEAN CELL VOLUME 72.2 FL (80.0-100.0); MEAN CORPUSCULAR HEMOGLOBIN 23.3 PG (27.0-34.0); MEAN CORPUSCULAR HGB CONC 32.3 % (32.0-36.0); MEAN PLATELET VOLUME 9.1 FL (7.0-11.0); MONO % 3.2 % (0.0-8.0); MONOCYTE # 0.3 TH/MM3 (0-0.9); NEUT % 78.1 % (16.0-70.0); PLATELET COUNT 334 TH/MM3 (150-450); RED BLOOD COUNT 5.26 MIL/MM3 (4.00-5.30); RED CELL DISTRIBUTION WIDTH 15.5 % (11.6-17.2); WHITE BLOOD COUNT 9.7 TH/MM3 (4.0-11.0)
[2017-09-07 03:25] VITALS: BP 110/66; PULSE 97; RESP 20; O2SAT 95
[2017-09-07 03:26] LABS: CHLORIDE 99 MEQ/L (98-107); SODIUM (NA) 135 MEQ/L (136-145)
[2017-09-07 03:29] LABS: CALCIUM 10.2 MG/DL (8.5-10.1)
[2017-09-07 03:30] LABS: ALBUMIN 2.9 GM/DL (3.4-5.0); BICARBONATE 30.3 MEQ/L (21.0-32.0); BLOOD UREA NITROGEN 9 MG/DL (7-18); GLUCOSE,RANDOM 113 MG/DL (74-106); INTERNATIONAL NORMALIZED RATIO 1.2 RATIO; MAGNESIUM 2.2 MG/DL (1.5-2.5); PROTHROMBIN TIME - PATIENT 12.2 SEC (9.8-11.6)
[2017-09-07 03:33] LABS: ALT (GPT) 15 U/L (10-53); AST (GOT) 22 U/L (15-37); CREATININE 0.77 MG/DL (0.50-1.00); GLOMERULAR FILTRATION RATE 88 ML/MIN (>89)
[2017-09-07 03:35] LABS: TOTAL BILIRUBIN ADULT 0.4 MG/DL (0.2-1.0); TOTAL PROTEIN 8.5 GM/DL (6.4-8.2)
[2017-09-07 03:36] LABS: ALKALINE PHOSPHATASE 82 U/L (45-117)
[2017-09-07 03:38] LABS: TROPONIN I LESS THAN 0.02 NG/ML (0.02-0.05)
[2017-09-07] MEDS ORDERED: SODIUM CHLORID 0.9% 500 ML INJ 500 ML IV ONE (04:00)
[2017-09-07 04:46] LABS: BLOOD, URINE NEG (NEG); GLUCOSE,URINE NEG (NEG); KETONE, URINE 15 mg/dL (NEG); NITRITE,URINE NEG (NEG); PH, URINE 5.5 (5.0-8.5); URINE LEUKOCYTE ESTERASE SMALL (NEG)
[2017-09-07 04:57] LABS: BILIRUBIN, URINE NEG (NEG); URINE COLOR YELLOW (YELLW/STRAW)
[2017-09-07 04:58] LABS: BACTERIA, URINE OCC /hpf; RBC, URINE 0-3 /hpf (0-3); SQUAMOUS EPITHELIAL CELL URINE > 8 /hpf (0-5)
[2017-09-07 04:59] LABS: CALCIUM OXALATE CRYSTALS,URINE MOD /hpf; TRICHOMONAS, URINE PRESENT
[2017-09-07 05:04] LABS: D-DIMER 0.32 MG/L FEU (0.00-0.50)
[2017-09-07] MEDS ORDERED: POTASSIUM CHLORIDE 20 MEQ CONTROLLED RELEASE TAB PO ONE (05:30)
[2017-09-07 05:41] VITALS: BP 114/62
--- NOTE | 2017-09-07 16:14 | EKG ---
Date Performed: 09/07/2017 Time Performed: 03:35:20 PTAGE: 77 years EKG: Sinus rhythm POSSIBLE RIGHT VENTRICULAR CONDUCTION DELAY NONSPECIFIC T-WAVE ABNORMALITY PERSISTENT NONSPECIFIC ST T-WAVE CHANGES CANNOT RULE OUT ISCHEAMIA. BORDERLINE ECG PREVIOUS TRACING : 08/19/2017 10 DOCTOR: Vito Rowe Interpretating Date/Time 09/07/2017 16:13:08
== END 2017-09-07 05:52 | disposition home or self-care (01) ==
LOC: PHED 01:45
DX: R06.00 Dyspnea, unspecified (principal); E86.0 Dehydration; J44.9 Chronic obstructive pulmonary disease, unspecified; I11.0 Hypertensive heart disease with heart failure; I50.9 Heart failure, unspecified; J84.10 Pulmonary fibrosis, unspecified; E84.9 Cystic fibrosis, unspecified; E78.00 Pure hypercholesterolemia, unspecified; M48.00 Spinal stenosis, site unspecified; Z87.442 Personal history of urinary calculi; Z87.891 Personal history of nicotine dependence; Z79.899 Other long term (current) drug therapy
CPT/HCPCS: 71045; 80053; 81001; 82550; 83735; 83880; 84484; 85025; 85379; 85610; 85730; 93005; 94664; 96360; 99285; J7040